=== PATIENT | female | born 1950 | race Caucasian/White ===

== ENCOUNTER 2019-04-24 07:54 | Outpatient (CLI) | payer MEDICARE, SELFPAY | END 2019-04-24 07:55 | disposition home or self-care (01) | PROVIDERS: PCP Internal Medicine; Visit Provider Nurse Practitioner | DX: E03.9 Hypothyroidism, unspecified (principal) | CPT/HCPCS: 36415; 84443 ==

== ENCOUNTER 2019-07-21 07:15 | Outpatient (CLI) | payer MEDICARE, SELFPAY ==
[2019-07-21 07:57] LABS: Alanine Aminotransferase 23 U/L (4-35); Albumin Level 4.5 g/dL (3.5-5.1); Alkaline Phosphatase 87 U/L (38-126); Aspartate Amino Transferase 29 U/L (14-36); Bilirubin,Total 0.6 mg/dL (0.2-1.3); Blood Urea Nitrogen 8 mg/dL (7-17); Calcium 10.4 mg/dL (8.4-10.2); Carbon Dioxide 29 mmol/L (22-30); Chloride 101 mmol/L (98-107); Estimated Glomerular Filt Rate > 60; Glucose 92 mg/dL (65-105); Potassium 3.7 mmol/L (3.4-5.0); Sodium 135 mmol/L (137-145)
[2019-07-21 08:08] LABS: Parathyroid Intact 95.9 pg/mL (7.5-53.5)
[2019-07-21 09:07] LABS: Free T4 Free Thyroxine 1.23 ng/mL (0.78-2.19)
[2019-07-23 22:34] LABS: Albumin 4.2 g/dL (3.8-4.8); Alpha 1 Globulin 0.3 g/dL (0.2-0.3); Alpha 2 Globulin 0.6 g/dL (0.5-0.9); Beta 1 Globulin 0.4 g/dL (0.4-0.6); Gamma Globulin 0.7 g/dL (0.8-1.7); Protein, Total 6.4 g/dL (6.1-8.1)
[2019-07-24 03:03] LABS: Triiodothyronine T3 Free 2.7 pg/mL (2.3-4.2)
[2019-07-25 16:13] LABS: PRA 1.64 ng/mL/h (0.25-5.82)
== END 2019-07-21 07:16 | disposition home or self-care (01) ==
PROVIDERS: PCP Internal Medicine; Referring Provider Internal Medicine Cardiovascular Disease; Visit Provider Internal Medicine Endocrinology, Diabetes & Metabolism
DX: E89.0 Postprocedural hypothyroidism (principal); I10 Essential (primary) hypertension; E83.52 Hypercalcemia
CPT/HCPCS: 36415; 80053; 82088; 83970; 84100; 84155; 84165; 84244; 84439; 84443; 84481

== ENCOUNTER 2019-07-28 12:43 | Outpatient (CLI) | payer MEDICARE, SELFPAY ==
--- NOTE | ~2019-07-28 | US_ITS ---
EXAMINATION: US thyroid DATE: 07/28/2019 13:14 INDICATION: Goiter. Radioactive iodine thyroid ablation 30 years ago. TECHNIQUE: Multiple ultrasound images of the thyroid were obtained. COMPARISON: Ultrasound 04/16/2018, chest CT 07/27/17 FINDINGS: The right thyroid lobe measures 0.7 cm. The left thyroid lobe measures 0.6 cm. No nodule. IMPRESSION: 1. Small thyroid. Reviewed, dictated and finalized at location A. IMPRESSION: 1. Small thyroid.
== END 2019-07-28 12:44 | disposition home or self-care (01) ==
PROVIDERS: PCP Internal Medicine; Visit Provider Internal Medicine Endocrinology, Diabetes & Metabolism
DX: E04.9 Nontoxic goiter, unspecified (principal)
CPT/HCPCS: 76536

== ENCOUNTER 2019-08-11 07:19 | Outpatient (CLI) | payer MEDICARE, SELFPAY ==
[2019-08-11 07:46] LABS: Blood Urea Nitrogen 17 mg/dL (7-17); Calcium 10.4 mg/dL (8.4-10.2); Carbon Dioxide 27 mmol/L (22-30); Chloride 100 mmol/L (98-107); Estimated Glomerular Filt Rate > 60; Glucose 91 mg/dL (65-105); Potassium 4.5 mmol/L (3.4-5.0); Sodium 133 mmol/L (137-145)
== END 2019-08-11 07:20 | disposition home or self-care (01) ==
PROVIDERS: PCP Internal Medicine; Visit Provider Internal Medicine Cardiovascular Disease
DX: I10 Essential (primary) hypertension (principal); Z79.899 Other long term (current) drug therapy; I71.2 Thoracic aortic aneurysm, without rupture
CPT/HCPCS: 36415; 80048

== ENCOUNTER → 2019-10-08 12:45 | Outpatient (CLI) | payer MEDICARE, SELFPAY ==
--- NOTE | ~2019-10-08 | MM_ITS ---
EXAMINATION: MM screening [facility]ie BI w yudith HISTORY: Screening TECHNIQUE: Craniocaudal and mediolateral oblique 3-D tomosynthesis images were obtained and synthetic 2-D images were generated. CAD analysis was submitted and interpreted. COMPARISON: Comparison to multiple prior studies sequentially, with oldest reviewed study dated 05/04. BREAST PARENCHYMAL COMPOSITION: There are scattered areas of fibroglandular density. FINDINGS: There is no evidence of suspicious mass, calcification, or architectural distortion to sugg est malignancy in either breast. There has been no suspicious interval change. IMPRESSION: 1. No mammographic evidence of malignancy. 2. Recommend routine screening mammography in one year. BI-RADS Category 1: Negative Reviewed, dictated and finalized at location A.
== END ==
PROVIDERS: Visit Provider Internal Medicine
DX: Z12.31 Encounter for screening mammogram for malignant neoplasm of breast (principal)
CPT/HCPCS: 77063; 77067

== ENCOUNTER → 2019-11-03 11:24 | Outpatient (CLI) | payer MEDICARE, SELFPAY ==
--- NOTE | ~2019-11-03 | DEXA_ITS ---
Bone Density Report Name: Freida Montana Age: 69 Sex: Female Ethnicity: White Date of : 1950 Indication: postmenopausal; screening for osteoporosis; height loss; Referring Provider: Mikie, Christen Portillo Study: Bone densitometry was performed. Exam Date: November 03, 2019 Accession number: [id number] Bone Density: Region BMD T-score Z-score Classification AP Spine (L1-L4) 0.890 -1.4 0.7 Osteopenia Femoral Neck (Left) 0.601 -2.2 -0.5 Osteopenia Total Hip (Left) 0.840 -0.8 0.6 Normal Femoral Neck (Right) 0.578 -2.4 -0.7 Osteopenia Total Hip (Right) 0.869 -0.6 0.9 Normal Total Hip Mean 0.855 -0.7 0.8 Normal World Health Organization criteria for BMD impression classify patients as: Normal (T-score at or above -1.0), Osteopenia (T-score between -1.0 and -2.5), or Osteoporosis (T-score at or below -2.5). 10-year Fracture Risk(1): Major Osteoporotic Fracture 13% Hip Fracture 3.0% Reported Risk Factors: [place] (), Neck BMD=0.578, BMI=23.1 (1) FRAX(R) Version 3.08. Fracture probability calculated for an untreated patient. Fracture probability may be lower if the patient has received treatment. Previous Exams: Region Exam Age BMD T-score BMD Change BMD Change Date g/cm2 vs Baseline vs Previous AP Spine(L1-L4) 11/03/2019 69 0.890 -1.4 -0.138* -0.079* 06/07/2012 62 0.970 -0.7 -0.059* -0.065* 01/03/2010 59 1.035 -0.1 0.007 0.007 03/04/2007 56 1.028 -0.2 Total Hip(Left) 11/03/2019 69 0.840 -0.8 -0.075* -0.053* 06/07/2012 62 0.894 -0.4 -0.022 0.004 01/03/2010 59 0.890 -0.4 -0.026 -0.026 03/04/2007 56 0.915 -0.2 Total Hip(Right) 11/03/2019 69 0.869 -0.6 -0.101* -0.009 06/07/2012 62 0.878 -0.5 -0.092* -0.035* 01/03/2010 59 0.913 -0.2 -0.057* -0.057* 03/04/2007 56 0.970 0.2 *Denotes significance at 95% confidence level, LSC for AP Spine = 0.022 g/cm2, LSC for Total Hip = 0.027 g/cm2 Clinical Information Provided by Patient: Has used the following medications: Vitamin D, Calcium Patient maximum height was 66.5 Menopause Age: 50 Does not regularly consume dairy products Drinks caffeinated beverages Onset of menses at age 16 Number of children 1 Impression: The patient has low bone mass, based on the Right Femoral Neck T
== END ==
PROVIDERS: PCP Internal Medicine; Visit Provider Internal Medicine Endocrinology, Diabetes & Metabolism
DX: N95.9 Unspecified menopausal and perimenopausal disorder (principal); M85.88 Other specified disorders of bone density and structure, other site; M85.852 Other specified disorders of bone density and structure, left thigh; M85.851 Other specified disorders of bone density and structure, right thigh
CPT/HCPCS: 77080

== ENCOUNTER 2019-11-12 08:23 | Outpatient (CLI) | payer MEDICARE, SELFPAY ==
[2019-11-12 09:09] LABS: Alanine Aminotransferase 17 U/L (4-35); Albumin Level 4.7 g/dL (3.5-5.1); Alkaline Phosphatase 81 U/L (38-126); Anion Gap 8 mmol/L (8-16); Aspartate Amino Transferase 25 U/L (14-36); Bilirubin,Total 0.7 mg/dL (0.2-1.3); Blood Urea Nitrogen 17 mg/dL (7-17); Calcium 10.9 mg/dL (8.4-10.2); Carbon Dioxide 28 mmol/L (22-30); Chloride 100 mmol/L (98-107); Estimated Glomerular Filt Rate > 60; Glucose 92 mg/dL (65-105); Phosphorus 3.2 mg/dL (2.5-4.5); Potassium 4.6 mmol/L (3.4-5.0); Sodium 136 mmol/L (137-145)
[2019-11-12 09:20] LABS: Parathyroid Intact 93.6 pg/mL (7.5-53.5)
[2019-11-12 09:41] LABS: Free T4 Free Thyroxine 1.37 ng/mL (0.78-2.19); Vitamin D 25 Hydroxy 73.2 ng/mL
== END 2019-11-12 08:24 | disposition home or self-care (01) ==
PROVIDERS: PCP Internal Medicine; Visit Provider Internal Medicine Endocrinology, Diabetes & Metabolism
DX: E03.9 Hypothyroidism, unspecified (principal); E21.0 Primary hyperparathyroidism
CPT/HCPCS: 36415; 80053; 82306; 83970; 84100; 84439; 84443; 84481

== ENCOUNTER 2019-11-14 08:05 | Outpatient (CLI) | payer MEDICARE, SELFPAY ==
[2019-11-14 08:50] LABS: Creatinine Urine 45.9 mg/dL
[2019-11-14 09:25] LABS: Creatinine 24 Hour Urine 0.5 gm/24 (0.8-1.8); Total Volume 24 Hour Urine 1200 ml
[2019-11-18 19:29] LABS: Total Volume 1200 mL; Urine Calcium 12.7 mg/dL
== END 2019-11-14 08:06 | disposition home or self-care (01) ==
PROVIDERS: PCP Internal Medicine; Visit Provider Internal Medicine Endocrinology, Diabetes & Metabolism
DX: E03.9 Hypothyroidism, unspecified (principal); E21.0 Primary hyperparathyroidism
CPT/HCPCS: 81050; 82340; 82570

== ENCOUNTER 2019-11-18 16:21 | Outpatient (CLI) | payer MEDICARE, SELFPAY ==
--- NOTE | ~2019-11-18 | CT_ITS ---
EXAMINATION: CT chest wo con EXAM DATE: 11/18/2019 16:36 INDICATION: Aortic valve insufficiency, ascending aortic aneurysm. TECHNIQUE: Spiral CT of the chest without contrast. Axial, coronal and sagittal images were reviewe d. Coronal maximum intensity pixel images of chest reviewed. The dose-length product (DLP) for this examination was 168.16 mGy-cm. The exposure was tailored according to patient size (auto mA exposur e control), and iterative reconstruction (ASIR) was used as additional dose reduction technique. Comp arison is made to prior examination from 06/07/2016. FINDINGS: At the level of pulmonary outflow tract the ascending aorta measures 4.8 cm, size unchange d going back to 2017. Mild emphysema and hyperinflation. No focal airspace disease. There are no pleu ral or pericardial effusions. Tracheobronchial tree is patent. There is no mediastinal, hilar or axillary lymphadenopathy. There is no pneumothorax. Mild cardiomegaly. No evidence of coronary a rterial calcification. Upper abdomen is unremarkable. There is mild to moderate thoracic spondylos is without osteoblastic or osteolytic lesions identified. IMPRESSION: Stable ascending aortic 4.8 cm aneurysm. Reviewed, dictated and finalized at location B.
== END 2019-11-18 16:22 | disposition home or self-care (01) ==
PROVIDERS: PCP Internal Medicine; Visit Provider Internal Medicine Cardiovascular Disease
DX: I35.1 Nonrheumatic aortic (valve) insufficiency (principal); I71.2 Thoracic aortic aneurysm, without rupture
CPT/HCPCS: 71250

== ENCOUNTER 2020-02-23 08:11 | Outpatient (CLI) | payer MEDICARE, SELFPAY ==
[2020-02-23 09:12] LABS: Alanine Aminotransferase 27 U/L (4-35); Albumin Level 4.5 g/dL (3.5-5.1); Alkaline Phosphatase 90 U/L (38-126); Anion Gap 8 mmol/L (8-16); Aspartate Amino Transferase 30 U/L (14-36); Bilirubin,Total 0.7 mg/dL (0.2-1.3); Blood Urea Nitrogen 16 mg/dL (7-17); Calcium 10.8 mg/dL (8.4-10.2); Carbon Dioxide 27 mmol/L (22-30); Chloride 98 mmol/L (98-107); Cholesterol 179 mg/dL (0-200); Estimated Glomerular Filt Rate > 60; Glucose 96 mg/dL (65-105); HDL Direct 62 mg/dL; Potassium 4.4 mmol/L (3.4-5.0); Sodium 133 mmol/L (137-145); Triglycerides 80 mg/dL (<150)
[2020-02-23 09:23] LABS: LDL Cholesterol Direct 90 mg/dL; Parathyroid Intact 112.3 pg/mL (7.5-53.5)
[2020-02-23 09:42] LABS: Thyroid Stimulating Hormone 0.925 uIU/mL (0.465-4.680)
== END 2020-02-23 08:12 | disposition home or self-care (01) ==
LOC: ANHLAB 08:25
PROVIDERS: PCP Internal Medicine; Visit Provider Internal Medicine
DX: E03.9 Hypothyroidism, unspecified (principal); I10 Essential (primary) hypertension; Z79.899 Other long term (current) drug therapy; E78.2 Mixed hyperlipidemia; E21.3 Hyperparathyroidism, unspecified
CPT/HCPCS: 36415; 80053; 80061; 83970; 84443

== ENCOUNTER 2020-05-17 08:19 | Outpatient (CLI) | payer MEDICARE, SELFPAY ==
[2020-05-17 09:08] LABS: Alanine Aminotransferase 23 U/L (4-35); Albumin Level 4.6 g/dL (3.5-5.1); Alkaline Phosphatase 80 U/L (38-126); Anion Gap 6 mmol/L (8-16); Aspartate Amino Transferase 30 U/L (14-36); Bilirubin,Total 0.6 mg/dL (0.2-1.3); Blood Urea Nitrogen 14 mg/dL (7-17); Calcium 10.7 mg/dL (8.4-10.2); Carbon Dioxide 28 mmol/L (22-30); Chloride 100 mmol/L (98-107); Estimated Glomerular Filt Rate 55; Glucose 92 mg/dL (65-105); Phosphorus 2.7 mg/dL (2.5-4.5); Potassium 4.6 mmol/L (3.4-5.0); Sodium 134 mmol/L (137-145)
[2020-05-17 09:17] LABS: Parathyroid Intact 101.2 pg/mL (7.5-53.5)
[2020-05-17 09:36] LABS: Thyroid Stimulating Hormone 0.837 uIU/mL (0.465-4.680)
[2020-05-17 09:53] LABS: Free T4 Free Thyroxine 1.26 ng/mL (0.78-2.19); Vitamin D 25 Hydroxy 81.9 ng/mL
[2020-05-21 06:34] LABS: Triiodothyronine T3 Free 2.8 pg/mL (2.3-4.2)
== END 2020-05-17 08:20 | disposition home or self-care (01) ==
PROVIDERS: PCP Internal Medicine; Visit Provider Internal Medicine Endocrinology, Diabetes & Metabolism
DX: E21.0 Primary hyperparathyroidism (principal); E03.9 Hypothyroidism, unspecified
CPT/HCPCS: 36415; 80053; 82306; 83970; 84100; 84439; 84443; 84481

== ENCOUNTER 2020-05-24 14:31 | Outpatient (CLI) | payer MEDICARE, SELFPAY | END 2020-05-24 14:32 | disposition home or self-care (01) | LOC: ANHCOVIDVC 14:31 | PROVIDERS: PCP Internal Medicine | DX: Z23 Encounter for immunization (principal) | CPT/HCPCS: 0001A; 91300 ==

== ENCOUNTER 2020-06-14 14:29 | Outpatient (CLI) | payer MEDICARE, SELFPAY | END 2020-06-14 14:30 | disposition home or self-care (01) | LOC: ANHCOVIDVC 14:29 | PROVIDERS: PCP Internal Medicine | DX: Z23 Encounter for immunization (principal) | CPT/HCPCS: 0002A; 91300 ==

== ENCOUNTER 2020-09-08 07:58 | Outpatient (CLI) | payer MEDICARE, SELFPAY ==
[2020-09-08 08:44] LABS: Sodium 132 mmol/L (137-145)
[2020-09-08 08:55] LABS: LDL Cholesterol Direct 73 mg/dL
[2020-09-08 09:11] LABS: Alanine Aminotransferase 20 U/L (4-35); Albumin Level 4.7 g/dL (3.5-5.1); Alkaline Phosphatase 73 U/L (38-126); Anion Gap 10 mmol/L (8-16); Aspartate Amino Transferase 25 U/L (14-36); Bilirubin,Total 0.8 mg/dL (0.2-1.3); Blood Urea Nitrogen 17 mg/dL (7-17); Calcium 11.1 mg/dL (8.4-10.2); Carbon Dioxide 26 mmol/L (22-30); Chloride 96 mmol/L (98-107); Cholesterol 174 mg/dL (0-200); Estimated Glomerular Filt Rate 49; Glucose 91 mg/dL (65-110); HDL Direct 64 mg/dL; Potassium 4.2 mmol/L (3.4-5.0); Triglycerides 61 mg/dL (<150)
== END 2020-09-08 07:59 | disposition home or self-care (01) ==
LOC: ANHLAB 08:04
PROVIDERS: PCP Internal Medicine; Visit Provider Nurse Practitioner
DX: E78.5 Hyperlipidemia, unspecified (principal)
CPT/HCPCS: 36415; 80053; 80061

== ENCOUNTER → 2020-10-22 12:05 | Outpatient (CLI) | payer MEDICARE, SELFPAY ==
--- NOTE | ~2020-10-22 | MM_ITS ---
EXAMINATION: MM screening cathie BI w yudith HISTORY: Screening mammogram TECHNIQUE: Craniocaudal and mediolateral oblique 3-D tomosynthesis images were obtained and synthetic 2-D images were generated. CAD analysis was submitted and interpreted. COMPARISON: 10/08/2019, 07/11/2018, 06/18/2017 bilateral digital screening mammogram examinations BREAST PARENCHYMAL COMPOSITION: There are scattered areas of fibroglandular density. FINDINGS: There is no evidence of suspicious mass, calcification, or architectural distortion to sugg est malignancy in either breast. There has been no suspicious interval change. IMPRESSION: 1. No mammographic evidence of malignancy. 2. Recommend routine screening mammography in one year. BI-RADS Category 1: Negative Reviewed, dictated and finalized at location A.
== END ==
PROVIDERS: PCP Internal Medicine; Visit Provider Internal Medicine
DX: Z12.31 Encounter for screening mammogram for malignant neoplasm of breast (principal)
CPT/HCPCS: 77063; 77067

== ENCOUNTER 2020-11-12 10:30 | Outpatient (CLI) | payer MEDICARE, SELFPAY ==
--- NOTE | ~2020-11-12 | CT_ITS ---
EXAMINATION: CT diagnostic chest wo con DATE: 11/12/2020 11:01 INDICATION: Thoracic aortic aneurysm TECHNIQUE: Computed tomography (CT) of the chest was performed without intravenous contrast. The dose -length product (DLP) was 136.28 mGy-cm. Automated exposure control and iterative reconstruction tech [employer] were employed. COMPARISON: 11/18/2019 FINDINGS: There is a stable 4.8 cm fusiform aneurysm of the ascending aorta measured at the level of the main pulmonary artery. No dissection is identified although sensitivity is limited by the absence of intravenous contrast. Cardiomegaly is noted. There is mild dependent atelectasis. No pathological ly enlarged thoracic lymph nodes are identified. There is no pleural effusion or pneumothorax. There is moderate thoracic spondylosis. IMPRESSION: 1. Stable fusiform aneurysm of the ascending aorta. Reviewed, dictated and finalized at location A.
== END 2020-11-12 10:31 | disposition home or self-care (01) ==
PROVIDERS: PCP Internal Medicine; Visit Provider Internal Medicine Cardiovascular Disease
DX: I71.2 Thoracic aortic aneurysm, without rupture (principal)
CPT/HCPCS: 71250

== ENCOUNTER 2020-11-15 09:00 | Outpatient (CLI) | payer MEDICARE, SELFPAY ==
[2020-11-15 09:33] LABS: Alanine Aminotransferase 22 U/L (4-35); Alkaline Phosphatase 79 U/L (38-126); Anion Gap 11 mmol/L (8-16); Aspartate Amino Transferase 31 U/L (14-36); Bilirubin,Total 0.7 mg/dL (0.2-1.3); Blood Urea Nitrogen 12 mg/dL (7-17); Calcium 11.1 mg/dL (8.4-10.2); Carbon Dioxide 23 mmol/L (22-30); Chloride 98 mmol/L (98-107); Estimated Glomerular Filt Rate 49; Glucose 103 mg/dL (65-110); Phosphorus 2.8 mg/dL (2.5-4.5); Potassium 4.3 mmol/L (3.4-5.0); Sodium 132 mmol/L (137-145)
[2020-11-15 09:46] LABS: Parathyroid Intact 119.4 pg/mL (7.5-53.5)
[2020-11-15 10:04] LABS: Thyroid Stimulating Hormone 0.908 uIU/mL (0.465-4.680)
[2020-11-15 10:17] LABS: Free T4 Free Thyroxine 1.63 ng/mL (0.78-2.19); Vitamin D 25 Hydroxy 66.8 ng/mL
[2020-11-18 06:51] LABS: Triiodothyronine T3 Free 2.6 pg/mL (2.3-4.2)
== END 2020-11-15 09:01 | disposition home or self-care (01) ==
LOC: ANHLAB 09:04
PROVIDERS: PCP Internal Medicine; Visit Provider Internal Medicine Endocrinology, Diabetes & Metabolism
DX: E21.0 Primary hyperparathyroidism (principal); E03.9 Hypothyroidism, unspecified
CPT/HCPCS: 36415; 80053; 82306; 83970; 84100; 84439; 84443; 84481

== ENCOUNTER 2021-03-14 07:58 | Outpatient (CLI) | payer MEDICARE, SELFPAY ==
[2021-03-14 08:41] LABS: Alanine Aminotransferase 19 U/L (4-35); Albumin Level 4.6 g/dL (3.5-5.1); Alkaline Phosphatase 85 U/L (38-126); Anion Gap 7 mmol/L (8-16); Aspartate Amino Transferase 26 U/L (14-36); Bilirubin,Total 0.7 mg/dL (0.2-1.3); Blood Urea Nitrogen 18 mg/dL (7-17); Calcium 10.9 mg/dL (8.4-10.2); Carbon Dioxide 25 mmol/L (22-30); Chloride 100 mmol/L (98-107); Cholesterol 166 mg/dL (0-200); Estimated Glomerular Filt Rate 44; Glucose 98 mg/dL (65-110); HDL Direct 54 mg/dL; Potassium 4.4 mmol/L (3.4-5.0); Sodium 132 mmol/L (137-145); Triglycerides 79 mg/dL (<150)
[2021-03-14 08:52] LABS: LDL Cholesterol Direct 72 mg/dL
== END 2021-03-14 07:59 | disposition home or self-care (01) ==
PROVIDERS: PCP Internal Medicine; Visit Provider Internal Medicine
DX: E78.2 Mixed hyperlipidemia (principal); I10 Essential (primary) hypertension
CPT/HCPCS: 36415; 80053; 80061

== ENCOUNTER 2021-05-19 12:39 | Outpatient (CLI) | payer MEDICARE, SELFPAY ==
[2021-05-19 13:41] LABS: Alanine Aminotransferase 20 U/L (4-35); Albumin Level 4.8 g/dL (3.5-5.1); Alkaline Phosphatase 105 U/L (38-126); Anion Gap 9 mmol/L (8-16); Aspartate Amino Transferase 30 U/L (14-36); Bilirubin,Total 0.6 mg/dL (0.2-1.3); Blood Urea Nitrogen 16 mg/dL (7-17); Calcium 10.7 mg/dL (8.4-10.2); Carbon Dioxide 26 mmol/L (22-30); Chloride 91 mmol/L (98-107); Estimated Glomerular Filt Rate 55; Glucose 109 mg/dL (65-110); Phosphorus 2.8 mg/dL (2.5-4.5); Sodium 126 mmol/L (137-145)
[2021-05-19 13:57] LABS: Free T4 Free Thyroxine 1.77 ng/mL (0.78-2.19); Vitamin D 25 Hydroxy 71.6 ng/mL
[2021-05-22 12:12] LABS: Triiodothyronine T3 Free 2.4 pg/mL (2.3-4.2)
== END 2021-05-19 12:40 | disposition home or self-care (01) ==
PROVIDERS: PCP Internal Medicine; Visit Provider Internal Medicine Endocrinology, Diabetes & Metabolism
DX: E03.9 Hypothyroidism, unspecified (principal); E21.0 Primary hyperparathyroidism
CPT/HCPCS: 36415; 80053; 82306; 83970; 84100; 84439; 84443; 84481

== ENCOUNTER 2021-09-21 08:29 | Outpatient (CLI) | payer MEDICARE, SELFPAY ==
[2021-09-21 10:05] LABS: Alanine Aminotransferase 23 U/L (6-35); Alkaline Phosphatase 77 U/L (38-126); Anion Gap 11 mmol/L (8-16); Aspartate Amino Transferase 30 U/L (14-36); Bilirubin,Total 0.6 mg/dL (0.2-1.3); Blood Urea Nitrogen 12 mg/dL (7-17); Calcium 11.3 mg/dL (8.4-10.2); Carbon Dioxide 25 mmol/L (22-30); Chloride 90 mmol/L (98-107); Cholesterol 156 mg/dL (0-200); Estimated Glomerular Filt Rate 49; Glucose 100 mg/dL (65-110); HDL Direct 65 mg/dL; Potassium 4.4 mmol/L (3.4-5.0); Sodium 126 mmol/L (137-145); Triglycerides 67 mg/dL (<150)
[2021-09-21 10:16] LABS: LDL Cholesterol Direct 63 mg/dL
== END 2021-09-21 08:30 | disposition home or self-care (01) ==
LOC: ANHLAB 08:32
PROVIDERS: PCP Internal Medicine; Visit Provider Nurse Practitioner
DX: E78.5 Hyperlipidemia, unspecified (principal)
CPT/HCPCS: 36415; 80053; 80061

== ENCOUNTER 2021-12-22 13:37 | Outpatient (CLI) | payer MEDICARE, SELFPAY ==
--- NOTE | ~2021-12-22 | CT_ITS ---
EXAMINATION:CT diagnostic chest wo con DATE: 12/22/2021 13:58 INDICATION: Ascending aortic aneurysm without rupture. TECHNIQUE: Computed tomography (CT) of the chest was performed without intravenous contrast. Automate d exposure control and iterative reconstruction technique were employed. The dose-length product (DLP ) was 135.41 mGy-cm. COMPARISON: Chest CT 11/12/2020 FINDINGS: There is mild scarring at the lung apices. There is mild atelectasis bilaterally. No pleura l effusion. Cardiomegaly is noted. No pericardial effusion. The aorta measures 4.6 cm at the sinuses of Valsalva, 4.2 cm at the sinotubular junction, 4.9 cm in the mid ascending aorta, 2.9 cm at the aor tic isthmus, and 2.5 cm in the mid descending aorta. There is moderate thoracic spondylosis and sever e cervical spondylosis. IMPRESSION: 1. Ectasia of ascending aorta measuring up to 4.9 cm, stable from 11/12/2020. Reviewed, dictated and finalized at location A. 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
== END 2021-12-22 13:38 | disposition home or self-care (01) ==
PROVIDERS: PCP Internal Medicine; Visit Provider Internal Medicine Cardiovascular Disease
DX: I71.40 Abdominal aortic aneurysm, without rupture, unspecified (principal)
CPT/HCPCS: 71250

== ENCOUNTER → 2022-01-06 10:35 | Outpatient (CLI) | payer MEDICARE, SELFPAY ==
--- NOTE | ~2022-01-06 | MM_ITS ---
EXAMINATION: MM screening [facility] BI w yudith HISTORY: Screening mammogram TECHNIQUE: Craniocaudal and mediolateral oblique 3-D tomosynthesis images were obtained and synthetic 2-D images were generated. CAD analysis was submitted and interpreted. COMPARISON: 10/22/2020, 10/08/2019, 07/11/2018 BREAST PARENCHYMAL COMPOSITION: There are scattered areas of fibroglandular density. FINDINGS: No suspicious mass, calcification, or architectural distortion are identified in either aries ast to suggest malignancy. There has been no suspicious interval change. IMPRESSION: 1. No mammographic evidence of malignancy. 2. Recommend routine screening mammography in one year. BI-RADS Category 1: Negative Reviewed, dictated and finalized at location A. 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
== END ==
PROVIDERS: PCP Internal Medicine; Visit Provider Internal Medicine
DX: Z12.31 Encounter for screening mammogram for malignant neoplasm of breast (principal)
CPT/HCPCS: 77063; 77067

== ENCOUNTER 2022-02-17 08:22 | Outpatient (CLI) | payer MEDICARE, SELFPAY ==
[2022-02-17 08:53] LABS: Alanine Aminotransferase 47 U/L (6-35); Albumin Level 4.7 g/dL (3.5-5.1); Alkaline Phosphatase 95 U/L (38-126); Anion Gap 9 mmol/L (8-16); Aspartate Amino Transferase 33 U/L (14-36); Bilirubin,Total 0.6 mg/dL (0.2-1.3); Blood Urea Nitrogen 17 mg/dL (7-17); Calcium 9.4 mg/dL (8.4-10.2); Carbon Dioxide 28 mmol/L (22-30); Chloride 98 mmol/L (98-107); Estimated Glomerular Filt Rate 55; Glucose 90 mg/dL (65-110); Phosphorus 3.1 mg/dL (2.5-4.5); Potassium 4.4 mmol/L (3.4-5.0); Sodium 135 mmol/L (137-145)
[2022-02-17 09:23] LABS: Thyroid Stimulating Hormone 0.967 uIU/mL (0.465-4.680)
[2022-02-17 10:35] LABS: Parathyroid Intact 117.7 pg/mL (7.5-53.5)
[2022-02-17 10:47] LABS: Free T4 Free Thyroxine 1.39 ng/mL (0.78-2.19); Vitamin D 25 Hydroxy 64.7 ng/mL
[2022-02-22 20:27] LABS: Triiodothyronine T3 Free 2.8 pg/mL (2.3-4.2)
== END 2022-02-17 08:23 | disposition home or self-care (01) ==
PROVIDERS: PCP Internal Medicine; Visit Provider Nurse Practitioner
DX: E03.9 Hypothyroidism, unspecified (principal); E21.0 Primary hyperparathyroidism
CPT/HCPCS: 36415; 80053; 82306; 83970; 84100; 84439; 84443; 84481

== ENCOUNTER → 2022-02-28 13:01 | Outpatient (CLI) | payer MEDICARE, SELFPAY ==
--- NOTE | ~2022-02-28 | DEXA_ITS ---
Bone Density Report Name: SEAN PORTILLO Age: 71 Sex: Female Ethnicity: White Date of : 1950 Indication: osteopenia; height loss; postmenopausal Referring Provider: Mikie, Christen Portillo Study: Bone densitometry was performed. Exam Date: February 28, 2022 Accession number: [id number] Bone Density: Region BMD T-score Z-score Classification AP Spine (L1-L4) 0.885 -1.5 0.7 Osteopenia Femoral Neck (Left) 0.553 -2.7 -0.8 Osteoporosis Total Hip (Left) 0.772 -1.4 0.2 Osteopenia Femoral Neck (Right) 0.530 -2.9 -1.0 Osteoporosis Total Hip (Right) 0.849 -0.8 0.8 Normal Total Hip Mean 0.811 -1.1 0.5 Osteopenia World Health Organization criteria for BMD impression classify patients as: Normal (T-score at or above -1.0), Osteopenia (T-score between -1.0 and -2.5), or Osteoporosis (T-score at or below -2.5). 10-year Fracture Risk: FRAX not reported because: Some T-score for Spine Total or Hip Total or Femoral Neck at or below -2.5 Previous Exams: Region Exam Age BMD T-score BMD Change BMD Change Date g/cm2 vs Baseline vs Previous AP Spine(L1-L4) 02/28/2022 71 0.885 -1.5 -0.143* -0.005 11/03/2019 69 0.890 -1.4 -0.138* -0.079* 06/07/2012 62 0.970 -0.7 -0.059* -0.065* 01/03/2010 59 1.035 -0.1 0.007 0.007 03/04/2007 56 1.028 -0.2 Total Hip(Left) 02/28/2022 71 0.772 -1.4 -0.144* -0.068* 11/03/2019 69 0.840 -0.8 -0.075* -0.053* 06/07/2012 62 0.894 -0.4 -0.022 0.004 01/03/2010 59 0.890 -0.4 -0.026 -0.026 03/04/2007 56 0.915 -0.2 Total Hip(Right) 02/28/2022 71 0.849 -0.8 -0.121* -0.020 11/03/2019 69 0.869 -0.6 -0.101* -0.009 06/07/2012 62 0.878 -0.5 -0.092* -0.035* 01/03/2010 59 0.913 -0.2 -0.057* -0.057* 03/04/2007 56 0.970 0.2 *Denotes significance at 95% confidence level, LSC for AP Spine = 0.022 g/cm2, LSC for Total Hip = 0.027 g/cm2 Clinical Information Provided by Patient: Has used the following medications: Vitamin D Patient maximum height was 66.5 Menopause Age: 50 No regular weight bearing exercise Does not regularly consume dairy products Drinks caffeinated beverages Onset of menses at age 16 Number of children 1 Impression: The patient has osteoporosis, based on the Right Femora
== END ==
PROVIDERS: PCP Internal Medicine; Visit Provider Internal Medicine Endocrinology, Diabetes & Metabolism
DX: M81.0 Age-related osteoporosis without current pathological fracture (principal); M85.88 Other specified disorders of bone density and structure, other site; M85.852 Other specified disorders of bone density and structure, left thigh
CPT/HCPCS: 77080

== ENCOUNTER 2022-03-31 08:42 | Outpatient (CLI) | payer MEDICARE, SELFPAY ==
[2022-03-31 10:23] LABS: Alanine Aminotransferase 44 U/L (6-35); Albumin Level 4.8 g/dL (3.5-5.1); Alkaline Phosphatase 95 U/L (38-126); Anion Gap 7 mmol/L (8-16); Aspartate Amino Transferase 38 U/L (14-36); Bilirubin,Total 0.7 mg/dL (0.2-1.3); Blood Urea Nitrogen 14 mg/dL (7-17); Calcium 9.6 mg/dL (8.4-10.2); Carbon Dioxide 28 mmol/L (22-30); Chloride 99 mmol/L (98-107); Cholesterol 177 mg/dL (0-200); Estimated Glomerular Filt Rate > 60; Glucose 91 mg/dL (65-110); HDL Direct 61 mg/dL; Potassium 4.5 mmol/L (3.4-5.0); Sodium 134 mmol/L (137-145); Triglycerides 77 mg/dL (<150)
[2022-03-31 10:34] LABS: LDL Cholesterol Direct 78 mg/dL
== END 2022-03-31 08:43 | disposition home or self-care (01) ==
PROVIDERS: PCP Nurse Practitioner; Visit Provider Internal Medicine
DX: E78.5 Hyperlipidemia, unspecified (principal); I10 Essential (primary) hypertension; Z79.899 Other long term (current) drug therapy
CPT/HCPCS: 36415; 80053; 80061

== ENCOUNTER 2022-07-20 07:00 | Outpatient (NON) | payer MEDICARE, SELFPAY | END 2022-07-20 07:01 | disposition home or self-care (01) | LOC: ANHLAB 07-21 10:02 | PROVIDERS: PCP Family Medicine; Visit Provider Internal Medicine Gastroenterology | DX: R19.5 Other fecal abnormalities (principal) | CPT/HCPCS: 88305 ==

== ENCOUNTER 2022-07-20 08:00 | Day surgery (SDC) | payer MEDICARE, SELFPAY ==
[2022-07-05 09:41] VITALS: BMI 20.9
--- NOTE | 2022-07-19 11:53 | WPDANESEPPF ---
Anes - Initial Pre Proc Eval Procedure: Operation Date: 07/20/22 09:30 Proposed Procedures p Diagnostic Colonoscopy - Ethan Balbuena MD <Jesu Hernandez MD - Last Filed: 07/19/22 11:55> Date/Time: 07/19/22 11:53 <Jesu Hernandez MD - Last Filed: 07/19/22 11:55> Surgeon: Ethan Balbuena MD <Jesu Hernandez MD - Last Filed: 07/19/22 11:55> Pre Op Diagnosis: Other Fecal Abnormalities <Jesu Hernandez MD - Last Filed: 07/19/22 11:55> Patient Data Age: 72 Gender: F Height: 1.68 m Weight: 59 kg <Jesu Hernandez MD - Last Filed: 07/19/22 11:55> Allergies Allergy/AdvReac Type Severity Reaction Status Date / Time No Known Allergies Allergy Unknown Verified 07/20/22 08:23 <Jesu Hernandez MD - Last Filed: 07/19/22 11:55> Home Medications Medication Instructions Recorded Confirmed Type spironolactone 25 1 tablet PO DAILY 09/11/19 07/20/22 History mg-hydrochlorothiazide 25 mg tablet levothyroxine 100 mcg tablet 100 mcg PO DAILY #90 tabs 10/07/19 07/20/22 Rx cholecalciferol (vitamin D3) 125 125 mcg PO DAILY 03/12/20 07/20/22 History mcg (5,000 unit) capsule multivitamin (Multiple Vitamins 1 tablet PO DAILY 03/12/20 07/20/22 History tablet) omega-3 fatty acids 1,000 mg 1,000 mg PO DAILY 03/12/20 07/20/22 History capsule (Fish Oil Concentrate) riboflavin (vitamin B2) 400 mg 400 mg PO DAILY 03/12/20 07/20/22 History tablet amlodipine 10 mg tablet 10 mg PO DAILY #90 tabs 12/14/21 07/20/22 Rx pravastatin 40 mg tablet See Rx Instructions .Route 02/15/22 07/20/22 Rx .COMPLEX #90 tabs cinacalcet 30 mg tablet 30 mg PO DAILY 04/06/22 07/20/22 History latanoprost 0.005 % eye drops 1 drp EACH EYE QPM 04/06/22 07/20/22 History lisinopril 40 mg tablet See Rx Instructions .Route 04/19/22 07/20/22 Rx .COMPLEX #180 tabs metoprolol succinate 50 mg See Rx Instructions .Route 06/27/22 07/20/22 Rx tablet,extended release 24 hr .COMPLEX #90 tabs sodium,potassium,mag sulfates 17.5 See Rx Instructions PO .COMPLEX 07/04/22 Rx gram-3.13 gram-1.6 gram oral soln #354 mL (Suprep Bowel Prep Kit) <Jesu Hernandez MD - Last Filed: 07/19/22 11:55> Patient hx anesthesia problems: none <Justin Harrell MD - Last Filed: 07/20/22 08:40> Family hx anesthesia problems: none <Justin Harrell MD - Last Filed: 07/20/22 08:40> Results Review: All pre-operative results and documents have been reviewed as part of the pre-operative evaluation. <Jesu Hernandez MD - Last Filed: 07/19/22 11:55> [facility] Past Medical History Medical History: Medical History Essential (primary) hypertension Glaucoma Hypercalcemia Hypothyroidism (acquired) Mild aortic stenosis 1.84 cm2 Mixed hyperlipidemia <Jesu Hernandez MD - Last Filed: 07/19/22 11:55> Family History Family History: Family History Father Family history of glaucoma, Onset Age: 90 Hypertension Family history of elevated blood lipids Family history of cardiovascular disease, Onset Age: 90 Mother Hypertension Family history of rheumatoid arthritis, Onset Age: 78 Sibling Family history of rheumatoid arthritis <Jesu Hernandez MD - Last Filed: 07/19/22 11:55> Social History Social History: Social History Smoking status: Never smoker Second hand tobacco smoke exposure: Yes Alcohol intake: former Alcohol use details: occasional Substance use: never Substance use type: does not use Lack of Transportation: No Lack of Food: Never True Current Housing: I Have Housing Concerned About Future Housing: No Difficulty Paying Gas/Electric Bills: No Difficulty Paying for Meds: No Currently Unemployed: No Education: High School Diploma/GED Difficulty w/ Childcare o
[2022-07-20 08:31] VITALS: BP 121/62; PULSE 64; RESP 16; TEMP 36.9; O2SAT 100
[2022-07-20] MEDS: LACTATED RINGERS 1,000 ML 150 ML IV CONT (08:36)
--- NOTE | 2022-07-20 09:15 | PM.HPGS ---
History of Present Illness History of Present Illness Consent: Risks, benefits, and alternatives have been discussed and questions answered. Patient agrees to proceed with procedure. Chief complaint: Other Fecal Abnormalities Narrative: Freida Loaiza is a 72 year old female Presents for screening colonoscopy. Patient recently found to have a positive Cologuard test. Patient states that her weight appetite bowel movements are normal. She denies abdominal pain. She has had no bleeding. Patient presents today for screening colonoscopy. Review of Systems Review of Systems: Review of systems noncontributory. [facility] Past Medical History Medical History Essential (primary) hypertension Glaucoma Hypercalcemia Hypothyroidism (acquired) Mild aortic stenosis 1.84 cm2 Mixed hyperlipidemia Family History Family History Father Family history of glaucoma, Onset Age: 90 Hypertension Family history of elevated blood lipids Family history of cardiovascular disease, Onset Age: 90 Mother Hypertension Family history of rheumatoid arthritis, Onset Age: 78 Sibling Family history of rheumatoid arthritis Social History Social History Smoking status: Never smoker Second hand tobacco smoke exposure: Yes Alcohol intake: former Alcohol use details: occasional Substance use: never Substance use type: does not use Lack of Transportation: No Lack of Food: Never True Current Housing: I Have Housing Concerned About Future Housing: No Difficulty Paying Gas/Electric Bills: No Difficulty Paying for Meds: No Currently Unemployed: No Education: High School Diploma/GED Difficulty w/ Childcare or Family Care: No Living arrangements: alone Spiritual care concerns: No Meds Home Medications and Allergies Home Medications Medication Instructions Recorded Confirmed Type spironolactone 25 1 tablet PO DAILY 09/11/19 07/20/22 History mg-hydrochlorothiazide 25 mg tablet levothyroxine 100 mcg tablet 100 mcg PO DAILY #90 tabs 10/07/19 07/20/22 Rx cholecalciferol (vitamin D3) 125 125 mcg PO DAILY 03/12/20 07/20/22 History mcg (5,000 unit) capsule multivitamin (Multiple Vitamins 1 tablet PO DAILY 03/12/20 07/20/22 History tablet) omega-3 fatty acids 1,000 mg 1,000 mg PO DAILY 03/12/20 07/20/22 History capsule (Fish Oil Concentrate) riboflavin (vitamin B2) 400 mg 400 mg PO DAILY 03/12/20 07/20/22 History tablet amlodipine 10 mg tablet 10 mg PO DAILY #90 tabs 12/14/21 07/20/22 Rx pravastatin 40 mg tablet See Rx Instructions .Route 02/15/22 07/20/22 Rx .COMPLEX #90 tabs cinacalcet 30 mg tablet 30 mg PO DAILY 04/06/22 07/20/22 History latanoprost 0.005 % eye drops 1 drp EACH EYE QPM 04/06/22 07/20/22 History lisinopril 40 mg tablet See Rx Instructions .Route 04/19/22 07/20/22 Rx .COMPLEX #180 tabs metoprolol succinate 50 mg See Rx Instructions .Route 06/27/22 07/20/22 Rx tablet,extended release 24 hr .COMPLEX #90 tabs sodium,potassium,mag sulfates 17.5 See Rx Instructions PO .COMPLEX 07/04/22 Rx gram-3.13 gram-1.6 gram oral soln #354 mL (Suprep Bowel Prep Kit) Allergies Allergy/AdvReac Type Severity Reaction Status Date / Time No Known Allergies Allergy Unknown Verified 07/20/22 08:23 Vital Signs Vital Signs - 24 hr 07/20/22 08:31 Temperature 98.5 F Pulse Rate 64 Respiratory Rate 16 Blood Pressure 121/62 Pulse Oximetry 100 Oxygen Delivery Room Air Exam Narrative: Physical exam reveals patient to be alert. Vital signs stable. HEENT exam is unremarkable. Patient is anicteric. Lungs are clear to auscultation and percussion. Heart is without murmur or extra sounds. Abdomen bowel sounds are present soft nontender with no organomegaly. Digital external recta
[2022-07-20 09:52] VITALS: BP 89/57; PULSE 62; RESP 16; O2SAT 100
[2022-07-20 10:02] VITALS: BP 113/86; PULSE 97; RESP 20; O2SAT 100
--- NOTE | 2022-07-20 10:05 | WPDANESPN ---
Anes - Prog Note Post-Op Date/Time: 07/20/22 10:05 Cardiovascular status: normal Respiratory status: normal Airway patency: baseline Mental status: baseline Post-Op hydration status: normal Vital Signs: Last Vital Signs Temp 36.9 C 07/20/22 08:31 Pulse 62 07/20/22 09:52 Resp 16 07/20/22 09:52 BP 89/57 L 07/20/22 09:52 Pulse Ox 100 07/20/22 09:52 O2 Del Method Room Air 07/20/22 09:52 Pain Score (VAS): 0/10 I/O: Intake & Output 07/19/22 07/20/22 07/20/22 23:59 07:59 15:59 Intake Total 600 Balance 600 Patient Feedback: Patient satisfied with anesthetic care.
[2022-07-20 10:12] VITALS: BP 110/78; PULSE 88; RESP 20; O2SAT 100
== END 2022-07-20 10:25 | disposition home or self-care (01) ==
PROVIDERS: PCP Family Medicine; Visit Provider Internal Medicine Gastroenterology
PROC: 0DJD8ZZ Inspection of Lower Intestinal Tract, Via Natural or Artificial Opening Endoscopic (ICD-10-PCS; CPT 45378; principal; 2022-07-20 09:30)
DX: R19.5 Other fecal abnormalities (principal)
CPT/HCPCS: 45385

== ENCOUNTER 2022-10-04 08:48 | Outpatient (CLI) | payer MEDICARE, SELFPAY ==
[2022-10-04 09:16] LABS: Alanine Aminotransferase 31 U/L (6-35); Albumin Level 4.9 g/dL (3.5-5.1); Alkaline Phosphatase 76 U/L (38-126); Anion Gap 9 mmol/L (8-16); Aspartate Amino Transferase 31 U/L (14-36); Bilirubin,Total 0.6 mg/dL (0.2-1.3); Blood Urea Nitrogen 18 mg/dL (7-17); Calcium 10.1 mg/dL (8.4-10.2); Carbon Dioxide 26 mmol/L (22-30); Chloride 99 mmol/L (98-107); Cholesterol 191 mg/dL (0-200); Estimated Glomerular Filt Rate 55; Glucose 95 mg/dL (65-110); HDL Direct 57 mg/dL; Potassium 5.1 mmol/L (3.4-5.0); Sodium 134 mmol/L (137-145); Triglycerides 126 mg/dL (<150)
[2022-10-04 09:30] LABS: LDL Cholesterol Direct 92 mg/dL
== END 2022-10-04 08:49 | disposition home or self-care (01) ==
LOC: ANHLAB 08:49
PROVIDERS: PCP Family Medicine; Visit Provider Nurse Practitioner
DX: E78.5 Hyperlipidemia, unspecified (principal)
CPT/HCPCS: 36415; 80053; 80061

== ENCOUNTER 2022-10-14 09:15 | Outpatient (CLI) | payer MEDICARE, SELFPAY ==
[2022-10-14 10:14] LABS: Alanine Aminotransferase 35 U/L (6-35); Albumin Level 4.9 g/dL (3.5-5.1); Alkaline Phosphatase 72 U/L (38-126); Anion Gap 7 mmol/L (8-16); Aspartate Amino Transferase 33 U/L (14-36); Bilirubin,Total 0.7 mg/dL (0.2-1.3); Blood Urea Nitrogen 19 mg/dL (7-17); Calcium 10.1 mg/dL (8.4-10.2); Carbon Dioxide 27 mmol/L (22-30); Chloride 98 mmol/L (98-107); Estimated Glomerular Filt Rate 49; Glucose 94 mg/dL (65-110); Phosphorus 2.8 mg/dL (2.5-4.5); Potassium 4.4 mmol/L (3.4-5.0); Sodium 132 mmol/L (137-145)
[2022-10-14 10:20] LABS: Basophils Percent Auto 0.7 % (0.2-1.2); Eosinophils Absolute Auto 0.4 K/mm3 (0-0.3); Eosinophils Percent Auto 6.5 % (0-4.4); Hematocrit 35.3 % (37.0-47.0); Hemoglobin 11.9 g/dL (12.0-15.0); Immature Granulocyte Absolute 0.01 K/mm3 (0.00-0.031); Immature Granulocyte Percent A 0.2 % (0-0.5); Lymphocytes Absolute Auto 1.05 K/mm3 (0.9-3.2); Lymphocytes Percent Auto 19.6 % (18.3-44.2); Mean Corpuscular HGB Conc 33.7 g/dl (32-36); Mean Corpuscular Hemoglobin 30.8 pg (26-34); Mean Corpuscular Volume 91.5 fl (80-100); Mean Platelet Volume 8.9 fl (7.4-10.4); Monocytes Absolute Auto 0.6 K/mm3 (0.1-0.6); Monocytes Percent Auto 11.7 % (2.6-8.5); Neutrophils Absolute Auto 3.3 K/mm3 (1.3-6.7); Neutrophils Percent Auto 61.3 % (45.5-73.1); Platelet Count Result 316 k/mm3 (150-375); Red Blood Count 3.86 M/mm3 (4.2-5.4); Red Cell Distribution Width 12.7 % (11.5-14.5); White Blood Count 5.4 K/mm3 (4.5-10.0)
[2022-10-14 10:24] LABS: Parathyroid Intact 114.9 pg/mL (7.5-53.5)
[2022-10-14 10:30] LABS: Free T4 Free Thyroxine 2.01 ng/mL (0.78-2.19); Vitamin D 25 Hydroxy 63.2 ng/mL
[2022-10-14 10:43] LABS: Thyroid Stimulating Hormone 0.277 uIU/mL (0.465-4.680)
[2022-10-18 13:19] LABS: Ionized Calcium 5.3 mg/dL (4.7-5.5)
== END 2022-10-14 09:16 | disposition home or self-care (01) ==
LOC: ANHLAB 09:19
PROVIDERS: PCP Family Medicine; Visit Provider Family Medicine
DX: E83.52 Hypercalcemia (principal); I35.0 Nonrheumatic aortic (valve) stenosis; I10 Essential (primary) hypertension; E78.2 Mixed hyperlipidemia; E21.3 Hyperparathyroidism, unspecified; E03.9 Hypothyroidism, unspecified
CPT/HCPCS: 36415; 80053; 82306; 82330; 83970; 84100; 84439; 84443; 85025

== ENCOUNTER 2022-12-11 09:38 | Outpatient (CLI) | payer MEDICARE, SELFPAY ==
--- NOTE | ~2022-12-11 | CT_ITS ---
EXAMINATION:CT diagnostic chest wo con DATE: 12/11/2022 09:59 INDICATION: Ascending aortic aneurysm. TECHNIQUE: Computed tomography (CT) of the chest was performed without intravenous contrast. Automate d exposure control and iterative reconstruction technique were employed. The dose-length product (DLP ) was 157.90 mGy-cm. COMPARISON: Chest CT 12/22/2021 FINDINGS: There is mild scarring at the lung apices. There is mild atelectasis bilaterally. There are a few pulmonary nodules measuring up to 3 mm, likely benign. No pleural effusion. The heart size is normal. There are coronary artery calcifications. No pericardial effusion. The aorta measures 4.6 cm at the sinuses of Valsalva, 4.3 cm at the sinotubular junction, 4.8 cm in the mid ascending aorta, 2. 6 cm at the aortic isthmus, and 2.7 cm in the mid descending aorta. There is severe cervical and thor acic spondylosis. IMPRESSION: 1. Stable ectasia of ascending aorta measuring up to 4.8 cm. Reviewed, dictated and finalized at location E.
== END 2022-12-11 09:39 | disposition home or self-care (01) ==
PROVIDERS: PCP Family Medicine; Visit Provider Internal Medicine Cardiovascular Disease
DX: I71.21 Aneurysm of the ascending aorta, without rupture (principal)
CPT/HCPCS: 71250

== ENCOUNTER 2023-01-15 09:36 | Outpatient (CLI) | payer MEDICARE, SELFPAY ==
[2023-01-15 10:28] LABS: Alanine Aminotransferase 40 U/L (6-35); Albumin Level 4.9 g/dL (3.5-5.1); Alkaline Phosphatase 71 U/L (38-126); Anion Gap 8 mmol/L (8-16); Aspartate Amino Transferase 38 U/L (14-36); Bilirubin,Total 0.7 mg/dL (0.2-1.3); Blood Urea Nitrogen 24 mg/dL (7-17); Calcium 10.2 mg/dL (8.4-10.2); Carbon Dioxide 26 mmol/L (22-30); Chloride 101 mmol/L (98-107); Estimated Glomerular Filt Rate 55; Glucose 95 mg/dL (65-110); Magnesium 1.3 mg/dL (1.6-2.3); Phosphorus 2.7 mg/dL (2.5-4.5); Potassium 4.6 mmol/L (3.4-5.0); Sodium 135 mmol/L (137-145)
[2023-01-15 10:37] LABS: Parathyroid Intact 125.5 pg/mL (7.5-53.5)
[2023-01-15 11:11] LABS: Vitamin D 25 Hydroxy 63.3 ng/mL
[2023-01-17 15:22] LABS: Albumin 4.2 g/dL (3.8-4.8); Alpha 1 Globulin 0.3 g/dL (0.2-0.3); Alpha 2 Globulin 0.7 g/dL (0.5-0.9); Beta 1 Globulin 0.5 g/dL (0.4-0.6); Gamma Globulin 0.7 g/dL (0.8-1.7); Protein, Total 6.7 g/dL (6.1-8.1)
[2023-01-18 21:58] LABS: Ionized Calcium 5.2 mg/dL (4.7-5.5)
[2023-01-19 10:44] LABS: Immunoglobulin A 96 mg/dL (70-320); TTG IGA AB <1.0 U/mL (<15.0)
== END 2023-01-15 09:37 | disposition home or self-care (01) ==
LOC: ANHLAB 09:38
PROVIDERS: PCP Family Medicine; Visit Provider Internal Medicine
DX: E03.9 Hypothyroidism, unspecified (principal); M81.0 Age-related osteoporosis without current pathological fracture; E21.3 Hyperparathyroidism, unspecified
CPT/HCPCS: 36415; 80053; 82306; 82330; 82570; 82784; 83735; 83970; 84100; 84155; 84156; 84165; 84166; 86364

== ENCOUNTER 2023-01-17 10:16 | Outpatient (CLI) | payer MEDICARE, SELFPAY ==
[2023-01-17 10:56] LABS: Creatinine Urine 50.2 mg/dL
[2023-01-17 10:58] LABS: Creatinine 24 Hour Urine 0.3 gm/24 (0.8-1.8); Total Volume 24 Hour Urine 700 ml
[2023-01-21 18:39] LABS: Total Volume 600 mL; Urine Calcium 7.2 mg/dL
== END 2023-01-17 10:17 | disposition home or self-care (01) ==
LOC: ANHLAB 10:19
PROVIDERS: PCP Family Medicine; Visit Provider Internal Medicine
DX: M81.0 Age-related osteoporosis without current pathological fracture (principal); E21.3 Hyperparathyroidism, unspecified
CPT/HCPCS: 81050; 82340; 82570

== ENCOUNTER 2023-01-26 10:26 | Outpatient (CLI) | payer MEDICARE, SELFPAY ==
[2023-01-30 21:10] LABS: Creatinine, Random Urine 114 mg/dL (20-275); Total Protein/Creatinine Ratio 88 mg/g creat (24-184)
== END 2023-01-26 10:27 | disposition home or self-care (01) ==
PROVIDERS: PCP Family Medicine; Visit Provider Internal Medicine
DX: E21.3 Hyperparathyroidism, unspecified (principal); M81.0 Age-related osteoporosis without current pathological fracture
CPT/HCPCS: 82570; 84156; 84166

== ENCOUNTER 2023-01-27 12:52 | Emergency (ER) | payer MEDICARE, SELFPAY ==
[2023-01-27 13:08] VITALS: BP 113/59; PULSE 66; RESP 16; TEMP 37.8; O2SAT 97
--- NOTE | 2023-01-27 13:20 | ED.URI ---
HPI - URI/Sore Throat General Chief Complaint: Upper Respiratory Infection Stated Complaint: diarrhea,cough Time Seen by Provider: 01/27/23 14:01 Source: patient and RN notes reviewed Mode of arrival: ambulatory Limitations: no limitations History of Present Illness HPI Narrative: 72-year-old female presents with concern for nausea and diarrhea. Reports symptoms started in the middle of the night, she had an episode of diarrhea and she took Imodium and has not had diarrhea since then. She reports her stomach feels queasy. She denies fever, body aches, chills, sweats, nasal congestion, rhinorrhea, cough, sore throat Related Data Home Medications Medication Instructions Recorded Confirmed spironolactone 25 1 tablet PO DAILY 09/11/19 01/27/23 mg-hydrochlorothiazide 25 mg tablet cholecalciferol (vitamin D3) 125 125 mcg PO DAILY 03/12/20 01/27/23 mcg (5,000 unit) capsule multivitamin (Multiple Vitamins 1 tablet PO DAILY 03/12/20 01/27/23 tablet) omega-3 fatty acids 1,000 mg 1,000 mg PO DAILY 03/12/20 01/27/23 capsule (Fish Oil Concentrate) riboflavin (vitamin B2) 400 mg 400 mg PO DAILY 03/12/20 01/27/23 tablet cinacalcet 30 mg tablet 30 mg PO DAILY 04/06/22 01/27/23 latanoprost 0.005 % eye drops 1 drp EACH EYE QPM 04/06/22 01/27/23 aspirin 81 mg tablet,delayed 81 mg PO DAILY 01/11/23 01/27/23 release atorvastatin 40 mg tablet 40 mg PO DAILY 01/11/23 01/27/23 Allergies Allergy/AdvReac Type Severity Reaction Status Date / Time No Known Allergies Allergy Unknown Verified 01/27/23 13:02 Review of Systems Review of Systems: CONSTITUTIONAL: Denies malaise, chills, sweats, or fever. EYES: Denies visual changes, redness, or discharge. ENT: Reports rhinorrhea, congestion, sinus pain, otalgia and sore throat. CARDIOVASCULAR: Denies chest pain, palpitations, or edema. RESPIRATORY: Reports cough. Denies dyspnea. GASTROINTESTINAL: Denies abdominal pain, vomiting. Reports nausea and 1 episode of diarrhea SKIN: Denies rash or itching. MUSCULOSKELETAL: Denies myalgia. NEUROLOGIC: Denies headache. All systems reviewed & are unremarkable except as noted in HPI and below PMFSH Past Medical History Medical History Essential (primary) hypertension Glaucoma Hypercalcemia Hypothyroidism (acquired) Mild aortic stenosis 1.84 cm2 Mixed hyperlipidemia Family History Family History Father Family history of glaucoma, Onset Age: 90 Hypertension Family history of elevated blood lipids Family history of cardiovascular disease, Onset Age: 90 Mother Hypertension Family history of rheumatoid arthritis, Onset Age: 78 Sibling Family history of rheumatoid arthritis Social History Social History Smoking status: Never smoker Second hand tobacco smoke exposure: Yes Alcohol intake: former Alcohol use details: occasional Substance use: never Substance use type: does not use Lack of Transportation: No Lack of Food: Never True Current Housing: I Have Housing Concerned About Future Housing: No Difficulty Paying Gas/Electric Bills: No Difficulty Paying for Meds: No Currently Unemployed: No Education: High School Diploma/GED Difficulty w/ Childcare or Family Care: No Living arrangements: alone Spiritual care concerns: No Comments At time of signature, agree with nursing past medical, surgical, social and family history. There is no relevant family history pertinent to the presenting complaint Exam Narrative: GENERAL: Well-appearing, well-nourished, and in no acute distress. HEAD: Normocephalic EYES: PERRLA, conjunctivae clear ENT: Nares clear. Mucous membranes moist. TM pearly clarke with sharp light reflex bilaterally; no tragal tenderness. Oropharynx not erythematous without lesions. Tonsils not
== END 2023-01-27 14:08 | disposition home or self-care (01) ==
PROVIDERS: Emergency Provider Nurse Practitioner; PCP Family Medicine
DX: R19.7 Diarrhea, unspecified (principal); Z20.822 Contact with and (suspected) exposure to COVID-19; I10 Essential (primary) hypertension; H40.9 Unspecified glaucoma; E03.9 Hypothyroidism, unspecified; I35.0 Nonrheumatic aortic (valve) stenosis; E78.2 Mixed hyperlipidemia; Z79.82 Long term (current) use of aspirin
CPT/HCPCS: 87426; 87804; 99213; C9803; G0463

== ENCOUNTER 2023-02-21 12:20 | Outpatient (CLI) | payer MEDICARE, SELFPAY ==
--- NOTE | ~2023-02-21 | US_ITS ---
EXAMINATION: US thyroid DATE: 02/21/2023 13:19 INDICATION: Hypothyroidism. TECHNIQUE: Multiple ultrasound images of the thyroid were obtained. COMPARISON: Ultrasound 07/28/2019 FINDINGS: The right thyroid lobe measures 2.7 x 0.8 x 0.7 cm. The left thyroid lobe measures 2.5 x 0.9 x 0.8 c m. There is heterogeneous echogenicity in the thyroid. Vascularity is normal. In the left thyroid lo be, there is a 10 mm solid, hypoechoic, wider than tall nodule with smooth margin without echogenic f oci (TI-RADS TR4). IMPRESSION: 1. Small thyroid nodule. Thyroid ultrasound is recommended in one year. Reviewed, dictated and finalized at location A. [facility] [employer]
--- NOTE | ~2023-02-21 | NM_ITS ---
EXAMINATION: NM parathyroid imaging w spect DATE: 02/21/2023 16:04 INDICATION: Hyperparathyroidism. Age-related osteoporosis with recurrent pathological fracture. TECHNIQUE: 21 2 mCi Tc99m sestamibi was administered intravenously. Anterior images of the neck were obtained immediately and at 2 hours. SPECT images of the neck were obtained. COMPARISON: Thyroid ultrasound 02/21/2023, parathyroid scintigraphy 04/15/2018 FINDINGS: There are 2 foci of persistent activity in the area of the left thyroid lobe. IMPRESSION: 1. 2 foci of persistent activity in the area of left thyroid lobe, which may be parathyroid hyperplas ia or adenomas. Reviewed, dictated and finalized at location A. VERY OPERATOR IMPRESSION: 1. 2 foci of persistent activity in the area of left thyroid lobe, which may be parathyroid hyperplasia or adenomas.
== END 2023-02-21 12:21 | disposition home or self-care (01) ==
LOC: ANHIMG 12:25
PROVIDERS: PCP Family Medicine; Visit Provider Internal Medicine
DX: M81.0 Age-related osteoporosis without current pathological fracture (principal); E03.9 Hypothyroidism, unspecified; E21.3 Hyperparathyroidism, unspecified; E04.1 Nontoxic single thyroid nodule
CPT/HCPCS: 76536; 78071; A9500

== ENCOUNTER 2023-03-14 14:00 | Outpatient (CLI) | payer MEDICARE, SELFPAY ==
[2023-03-14 15:18] LABS: Total Volume 24 Hour Urine 2550 ml
[2023-03-14 15:39] LABS: Free T4 Free Thyroxine 1.68 ng/mL (0.78-2.19)
[2023-03-14 15:41] LABS: Creatinine 24 Hour Urine 0.8 gm/24 (0.8-1.8); Creatinine Urine 33.5 mg/dL
[2023-03-20 04:58] LABS: Total Volume 2550 mL; Urine Calcium 7.4 mg/dL
== END 2023-03-14 14:01 | disposition home or self-care (01) ==
LOC: ANHLAB 14:07
PROVIDERS: PCP Internal Medicine; Visit Provider Family Medicine
DX: E03.9 Hypothyroidism, unspecified (principal); E21.3 Hyperparathyroidism, unspecified
CPT/HCPCS: 36415; 81050; 82340; 82570; 84439; 84443

== ENCOUNTER 2023-05-15 09:22 | Outpatient (CLI) | payer MEDICARE, SELFPAY ==
[2023-05-15 10:31] LABS: Alanine Aminotransferase 33 U/L (6-35); Albumin Level 4.7 g/dL (3.5-5.1); Alkaline Phosphatase 75 U/L (38-126); Anion Gap 7 mmol/L (4-12); Aspartate Amino Transferase 38 U/L (14-36); Bilirubin,Total 0.6 mg/dL (0.2-1.3); Blood Urea Nitrogen 39 mg/dL (7-17); Calcium 10.8 mg/dL (8.4-10.2); Carbon Dioxide 26 mmol/L (22-30); Chloride 100 mmol/L (98-107); Estimated Glomerular Filt Rate 28; Glucose 97 mg/dL (65-110); Potassium 4.1 mmol/L (3.4-5.0); Sodium 133 mmol/L (137-145)
[2023-05-15 10:35] LABS: Parathyroid Intact 123.8 pg/mL (7.5-53.5)
[2023-05-15 11:44] LABS: Free T4 Free Thyroxine 1.52 ng/mL (0.78-2.19); Vitamin D 25 Hydroxy 68.6 ng/mL
[2023-05-17 15:35] LABS: Ionized Calcium 5.6 mg/dL (4.7-5.5)
== END 2023-05-15 09:23 | disposition home or self-care (01) ==
PROVIDERS: PCP Family Medicine; Visit Provider Internal Medicine
DX: E21.3 Hyperparathyroidism, unspecified (principal); E03.9 Hypothyroidism, unspecified; M81.0 Age-related osteoporosis without current pathological fracture; E78.2 Mixed hyperlipidemia
CPT/HCPCS: 36415; 80053; 82306; 82330; 83970; 84439; 84443

== ENCOUNTER 2023-07-11 13:39 | Outpatient (CLI) | payer MEDICARE, SELFPAY ==
--- NOTE | ~2023-07-11 | US_ITS ---
Renal-Bladder ultrasound Clinical History: Chronic kidney disease Technique: Real-time sonographic imaging of the kidneys and urinary bladder was performed. Findings: The right kidney measures 10.3 cm in length and the left kidney measures 10.4 cm. There is no hydronephrosis or renal calculus identified. Renal cortical echogenicity is within normal limits. Right renal cyst present. The urinary bladder is well distended at the time of this exam. No intraluminal echoes are identified . No abnormal wall thickening is seen. Impression: No significant abnormality seen. Reviewed, dictated and finalized at location . Impression: No significant abnormality seen.
== END 2023-07-11 13:40 | disposition home or self-care (01) ==
PROVIDERS: PCP Family Medicine; Visit Provider Internal Medicine Nephrology
DX: N17.9 Acute kidney failure, unspecified (principal); N18.30 Chronic kidney disease, stage 3 unspecified
CPT/HCPCS: 76775

== ENCOUNTER 2023-07-18 11:16 | Outpatient (CLI) | payer MEDICARE, SELFPAY ==
[2023-07-18 12:27] LABS: Albumin Level 5.2 g/dL (3.5-5.1); Anion Gap 11 mmol/L (4-12); Blood Urea Nitrogen 32 mg/dL (7-17); Calcium 11.2 mg/dL (8.4-10.2); Carbon Dioxide 23 mmol/L (22-30); Chloride 97 mmol/L (98-107); Estimated Glomerular Filt Rate 37; Glucose 91 mg/dL (65-110); Phosphorus 2.6 mg/dL (2.5-4.5); Potassium 4.1 mmol/L (3.4-5.0); Sodium 131 mmol/L (137-145)
[2023-07-18 12:35] LABS: Complement C3 95 mg/dL (88-165)
[2023-07-18 13:29] LABS: Total Protein Urine Random 9 mg/dL
[2023-07-18 14:03] LABS: Creatinine Urine 43.6 mg/dL; Ur Ttl Prot Creatinine Ratio 0.21 mg/mg (0-0.20)
[2023-07-19 13:12] LABS: Protein, Total 6.9 g/dL (6.1-8.1)
[2023-07-19 14:12] LABS: Creatinine, Random Urine 42 mg/dL (20-275); Total Protein/Creatinine Ratio 95 mg/g creat (24-184)
[2023-07-19 17:13] LABS: Albumin 4.6 g/dL (3.8-4.8); Alpha 1 Globulin 0.3 g/dL (0.2-0.3); Alpha 2 Globulin 0.7 g/dL (0.5-0.9); Beta 1 Globulin 0.5 g/dL (0.4-0.6); Gamma Globulin 0.7 g/dL (0.8-1.7)
[2023-07-20 14:28] LABS: Anti Glomerular Basement Memb <1.0 AI
[2023-07-21 12:20] LABS: ANCA Screen NEGATIVE (NEGATIVE)
[2023-07-24 12:32] LABS: Anti Nuclear Antibody Pattern Nuclear, Homogeneous; Anti Nuclear Antibody Titer 1:40 titer
== END 2023-07-18 11:17 | disposition home or self-care (01) ==
LOC: ANHLAB 11:23
PROVIDERS: PCP Family Medicine; Visit Provider Internal Medicine Nephrology
DX: N17.9 Acute kidney failure, unspecified (principal); N18.30 Chronic kidney disease, stage 3 unspecified
CPT/HCPCS: 36415; 80069; 82570; 83520; 84155; 84156; 84165; 84166; 86036; 86038; 86039; 86160; 86225

== ENCOUNTER 2023-08-17 12:57 | Outpatient (CLI) | payer MEDICARE, SELFPAY ==
--- NOTE | ~2023-08-17 | CT_ITS ---
EXAMINATION:CT diagnostic chest wo con DATE: 08/17/2023 13:42 INDICATION: Aneurysm of ascending aorta without rupture. TECHNIQUE: Computed tomography (CT) of the chest was performed without intravenous contrast. Automate d exposure control and iterative reconstruction technique were employed. The dose-length product (DLP ) was 155.05 mGy-cm. COMPARISON: Chest CT 12/11/2022 FINDINGS: There is mild scarring at the lung apices. There is mild atelectasis in inferior left lung. No pleural effusion. The heart size is normal. No pericardial effusion. There are coronary artery ca lcifications. The aorta measures 4.9 cm at the sinuses of Valsalva, 4.3 cm at the sinotubular junctio n, 4.9 cm in the mid ascending aorta, 2.7 cm in the aortic isthmus, and 2.6 cm in the mid descending aorta. There is moderate thoracic spondylosis. IMPRESSION: 1. Stable ectasia of ascending aorta measuring 4.9 cm. Reviewed, dictated and finalized at location A.
== END 2023-08-17 12:58 | disposition home or self-care (01) ==
PROVIDERS: PCP Family Medicine; Visit Provider Nurse Practitioner
DX: I71.21 Aneurysm of the ascending aorta, without rupture (principal)
CPT/HCPCS: 71250

== ENCOUNTER 2023-10-12 08:25 | Outpatient (CLI) | payer MEDICARE, SELFPAY ==
[2023-10-12 08:55] LABS: Hemoglobin 11.7 g/dL (12.0-15.0); Mean Corpuscular HGB Conc 33.4 g/dl (32-36); Mean Corpuscular Volume 92.8 fl (80-100); Mean Platelet Volume 8.8 fl (7.4-10.4); Platelet Count Result 347 k/mm3 (150-375); Red Blood Count 3.77 M/mm3 (4.2-5.4); Red Cell Distribution Width 12.3 % (11.5-14.5); White Blood Count 5.5 K/mm3 (4.5-10.0)
[2023-10-12 09:17] LABS: Alanine Aminotransferase 34 U/L (6-35); Albumin Level 4.9 g/dL (3.5-5.1); Alkaline Phosphatase 94 U/L (38-126); Anion Gap 13 mmol/L (4-12); Aspartate Amino Transferase 37 U/L (14-36); Bilirubin,Total 0.6 mg/dL (0.2-1.3); Blood Urea Nitrogen 40 mg/dL (7-17); Calcium 10.5 mg/dL (8.4-10.2); Carbon Dioxide 24 mmol/L (22-30); Chloride 94 mmol/L (98-107); Estimated Glomerular Filt Rate 32; Glucose 100 mg/dL (65-110); Potassium 4.5 mmol/L (3.4-5.0); Sodium 131 mmol/L (137-145)
== END 2023-10-12 08:26 | disposition home or self-care (01) ==
LOC: ANHLAB 08:28
PROVIDERS: PCP Family Medicine; Visit Provider Family Medicine
DX: E78.2 Mixed hyperlipidemia (principal); E03.9 Hypothyroidism, unspecified; I35.0 Nonrheumatic aortic (valve) stenosis; I10 Essential (primary) hypertension; E21.3 Hyperparathyroidism, unspecified; M81.0 Age-related osteoporosis without current pathological fracture
CPT/HCPCS: 36415; 80053; 84443; 85027

== ENCOUNTER 2023-11-06 14:23 | Outpatient (CLI) | payer MEDICARE, SELFPAY ==
[2023-11-06 15:14] LABS: Parathyroid Intact 138.9 pg/mL (14.5-75.2)
[2023-11-06 15:22] LABS: Anion Gap 15 mmol/L (4-12); Blood Urea Nitrogen 39 mg/dL (7-17); Calcium 10.1 mg/dL (8.4-10.2); Carbon Dioxide 23 mmol/L (22-30); Chloride 94 mmol/L (98-107); Estimated Glomerular Filt Rate 34; Glucose 102 mg/dL (65-110); Sodium 132 mmol/L (137-145)
[2023-11-06 15:37] LABS: Free T4 Free Thyroxine 1.38 ng/mL (0.78-2.19)
[2023-11-06 16:49] LABS: Potassium 4.4 mmol/L (3.4-5.0)
[2023-11-08 15:48] LABS: Ionized Calcium 5.3 mg/dL (4.7-5.5)
== END 2023-11-06 14:24 | disposition home or self-care (01) ==
LOC: ANHLAB 14:28
PROVIDERS: PCP Family Medicine; Visit Provider Internal Medicine
DX: M81.0 Age-related osteoporosis without current pathological fracture (principal); E03.9 Hypothyroidism, unspecified; E78.2 Mixed hyperlipidemia; E83.52 Hypercalcemia
CPT/HCPCS: 36415; 80048; 82330; 83970; 84439; 84443

== ENCOUNTER 2023-11-12 12:33 | Outpatient (CLI) | payer MEDICARE, SELFPAY ==
--- NOTE | ~2023-11-12 | US_ITS ---
EXAMINATION: US FNA w image guidance DATE: 11/12/2023 13:46 INDICATION: Left thyroid nodule. TECHNIQUE: The procedure and its benefits and risks were discussed with the patient. Risks specifically discusse d included bleeding. The patient verbalized understanding of the risks and agreed to proceed. The nec k was prepped and draped in the usual sterile manner. 1% lidocaine was used for local anesthesia. 4 passes were made with a 25G needle into the lesion under ultrasound guidance. There were no immedia te complications. FINDINGS: Grayscale ultrasound images demonstrate needles advanced into a 1.3 x 0.5 x 0.4 cm mixed cystic and s olid nodule in left thyroid lobe for biopsy. IMPRESSION: 1. Ultrasound-guided fine needle aspiration of a left thyroid nodule. Preliminary findings demonstra leonidas nondiagnostic samples. The biopsy was stopped at this point due to the small dimension of the nod ule along the trajectory of the needle and the proximity to the trachea. Reviewed, dictated and finalized at location A. IMPRESSION: 1. Ultrasound-guided fine needle aspiration of a left thyroid nodule. Prelimin harrison findings demonstrated nondiagnostic samples. The biopsy was stopped at this point due to the small dimension of the nodule along the trajectory of the nee dle and the proximity to the trachea.
== END 2023-11-12 12:34 | disposition home or self-care (01) ==
PROVIDERS: PCP Family Medicine; Visit Provider Internal Medicine
DX: E04.1 Nontoxic single thyroid nodule (principal)
CPT/HCPCS: 10005; 88172; 88173; 88177; 88305

== ENCOUNTER 2023-11-15 14:48 | Outpatient (CLI) | payer MEDICARE, SELFPAY ==
--- NOTE | ~2023-11-15 | MM_ITS ---
EXAMINATION: MM screening cathie BI w yudith HISTORY: Screening TECHNIQUE: Craniocaudal and mediolateral oblique 3-D tomosynthesis images were obtained and synthetic 2-D images were generated. CAD analysis was submitted and interpreted. COMPARISON: Comparison to multiple prior studies sequentially, with oldest reviewed study dated 06/06. BREAST PARENCHYMAL COMPOSITION: Not dense: There are scattered areas of fibroglandular density. FINDINGS: There is no evidence of suspicious mass, calcification, or architectural distortion to sugg est malignancy in either breast. There has been no suspicious interval change. IMPRESSION: 1. No mammographic evidence of malignancy. 2. Recommend routine screening mammography in one year. BI-RADS Category 1: Negative Reviewed, dictated and finalized at location B.
== END 2023-11-15 14:49 | disposition home or self-care (01) ==
LOC: MICIMG 14:49
PROVIDERS: PCP Family Medicine; Visit Provider Family Medicine
DX: Z12.31 Encounter for screening mammogram for malignant neoplasm of breast (principal)
CPT/HCPCS: 77063; 77067

== ENCOUNTER 2023-11-22 12:38 | Outpatient (CLI) | payer MEDICARE, SELFPAY ==
[2023-11-22 13:26] LABS: Albumin Level 5.1 g/dL (3.5-5.1); Anion Gap 14 mmol/L (4-12); Blood Urea Nitrogen 24 mg/dL (7-17); Calcium 10.5 mg/dL (8.4-10.2); Carbon Dioxide 25 mmol/L (22-30); Chloride 94 mmol/L (98-107); Estimated Glomerular Filt Rate 40; Glucose 101 mg/dL (65-110); Phosphorus 3.4 mg/dL (2.5-4.5); Potassium 4.1 mmol/L (3.4-5.0); Sodium 133 mmol/L (137-145)
[2023-11-22 13:30] LABS: Creatinine Urine 120.6 mg/dL; Total Protein Urine Random 6 mg/dL; Ur Ttl Prot Creatinine Ratio 0.05 mg/mg (0-0.20)
== END 2023-11-22 12:39 | disposition home or self-care (01) ==
PROVIDERS: PCP Family Medicine; Visit Provider Internal Medicine Nephrology
DX: I12.9 Hypertensive chronic kidney disease with stage 1 through stage 4 chronic kidney disease, or unspecified chronic kidney disease (principal); N18.32 Chronic kidney disease, stage 3b
CPT/HCPCS: 36415; 80069; 82570; 84156

== ENCOUNTER 2024-03-18 09:48 | Outpatient (CLI) | payer MEDICARE, SELFPAY ==
--- OUTSIDE RECORDS SUMMARY | 2024-03-18 10:24 | XMS_ITS | Patient Health Summary ---
Author Organization [facility] [employer] Address [address] [place] [address] Care Team Providers Care Immigration Associate Name Role Phone Vladimir Apple MD Primary Care Provider [phone] Note from [facility] [place][note 2],non-owned Affiliates and Associated Physician Practices is amultiple site organization consisting of ambulatory clinics and hospital sitesin [place], [place], [place] and [place]. This disclosure is being madepursuant to the Care Everywhere program and may not contain all information available regarding this patient. Last updated 17.[facility] [employer] Allergies No known active allergies Medications * Be aware that medications may not be up to date on this document. Alwaysverify current medications with the patient. * lisinopril (Prinivil; Zestril) 40 MG tablet Take 1 (one) tablet by mouth 2 times daily * amLODIPine (Norvasc) 10 MG tablet Take 1 (one) tablet by mouth once daily * levothyroxine (Synthroid) 100 MCG tablet(Started 11/21/2022) Take 1 (one) tablet by mouth every morning * metoprolol succinate XL 24hr (Toprol XL) 50 MG tablet Take 1 (one) tablet by mouth once daily * spironolactone-hydroCHLOROthiazide (Aldactazide 25) 25-25 MG tablet(Started 09/07/2022) Take 1 (one) tablet by mouth once daily * atorvastatin (Lipitor) 40 MG tablet Take 1 (one) tablet by mouth once daily * latanoprost (Xalatan) 0.005 % ophthalmic solution(Started 06/13/2023) Instill 1 (one) drop into both eyes at bedtime * Riboflavin 400 MG Take 1 tablet by mouth once daily * multivitamin daily tablet Take 1 (one) tablet by mouth once daily * [place]-3 Fatty Acids (fish oil) 500 MG capsule Take 1,200 (one thousand two hundred) mg by mouth once daily * vitamin D3 (Cholecalciferol) 25 MCG (1000 UNITS) tablet Take 2 (two) tablets by mouth once daily * acetaminophen (Tylenol) 500 MG tablet Take 1 (one) tablet by mouth every 4 hours as needed for Fever or Pain Maximum allowable Acetaminophen amount = 4 Grams (4000 mg) / 24 hours. * aspirin EC (Ecotrin) 81 MG tablet Take 1 (one) tablet by mouth once daily * cinacalcet (Sensipar) 30 MG tablet Take 0.5 (one-half) tablet by mouth once daily Active Problems Problem Noted Date Diagnosed Date Primary hyperparathyroidism 07/26/2023 Immunizations * FLU VACCINE TRI IIV3 SPLIT IM (FLUVIRIN)(Given 12/07/2013) * INFLUENZA VACCINE(Given 12/15/2013, 11/18/2012, 11/10/2011) * INFLUENZA VACCINE, ADJUVANTED, QUADR. (FLUAD QUADRIVALENT; 65Y+) (AIIV4)(Given 10/18/2019) * INFLUENZA VACCINE, HIGH-DOSE, QUADR. (FLUZONE HIGH-DOSE QUADRIVALENT; 65Y+), 0.7 ML (HD-IIV4)(Given 10/10/2022, 10/05/2021, 10/22/2020) * INFLUENZA VACCINE, HIGH-DOSE, TRIV. (FLUZONE HIGH-DOSE TRIVALENT; 65Y+) (HD-IIV3)(Given 11/11/2018, 11/25/2017, 11/07/2016, 12/23/2015) * INFLUENZA VACCINE, TRIV. (FLUZONE; FLULAVAL; FLUARIX; AFLURIA TRIVALENT; 6MO+), 0.5 ML (IIV3)(Given 10/31/2014) * PNEUMOCOCCAL PCV20 CONJ VAC IM(Given 10/05/2021) * PNEUMOCOCCAL PPV VACCINE(Given 10/18/2019) * Pneumococcal Pcv13 Conj(Given 12/23/2015) * TDAP, HISTORIC VACCINE(Given 10/11/2022) * ZOSTER VACCINE, LIVE(Given 12/07/2013) * Zoster Hzv Vacc Recombinant Inj Im(Given 02/14/2020) Social History Tobacco Use Types Packs/Day Years Used Date Smoking Tobacco: Never Smokeless Tobacco: Never Tobacco Cessation:Counseling Given: Not Answered Alcohol Use Standard Drinks/Week Comments Yes 0 (1 standard drink = 0.6 oz pur e alcohol) 2 a month Sex and Gender Information Value Date Recorded Sex Assigned at Not on file Gender Identity Not on file Sexual Orientation Not on file Last Filed Vital Signs Vital Sign Reading Time Taken Comments Blood Pressure 105/67 07/25/2023 2:39 PM CDT Pulse 62 07/25/2023 2:39 PM CDT Temperature - - Respiratory Rate - - Oxygen Saturation - - Inhaled Oxygen Concentration - - Weight 63.9 kg (140 lb 12.8 oz) 07/25/2023 2:39 PM CDT Height 167.6 cm (5' 6 ) 07/25/2023 2:39 PM CDT Body Mass Index 22.73 07/25/2023 2:39 PM CDT Care Teams Immigration Associate Relationship Specialty Start Date End Date Vladimir Apple MD [address] [place] [address] PCP - General Family Medicine 07/25/23
--- OUTSIDE RECORDS SUMMARY | 2024-03-18 10:24 | XMS_ITS | Clinical Summary ---
Author Organization [facility] [employer] Address [address] [place] [address] Care Team Providers Care Peoplesoft Hr Developer Name Role Phone Vladimir Apple MD Primary Care Provider [phone] Source Comments [facility] [employer],non-owned Affiliates and Associated Physician Practices is amultiple site organization consisting of ambulatory clinics and hospital sitesin [place], [place], [place] and [place]. This disclosure is being madepursuant to the Care Everywhere program and may not contain all information available regarding this patient. Last updated 17.[facility] [employer] Allergies No known active allergies Medications * Be aware that medications may not be up to date on this document. Alwaysverify current medications with the patient. Medication Sig Dispensed Refills Start Date End Date Status lisinopril (Prinivil; Zestril) 40 MG tablet Take 1 (one) tablet by mouth 2 times daily Active amLODIPine (Norvasc) 10 MG tablet Take 1 (one) tablet by mouth once daily Active levothyroxine (Synthroid) 100 MCG tablet Take 1 (one) tablet by mouth every morning 11/21/2022 Active metoprolol succinate XL 24hr (Toprol XL) 50 MG tablet Take 1 (one) tablet by mouth once daily Active spironolactone-hydr oCHLOROthiazide (Aldactazide 25) 25-25 MG tablet Take 1 (one) tablet by mouth once daily 09/07/2022 Active atorvastatin (Lipitor) 40 MG tablet Take 1 (one) tablet by mouth once daily Active latanoprost (Xalatan) 0.005 % ophthalmic solution Instill 1 (one) drop into both eyes at bedtime 06/13/2023 Active Riboflavin 400 MG Take 1 tablet by mouth once daily Active multivitamin daily tablet Take 1 (one) tablet by mouth once daily Active [place]-3 Fatty Acids (fish oil) 500 MG capsule Take 1,200 (one thousand two hundred) mg by mouth once daily Active vitamin D3 (Cholecalciferol) 25 MCG (1000 UNITS) tablet Take 2 (two) tablets by mouth once daily Active acetaminophen (Tylenol) 500 MG tablet Take 1 (one) tablet by mouth every 4 hours as needed for Fever or Pain Maximum allowable Acetaminophen amount = 4 Grams (4000 mg) / 24 hours. Active aspirin EC (Ecotrin) 81 MG tablet Take 1 (one) tablet by mouth once daily Active cinacalcet (Sensipar) 30 MG tablet Take 0.5 (one-half) tablet by mouth once daily Active Active Problems Problem Noted Date Diagnosed Date Primary hyperparathyroidism 07/26/2023 Immunizations Name Administration Dates Next Due FLU VACCINE TRI IIV3 SPLIT I M (FLUVIRIN) 12/07/2013 INFLUENZA VACCINE 12/15/2013,11/18/2012,11/10/19 12 INFLUENZA VACCINE, ADJUVANTE D, QUADR. (FLUAD QUADRIVALENT; 65Y+) (AIIV4) 10/18/2019 INFLUENZA VACCINE, HIGH-DOSE , QUADR. (FLUZONE HIGH-DOSE QUADRIVALENT; 65Y+), 0.7 ML (HD-IIV4) 10/10/2022,10/05/2021,10/22/2020 INFLUENZA VACCINE, HIGH-DOSE , TRIV. (FLUZONE HIGH-DOSE TRIVALENT; 65Y+) (HD-IIV3) 11/11/2018,11/25/2017,11/07/2016,2015 INFLUENZA VACCINE, TRIV. (FL UZONE; FLULAVAL; FLUARIX; AFLURIA TRIVALENT; 6MO+), 0.5 ML (IIV3) 10/31/2014 PNEUMOCOCCAL PCV20 CONJ VAC IM 10/05/2021 PNEUMOCOCCAL PPV VACCINE 10/18/2019 Pneumococcal Pcv13 Conj 12/23/2015 TDAP, HISTORIC VACCINE 10/11/2022 ZOSTER VACCINE, LIVE 12/07/2013 Zoster Hzv Vacc Recombinant Inj Im 02/14/2020 Family History Medical History Relation Name Comments Hypertension Father Arthritis - Rheumatoid Mother Arthritis - Rheumatoid Sister Relation Name Status Comments Father Mother Sister Social History Tobacco Use Types Packs/Day Years [...] Mass Index 22.73 07/25/2023 2:39 PM CDT Plan of Treatment Health Maintenance Due Date Last Done Comments BONE DENSITY TESTING 1950 COLOGUARD (AGES 45-75) - COLON CA SCREENING 1950 COLON MONITORING 1950 COLONOSCOPY - COLON CA SCREENING 1950 CT COLONOGRAPHY - COLON CA SCREENING 1950 Colorectal Cancer Screening 1950 FIT - COLON CA SCREENING 1950 FLEX SIG - COLON CA SCREENING 1950 MAMMOGRAM 1950 HEPATITIS C SCREENING 03/25/1968 ZOSTER VACCINE (3 of 3) 04/10/2020 02/14/2020, 12/07 COVID-19 VACCINE ( season) 2023 11/28/2022, 05/23/2022, 12/15/2020, Additional history exists INFLUENZA VACCINE (#1) 2023 , 10/05/2021, 10/22/2020, Additional history exists DEPRESSION SCREENING 02/13/2024 MEDICARE AWV ? CALENDAR YEAR 2024 Respiratory Syncytial Virus (RSV) Vaccine Pt: or over 60 yrs (1 - 1-dose 75+ series) 2025 DTAP/TDAP/TD VACCINES (2 - Td or Tdap) 10/11/2032 10/11/2022 PNEUMOCOCCAL VACCINE 50+ Completed 10/05/ 022, 10/18/2019, 12/23/2015 HEPATITIS B VACCINE Aged Out No longe r eligible based on patient's age to complete this topic HIB VACCINE Aged Out No longer eligi ble based on patient's age to complete this topic HPV VACCINE Aged Out No longer eligi ble based on patient's age to complete this topic MENINGOCOCCAL (Group B) VACCINE Aged Out No longer eligible based on patient's age to complete this topic MENINGOCOCCAL VACCINE Aged Out No raiza albert eligible based on patient's age to complete this topic Care Teams Peoplesoft Hr Developer Relationship Specialty Start Date End Date Vladimir Apple MD [address] [place] [id number] PCP - General Family Medicine 07/25/23
--- OUTSIDE RECORDS SUMMARY | 2024-03-18 10:24 | XMS_ITS | Referral Summary ---
Author Organization [facility] [employer] Address [address] [place] [address] Care Team Providers Care Nurses Supervisor Name Role Phone Vladimir Apple MD Primary Care Provider [phone] Source Comments [facility] [employer],non-owned Affiliates and Associated Physician Practices is amultiple site organization consisting of ambulatory clinics and hospital sitesin [place], [place], [place] and [place]. This disclosure is being madepursuant to the Care Everywhere program and may not contain all information available regarding this patient. Last updated 17.[facility] [employer] Allergies No known active allergies Medications * [...] (one) tablet by mouth once daily Active [place]-3 Fatty Acids (fish oil) 500 MG capsule [...] Zoster Hzv Vacc Recombinant Inj Im 02/14/2020 Social History Tobacco Use Types Packs/Day Years [...] 07/25/2023 2:39 PM CDT Plan of Treatment Not on file Care Teams Nurses Supervisor Relationship Specialty Start Date End Date Vladimir Apple MD [address] [place] [id number] PCP - General Family Medicine 07/25/23
--- OUTSIDE RECORDS SUMMARY | 2024-03-18 10:24 | XMS_ITS | Encounter Summary ---
Author Organization [facility] [employer] Address [address] [place] [address] Care Team Providers Care Art Librarian Name Role Phone Javed Chaudhary MD Primary Care Provider [phone] Lion Crane DO Primary Care Provider [phone] Vladimir Apple MD Primary Care Provider [phone] Eric Mills MD Unavailable [phone] Encounter Details Date Type Department Care Team (Late st Contact Info) Description 05/23/2016 Orders Only [facility] ProviderCristopher MD [address] [place] [id number] Social History Tobacco Use Types Packs/Day Years Used Date Smoking Tobacco: Never Alcohol Use Standard Drinks/Week Comments Yes 0 (1 standard drink = 0.6 oz pur e alcohol) Comments Unknown Sex and Gender Information Value Date Recorded Sex Assigned at Not on file 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 Historical Provider [facility] Final Result documented in this encounter Visit Diagnoses Not on filedocumented in this encounter Care Teams Art Librarian Relationship Specialty Start Date End Date Javed Chaudhary MD [address] [place] [address] PCP - General 05/12/16 07/16/18 Lion Crane DO [address] [place] [address] PCP - General Internal Medicine 07/17/18 11/26/22 Vladimir Apple MD [address] [place] [address] PCP - General Family Practice 11/27/22 Eric Mills MD [address] [facility] [address] [place] [address] Referring Physician Internal Medicine 03/17/24 documented as of this encounter
--- OUTSIDE RECORDS SUMMARY | 2024-03-18 10:24 | XMS_ITS | Clinical Summary ---
Author Organization [facility] Address [address] [place] [address] Care Team Providers Care Ball Warper Tender Name Role Phone Vladimir Apple MD Primary Care Provider [phone] Eric Mills MD Unavailable [phone] Allergies No known active allergies Medications cholecalciferol (VITAMIN D3) 2,000 unit tablet take 1 tablet by Oral route every day 0 0 4 Active omega-3 fatty acids-vitamin E (FISH OIL) 1,000 mg capsule take 1 by Oral route every day 0 0 4 Active latanoprost (XALATAN) 0.005 % ophthalmic solution instill 1 drop by ophthalmic route every day into affected eye(s) in the evening 0 0 7 Active metoprolol XL (TOPROL-XL) 50 mg 24 hr tablet take 1 tablet by oral route every day 90 3 4 Active coenzyme Q10 100 mg capsule Take 1 capsule (100 mg total) by mouth daily Active riboflavin, vitamin B2, 400 mg tablet Take by mouth Active amLODIPine (NORVASC) 10 mg tabletIndications :Benign essential HTN TAKE 1 TABLET BY MOUTH EVERY DAY 90 tablet 1 2 Active levothyroxine (SYNTHROID) 100 mcg tablet Take 1 tablet (100 mcg total) by mouth every morning 3 Active cinacalcet (SENSIPAR) 30 mg tablet Take 1 tablet (30 mg total) by mouth daily 3 Active atorvastatin (LIPITOR) 40 mg tablet Take 1 tablet (40 mg total) by mouth daily 30 tablet 11 3 Active aspirin 81 mg enteric coated tablet Take 1 tablet (81 mg total) by mouth daily 30 tablet 11 3 Active lisinopriL (PRINIVIL,ZESTRIL ) 40 mg tabletIndications :Essential hypertension Take 1 tablet (40 mg total) by mouth daily 30 tablet 11 4 Active spironolactone-hy droCHLOROthiazide (ALDACTAZIDE) 25-25 mg per tabletIndications :Primary hypertension TAKE 1 TABLET BY MOUTH EVERY DAY 90 tablet 3 4 Active Active Problems Problem Noted Date Diagnosed Date Nonrheumatic aortic (valve) insufficiency 2017 Aneurysm, ascending aorta 07/23/2017 Essential hypertension 07/23/2017 Hypercholesteremia 07/23/2017 Myalgia 07/23/2017 Surgical History Surgery Date Site/Laterality Comments CATARACT EXTRACTION Medical History Medical History Date Comments Hx Other Medical htn, glaucoma, hypothyroid, cataracts, hld, AI, ro; Comments: [facility] 09/30/2013 - Osteoporosis 2023 Glaucoma Hypertension Family History Medical History Relation Name Comments Heart disease Father Carlos Pfeiffer took some type of heart med Hypertension Father Carlos Pfeiffer Rheum arthritis Mother Heart disease Sister Meagan briggs Relation Name Status Comments Father Carlos Pfeiffer Exp age 90 intr acranial bleed.after a fall Mother Rheumatoid arth ritis affected internal organs. 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 Gender Identity Not on file Sexual Orientation Not on file Obstetrics History Last Filed Vital Signs Vital Sign Reading Time Taken Comments Blood Pressure 90/56 08/01/2023 1:50 PM CDT Pulse 63 08/01/2023 1:50 PM CDT Temperature 36.3 ??C (97.3 ??F) 07/16/2019 11:12 AM C DT Respiratory Rate 12 07/23/2017 3:31 PM CDT Oxygen Saturation 96% 08/01/2023 1:50 PM CDT Inhaled Oxygen Concentration - - Weight 63 kg (139 lb) 08/01/2023 1:50 PM CDT Height 170.2 cm (5' 7 ) 08/01/2023 1:50 PM CDT Body Mass Index 21.77 08/01/2023 1:50 PM CDT Plan of Treatment Health Maintenance Due Date Last Done Comments Breast Cancer Screening-Mammogram 1950 Colon Cancer Screening-Colonoscopy 1950 Depression Screening 1950 Fall Risk Assessment 1950 Hepatitis C Screening 1950 Osteoporosis Screening-Bone Density Scan 1950 Hepatitis B Screening 1968 Well Visit 65+ 2015 Zoster Vaccine (3 of 3) 04/10/2020 02/14/2020, 12/07 Influenza Vaccine (#1) 2023 , 11/11/2018, 11/25/2017, Additional history exists DTaP/Tdap/Td Vaccine (2 - Td or Tdap) 10/11/2032 10/11/2022 Pneumococcal vaccine 65+ Completed 10/18/2019, 12/13 Insurance MEDICARE SOLUTIONS [employer] MEDICARE PPO Care Teams Ball Warper Tender Relationship Specialty Start Date End Date Vladimir Apple MD PCP - General Family Practice 11/27/22 Eric Mills MD [address] [place] [address] Referring Physician Internal Medicine 03/17/24
--- OUTSIDE RECORDS SUMMARY | 2024-03-18 10:24 | XMS_ITS | Referral Summary ---
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
[2024-03-18 10:58] LABS: Alanine Aminotransferase 44 U/L (6-35); Albumin Level 4.9 g/dL (3.5-5.1); Alkaline Phosphatase 76 U/L (38-126); Anion Gap 12 mmol/L (4-12); Aspartate Amino Transferase 31 U/L (14-36); Bilirubin,Total 0.8 mg/dL (0.2-1.3); Blood Urea Nitrogen 33 mg/dL (7-17); Calcium 11.5 mg/dL (8.4-10.2); Carbon Dioxide 24 mmol/L (22-30); Chloride 98 mmol/L (98-107); Estimated Glomerular Filt Rate 40; Glucose 93 mg/dL (65-110); Phosphorus 2.8 mg/dL (2.5-4.5); Potassium 4.4 mmol/L (3.4-5.0); Sodium 134 mmol/L (137-145)
[2024-03-18 11:10] LABS: Parathyroid Intact 103.4 pg/mL (14.5-75.2)
[2024-03-18 11:25] LABS: Creatinine Urine 105.8 mg/dL; Total Protein Urine Random 8 mg/dL; Ur Ttl Prot Creatinine Ratio 0.08 mg/mg (0-0.20)
[2024-03-18 11:32] LABS: Thyroid Stimulating Hormone 0.772 uIU/mL (0.465-4.680)
[2024-03-18 11:40] LABS: Free T4 Free Thyroxine 1.58 ng/dL (0.78-2.19); Vitamin D 25 Hydroxy 79.3 ng/mL
[2024-03-20 12:42] LABS: Ionized Calcium 5.7 mg/dL (4.7-5.5)
== END 2024-03-18 09:49 | disposition home or self-care (01) ==
PROVIDERS: PCP Family Medicine; Referring Provider Internal Medicine Nephrology; Visit Provider Internal Medicine
DX: I12.9 Hypertensive chronic kidney disease with stage 1 through stage 4 chronic kidney disease, or unspecified chronic kidney disease (principal); N18.32 Chronic kidney disease, stage 3b; E78.2 Mixed hyperlipidemia; E03.9 Hypothyroidism, unspecified; E21.3 Hyperparathyroidism, unspecified; M81.0 Age-related osteoporosis without current pathological fracture; N25.81 Secondary hyperparathyroidism of renal origin; E55.9 Vitamin D deficiency, unspecified
CPT/HCPCS: 36415; 80053; 82306; 82330; 82570; 83970; 84100; 84156; 84439; 84443

== ENCOUNTER 2024-04-22 10:48 | Outpatient (CLI) | payer MEDICARE, SELFPAY ==
--- NOTE | ~2024-04-22 | DEXA_ITS ---
Bone Density Report Name: SEAN DOVE Age: 74 Sex: Female Ethnicity: White Date of : 1950 Indication: hyperparathyroidism; height loss; secondary osteoporosis; Referring Provider: ANNE RUSHING Study: Bone densitometry was performed. Exam Date: April 22, 2024 Accession number: [id number] Bone Density: Region BMD T-score Z-score Classification AP Spine(L1-L4) 0.874 -1.6 0.8 Osteopenia Femoral Neck (Left) 0.599 -2.3 -0.2 Osteopenia Total Hip (Left) 0.802 -1.1 0.6 Osteopenia Femoral Neck (Right) 0.614 -2.1 -0.1 Osteopenia Total Hip (Right) 0.814 -1.0 0.7 Normal Total Hip Mean 0.808 -1.1 0.7 Osteopenia World Health Organization criteria for BMD impression classify patients as: Normal (T-score at or above -1.0), Osteopenia (T-score between -1.0 and -2.5), or Osteoporosis (T-score at or below -2.5). 10-year Fracture Risk(1): Major Osteoporotic Fracture 15% Hip Fracture 3.9% Reported Risk Factors: [place] (), Neck BMD=0.599, BMI=25.0, secondary osteoporosis (1) FRAX(R) Version 3.08. Fracture probability calculated for an untreated patient. Fracture probability may be lower if the patient has received treatment. Clinical Information Provided by Patient: Has secondary osteoporosis Has used the following medications: Vitamin D Has the following medical conditions: Hyperparathyroidism Patient maximum height was 67 Menopause Age: 40 No regular weight bearing exercise Drinks caffeinated beverages Onset of menses at age 15 Number of children 1 Impression: The patient has low bone mass, based on the Left Femoral Neck T-score. The patient has an estimated ten-year risk of hip fracture of 3.9% and an estimated ten-year risk of major fracture of 15%, based on the WHO FRAX algorithm. Discussion: BONE DENSITY IS LOW AT ONE OR MORE SKELETAL SITES. THE PATIENT'S BMD AND CLINICAL RISK FACTORS CONTRIBUTE TO THIS PATIENT'S INCREASED RISK OF FRACTURE. This patient's lowest T-score is low at one or more skeletal sites. It meets the World Health Organization's (WHO) criteria for ?low bone mass? (T-score between -1.0 and -2.5). The patient's 10-year risk of hip fracture as calculated by FRAX exceeds the threshold where pharmacological therapy is recommended by the National Osteoporosis Foundation (NOF). However, all treatment decisions require clinical judgment and consideration of individual patient factors, including patient preferences, comorbidities, previous drug use, risk factors not captured in the FRAX model (e.g., frailty, falls, vitamin D deficiency, increased bone turnover, interval significant decline in bone density) and possible under or overestimation of fracture risk by FRAX. The patient should follow a healthful lifestyle (good nutrition with adequate calcium and vitamin D, and appropriate weight-bearing exercise). Follow-Up: Consider a repeat BMD and Vertebral Fracture Assessment (VFA) exam in 2 years or sooner if medically necessary, to reassess this patient's status. Reported by: GATO on 04/22/2024 11:26:00 AM. Reviewed, dictated and finalized at location Martha ALCANTAR
--- OUTSIDE RECORDS SUMMARY | 2024-04-22 12:21 | XMS_ITS | Referral Summary ---
Author Organization [facility] Address [address] [address] Care Team Providers Care Undercover Cop Name Role Phone Vladimir Apple MD Primary Care Provider [phone] Source Comments [facility],non-owned Affiliates and Associated Physician Practices is amultiple site organization consisting of ambulatory clinics and hospital sitesin [place], [place], [place] and [place]. This disclosure is being madepursuant to the Care Everywhere program and may not contain all information available regarding this patient. Last updated 17.[facility] Allergies No known active allergies Medications * [...] (one) tablet by mouth once daily Active [facility]-3 Fatty Acids (fish oil) 500 MG capsule [...] of Treatment Not on file Care Teams Undercover Cop Relationship Specialty Start Date End Date Vladimir Apple MD [address] [place] [id number] PCP - General Family Medicine 07/25/23
--- OUTSIDE RECORDS SUMMARY | 2024-04-22 12:21 | XMS_ITS | Data Portability ---
Author Organization [facility] [employer], Main Office Address [address] [place] [address] Care Team Providers Care Wool Brusher Name Role Phone RUFINOREJI Primary Care Provider Assessment No assessment recorded. Plan of Treatment Reminders Order Date Submit Date Provider Last Modified By Organization Details Last Modified Time Details Appointments None recorded. Lab vitamin D, 25-hydroxy , total, serum [address] (Lab), [address] [place] [address], [id number], 3 14:31:31 CMP, serum or plasma [address] (Lab), [address] [place] [address], [id number], 3 14:31:32 phosphorus , serum or plasma [address] (Lab), [address] [place] [address], [address], 3 14:31:32 PTH (parathyro id hormone), intact + calcium, serum or plasma [address] (Lab), [address] [place] [address], [address], 3 14:31:32 TSH + free T4, serum [address] (Lab), [address] [place] [address], [address], 3 14:31:31 T3, free, serum or plasma [address] (Lab), [address], [place], [address], 3 14:31:32 Referral ENT surgery referral - Needs parathyroi d surgeon; has osteoporos is of hips bilaterall y; calcium under 11 mg/dL only because we have her on cinacalcet 2022 023 [facility], [address], [address], [place], [address], 3 14:40:32 Procedures None recorded. Surgeries None recorded. Imaging SPECT-CT, parathyroi d 2022 023 [id number] [facility] Radiology Special Procedures Only, [address] , [place], [address], 3 14:34:24 Medication Orders None recorded. Patient TargetsNo targets recorded. Patient InstructionsNo instructions recorded. Reason for Referral ENT Surgery Referral for Hyp erparathyroidism Needs parathyroid surgeon; has osteoporosis of hips bilaterally; calcium under 11 mg/dL only because we have her on cinacalcet Referring Physician: Christen Deluna, Endocrinology, Encounter Date: 04/26/2022 Results Created Date Observation Date Name Description Value Unit Range Abnormal Flag Note LastModifiedBy Organization Detail LastModifiedTime 02/28/19 23 02/28/2022 DEXA No observ ation record ed. [id number] [facility] [address], [place], [address], 04/12/2022 04:52:32 Result Notes None recorded. Problems Name Problem SNOMED Code Status Onset Date Resolution Date Notes Provider Name and Address Organization Details Recorded Time Hyperparathyr oidism 39273201 Active 2022 Christen Deluna MD [address], [facility] [address], [place], [address] , [facility] [employer] [facility] 3 14:20:41 Postmenopausa l osteoporosis 251255731 Active 2022 Christen Deluna MD [address], [place], [address] , [place] [employer] [facility] 3 14:26:33 Primary hyperparathyr oidism 71094298 Active 2021 Not Available [facility] 3 04:46:11 Impaired fasting glycemia 972111163 Active 2021 Not Available [facility] 3 04:46:11 Hypothyroidis m 92861605 Active 2021 Not Available [facility] 3 04:46:11 Problem Notes None recorded. Procedures Surgical History None recorded. Imaging Results Imaging Date Name Status LastModified by Organiz ation Details LastModified Time 02/28/2022 [id number] [facility] [address], [place], [address], 04/12/2022 04:52:32 Procedure Notes None recorded. Medical Equipment None Reported. Allergies No known drug allergies Medications Name Sig Start Date Stop Date Status Note LastModified by Organization Details LastModified Time latanoprost 0.005 % eye drops INSTILL 1 DROP INTO BOTH EYES AT BEDTIME active Not Available Not Available No t Available pravastatin 40 mg tablet TAKE 1 TABLET BY MOUTH EVERY DAY active Not Available Not Available No t Available metoprolol succinate ER 50 mg tablet,exte nded release 24 hr TAKE 1 TABLET BY MOUTH EVERY DAY active Not Available Not Available No t Available spironolact one 25 mg-hydrochl orothiazide 25 mg tablet TAKE 1 TABLET BY MOUTH EVERY DAY active Not Available Not Available No t Available amlodipine 5 mg tablet TAKE 1 TABLET BY MOUTH EVERY DAY 07/10 completed Not Available Not Available Not Available levothyroxi ne 100 mcg tablet TAKE 1 TABLET BY MOUTH EVERY DAY IN THE MORNING active Not Available Not Available No t Available levothyroxi ne 88 mcg tablet TAKE 1 TABLET BY MOUTH EVERY DAY 07/10 completed Not Available Not Available Not Available amlodipine 10 mg tablet TAKE 1 TABLET BY MOUTH EVERY DAY active Not Available Not Available No t Available hydrochloro thiazide 25 mg tablet TAKE 1 TABLET BY MOUTH EVERY DAY 08/04 completed Not Available Not Available Not Available mupirocin 2 % topical ointment APPLY TO AFFECTED AREA TWICE A DAY active Not Available Not Available No t Available lisinopril 40 mg tablet TAKE 1 TABLET BY MOUTH TWICE A DAY active Not Available Not Available No t Available Pneumovax-2 3 25 mcg/0.5 mL injection syringe PHARMACY ADMINISTE RED active Not Available Not Available No t Available cinacalcet 30 mg tablet TAKE 1 TABLET BY MOUTH EVERY DAY active Not Available Not Available No t Available Shingrix (PF) 50 mcg/0.5 mL intramuscul ar suspension, kit active Not Available Not Available Not Available Fluzone High-Dose 2019-20 (PF) 180 mcg/0.5 mL intramuscul ar syringe TO BE ADMINISTE RED BY PHARMACIS T FOR IMMUNIZAT ION 04/26 completed Not Available Not Available Not Available Fluad Quad 7827-9723(6 5yr up)(PF) 60 mcg (15 mcg x 4)/0.5mL IM syringe PHARMACY ADMINISTE RED 04/26 completed Not Available Not Available Not Available Vitals Date Recorded Body mass index (BMI) Body height Oxygen saturation Oxygen saturation in Arterial blood by Pulse oximetry Heart rate Body temperature Body weight Systolic blood pressure Diastolic blood pressure Provider Name and Address Organization Details Last Updated DateTime 1 21.3 kg/m2 168.91 cm 98 % 98 % 58 /min 98.4 [degF] 91812.3 8 g 100 mm[Hg] 62 mm[Hg] Not Available [facility] 3 04:44:54 Date Recorded Body mass index (BMI) Body height Oxygen saturation Oxygen saturation in Arterial blood by Pulse oximetry Heart rate Body temperature Body weight Systolic blood pressure Diastolic blood pressure Provider Name and Address Organization Details Last Updated DateTime 1 21.6 kg/m2 168.91 cm 98 % 98 % 53 /min 98.3 [degF] 79545.5 6 g 128 mm[Hg] 70 mm[Hg] Not Available [facility] 3 04:44:54 Date Recorded Body mass index (BMI) Body height Oxygen saturation Oxygen saturation in Arterial blood by Pulse oximetry Heart rate Body temperature Body weight Systolic blood pressure Diastolic blood pressure Provider Name and Address Organization Details Last Updated DateTime 2 20.3 kg/m2 168.91 cm 98 % 98 % 60 /min 97.6 [degF] 98676.1 g 118 mm[Hg] 80 mm[Hg] Not Available [facility] 3 04:44:54 Date Recorded Body height Body mass index (BMI) Body weight Body temperature Heart rate Systolic blood pressure Diastolic blood pressure Provider Name and Address Organization Details Last Updated DateTime 3 168.91 cm 21.6 kg/m2 77391.5 6 g 97.6 [degF] 63 /min 130 mm[Hg] 84 mm[Hg] Fatoumata Cortez CMA [place] [facility] [place] [employer] 3 14:05:27 Social History Question Answer Notes LastModified by Organizat ion Details LastModified Time Tobacco Smoking Status Never Smoker Not Available [facility] 04/12/2022 04:30:16 What Is Your Level Of Alcohol Consumption? None [id number] Information not available 04/12/2022 What Is Your Level Of Caffeine Consumption? Moderate [id number] Information not available 04/12/2022 How Much Tobacco Do You Chew? None [id number] Information not available 04/12/2022 In The 14 Days Before Symptom Onset, Have You Had Close Contact With A Laboratory-confir med COVID-19 While That Case Was Ill? No [id number] Information not available 04/12/2022 In The 14 Days Before Symptom Onset, Have You Had Close Contact With A Person Who Is Under Investigation For COVID-19 While That Person Was Ill? No [id number] Information not available 04/12/2022 Which Illicit Or Recreational Drugs Have You Used? None [id number] Information not available 04/12/2022 Do You Or Have You Ever Used E-cigarettes Or Vape? Never Used Electronic Cigarettes [id number] Information not available 04/12/2022 What Is Your Relationship Status? [id number] Information not available 04/12/2022 Sex: Unknown Functional Status None recorded. Mental Status None recorded. Family History Nothing Reported. Medical History Condition Response HYPERTHYROIDISM Y HYPERTENSION Y Gynecological HistoryNo gynecological history recorded. Obstetrics History GPAL:G 0 P 0 0 0 0 Past Encounters Encounter ID Performer Location Encounter Start Date Encounter Closed Date Diagnosis/Indication Diagnosis SNOMED-CT Code Diagnosis ICD10 Code Diagnosis Note [id number] [facility] [address] [place], [place] [address] 05/25/2020 00:00:00 05/25/2020 15:40:32 [id number] [facility] [address] [place], [place] [address] 11/23/2020 00:00:00 11/23/2020 16:42:54 [id number] [facility] [address] [place], [place] [address] 11/25/2021 00:00:00 11/25/2021 17:16:15 [id number] Christen Deluna MD [facility] [address] [place], [place] [address] 04/26/2022 13:57:01 04/26/2022 14:34:24 Hyperparathyroidism 51201400 E21.3 Last serum calcium of 11.3 mg/dL- started cinacalcet since new year and most recent calcium of 9.4 mg/dL- however patient had finding of bilateral osteoporos is and due to this finding patient would be an ideal candidate for parathyroi dectomy. Patient is not wishing to undergo aggressive measures for management of parathyroi d disease however discussed with patient if her serum calcium is increasing to above 11 to 11.5 mg/dL or higher(i is does if not taking cinacalcet ) and she has evidence of severe bone loss especially at cortical bone site (T score of -2.5 or worse) these are indicators she is a surgical candidate and guidelines do recommend parathyroi dectomy in these cases. In her case she has T score of -2.9 of right hip and T score of -2.7 of left hip. Send for CT-parathy roid scan for localizati on. Postmenopa usal osteoporosis 980935485 M81.0 She has finding of aggressive hyperparat hyroidism- due to this finding she should consider undergoing parathyroi dectomy-re ferral to ENT made and will discuss prolia injections following parathyroi dectomy- will need to d/c cinacalcet due to risk for hypocalcem ia in combinatio n with prolia injections . Hypothyroidism 78223018 E03.9 TSH and FT4 in ideal range- continue on LT4 100 mcg daily. She was reminded to take her levothyrox ine on empty stomach with glass of water and wait one hour to eat or have her coffee in morning and up to 4 hours if ever taking any heartburn or reflux medication s to help optimize absorption . Discussed paleo like diet with restrictio n of GMOs to help with energy and to optimize absorption of vitamins and minerals and reduce inflammati on. Spent up to 26 minutes preparing to see the patient (eg, review of tests), obtaining and/or reviewing separately obtained history, performing a medically appropriat e examinatio n and evaluation , counseling and educating the patient, ordering medication s, tests, along with documentin g clinical informatio n in the electronic health record, independen tly interpreti ng results and communicat ing results to the patient. RTC in 3-4 months. Patient was provided a handwritte n lab order which contains our fax number. If she chooses to go outside of the [facility] system to obtain labwork she was advised to provide our fax number and my informatio n to the lab she will be obtaining labwork from in order to have her labs properly forwarded over for me to review so there is no loss of follow up due to use of outside network. She was also advised to contact our clinic informing us that she has completed her labwork so we are aware we will need to reach out to the appropriat e laboratory to request her results be forwarded to us so I might have the ability to review and make further medical decision making in her case. She voiced understand ing. Health Concerns Section Related Observation LastModified by Organization Detai ls LastModified Time None Recorded Concern Status LastModified by Organization Details LastModified Time None Recorded Advance Directives Directive None Recorded Payers Encounter Date Sequence Insurance Name Policy Number Policy Young Covered Member ID Young Member ID Guarantor Name 04/26/2022 1 [facility] (MEDICARE REPLACEMENT/A DVANTAGE - HMO) [id number] Freida [place] [id number] Freida [place] Notes Date Note Type Note Provider Name and Address Organization Details Recorded Time 3 text/html 72 yo female comes in for follow up in management of hypothyroidism, primary hyperparathyroidism (calcium controlled on cinacalcet) and new finding of osteoporosis. last seen in November at that time we continued LT4 100 mcg daily bone density from 02/28/22:T score of -2.7 of left femoral neckT score of -2.9 of right femoral neckT score of -1.5 of LS She did see Dr. Pride over [address] Siddiqi last year- surgery was not really deemed necessary. She has been on the cinacalcet 30 mg daily for hypercalcemia. She just started the cinacalcet close to 2.5 month ago and calcium dropped from 11.3 mg/dl down to 9.4 mg/dL. She is tolerating the cincalcet well. labs from 02/17/22:FT3 of 2.8 pg/MLPTH 117.7 pg/mLCr normalglucose 90 mg/dLcalcium 9.4 mg/dLTSH of 0.967 uIU/lFT4 of 1.39 ng/mLvit D of 64.7 ng/mLALT 47 U/L Christen Deluna MD [address] [facility], [facility] [address], [place], [address], [place] [facility] [place] [employer] 04/26/2022 14:37:42 OBGyn Episode No OBEpisode recorded.
--- OUTSIDE RECORDS SUMMARY | 2024-04-22 12:21 | XMS_ITS | Encounter Summary ---
Author Organization [facility] Address [address] [place] [address] Care Team Providers Care Au Pair Name Role Phone Javed Chaudhary MD Primary Care Provider [phone] Lion Crane DO Primary Care Provider [phone] Vladimir Apple MD Primary Care Provider [phone] Eric Mills MD Unavailable [phone] Encounter Details Date Type Department Care Team (Late st Contact Info) Description 05/23/2016 Orders Only [facility] Provider, MD Cristopher [address] [place] [address] Social History Tobacco Use Types Packs/Day Years Used Date Smoking Tobacco: Never Alcohol Use Standard Drinks/Week Comments Yes 0 (1 standard drink = 0.6 oz pur e alcohol) Comments Unknown Sex and Gender Information Value Date Recorded Sex Assigned at Not on file 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[employer] Gender Identity Not on file Sexual Orientation Not on file documented as of this encounter Plan of Treatment Upcoming Encounters Date Type Department Care Team (Late st Contact Info) Description 05/16/2024 10:50 AM CDT Hospital Encounter [facility] Operating [facility] [address] [place] [address] Johann Becker MD [address] [place] [address] 05/16/2024 10:50 AM CDT - 05/16/2024 1:05 PM CDT Surgery [facility] Operating [facility] [address] [place] [address] Johann Becker MD [address] [place] [address] PARATHYROIDECTOMY Scheduled Procedures Name Priority Associated Diagnoses Date/Ti me PARATHYROIDECTOMY Hyperparathyroidism 05/16/2024 10:50 AM CDT EXPLORATION PARATHYROID Hyperparathyroidism 05/16/2024 10:50 AM CDT documented as of this encounter Procedures Procedure Name Priority Date/Time Associated Diagnosis Comments CARDIOLOGY REPORT 05/23/2016 documented in this encounter Results * CARDIOLOGY REPORT (05/23/2016) Anatomical Region Laterality Modality Other Narrative 05/23/2016 Ordered by an unspecified provider. us Historical Provider [facility] Final Result documented in this encounter Visit Diagnoses Not on filedocumented in this encounter Care Teams Au Pair Relationship Specialty Start Date End Date Javed Chaudhary MD [address] [place] [address] PCP - General 05/12/16 07/16/18 Lion Crane DO [address] [place] [address] PCP - General Internal Medicine 07/17/18 11/26/22 Vladimir Apple MD [address] [place] [address] PCP - General Family Practice 11/27/22 Eric Mills MD [address] [facility] [address] [place] [address] Referring Physician Internal Medicine 03/17/24 documented as of this encounter
--- OUTSIDE RECORDS SUMMARY | 2024-04-22 12:21 | XMS_ITS | Clinical Summary ---
Author Organization [facility] Address [address] [place] [address] Care Team Providers Care Hair Spinner Name Role Phone Vladimir Apple MD Primary Care Provider [phone] Erci Mills MD Unavailable [phone] Allergies No known active allergies Medications cholecalciferol (VITAMIN D3) 2,000 unit tablet take 1 tablet by Oral route every day 0 0 10/01/19 14 Active Additional Information Patient taking differently: 2,500 Units Daily, Reported on 04/17/2024 latanoprost (XALATAN) 0.005 % ophthalmic solution instill 1 drop by ophthalmic route every day into affected eye(s) in the evening 0 0 06/01/19 17 Active metoprolol XL (TOPROL-XL) 50 mg 24 hr tablet take 1 tablet by oral route every day 90 3 10/01/19 14 Active coenzyme Q10 100 mg capsule Take 1 capsule (100 mg total) by mouth daily Active amLODIPine (NORVASC) 10 mg tabletIndication s:Benign essential HTN TAKE 1 TABLET BY MOUTH EVERY DAY 90 tablet 1 03/24/19 22 Active levothyroxine (SYNTHROID) 100 mcg tablet Take 1 tablet (100 mcg total) by mouth every morning 11/22/19 23 Active cinacalcet (SENSIPAR) 30 mg tablet Take 1 tablet (30 mg total) by mouth daily 1/2 tab daily 10/24/19 23 Active atorvastatin (LIPITOR) 40 mg tablet Take 1 tablet (40 mg total) by mouth daily 30 tablet 11 12/15/19 23 Active aspirin 81 mg enteric coated tablet Take 1 tablet (81 mg total) by mouth daily 30 tablet 11 12/15/19 23 Active lisinopriL (PRINIVIL,ZESTRI L) 40 mg tabletIndication s:Essential hypertension Take 1 tablet (40 mg total) by mouth daily 30 tablet 11 08/01/19 24 Active spironolactone-h ydroCHLOROthiazi de (ALDACTAZIDE) 25-25 mg per tabletIndication s:Primary hypertension TAKE 1 TABLET BY MOUTH EVERY DAY 90 tablet 3 08/20/19 24 Active multivitamin tablet Take 1 tablet by mouth daily Active acetaminophen (TYLENOL) 500 mg tablet Take 1 tablet (500 mg total) by mouth every 4 (four) hours as needed Active omega-3 fatty acids-vitamin E (FISH OIL) 1,000 mg capsule take 1 by Oral route every day 0 0 10/01/19 14 025 Discontin ued(Dupli shabnam order) riboflavin, vitamin B2, 400 mg tablet Take by mouth 025 Discontin ued(Thera py completed ) Active Problems Problem Noted Date Diagnosed Date Hyperparathyroidism 04/17/2024 Nonrheumatic aortic (valve) insufficiency 2017 Aneurysm, ascending aorta 07/23/2017 Essential hypertension 07/23/2017 Hypercholesteremia 07/23/2017 Myalgia 07/23/2017 Encounters Date Type Department Care Team Description 04/17/2024 1:00 PM MANAGER IMAGE Office Visit [facility] Surgery [address] [place] [address] [address] [place] [phone] Johann Becker MD Hyperparathyroidism 04/17/2024 10:08 AM MANAGER IMAGE - 04/17/2024 11:59 PM MANAGER IMAGE Hospital Encounter [facility] [address] [place] [address] Hyperparathyroidism Discharge Disposition: Discharge to home or self care 03/25/2024 Orders Only [facility] Surgery [address] [place] [phone] Johann Becker MD Hyperparathyroidism (Primary Dx) from Last 3 Months Surgical History Surgery Date Site/Laterality Comments CATARACT EXTRACTION BIOPSY parathyroid gland Medical History Medical History Date Comments Hx Other Medical htn, glaucoma, hypothyroid, cataracts, hld, AI, ro; Comments: [facility] 09/30/2013 - Osteoporosis 2023 Glaucoma Hypertension Leaky heart valve Thyroid nodule Hyperparathyroidism Family History Medical History Relation Name Comments [...] on file Legal Sex Female 6:52 PM MANAGER IMAGE Gender Identity Not on file Sexual Orientation Not on file Obstetrics History Last Filed Vital Signs Vital Sign Reading Time Taken Comments Blood Pressure 113/72 04/17/2024 12:43 PM MANAGER IMAGE Pulse 56 04/17/2024 12:43 PM MANAGER IMAGE Temperature 36.3 C (97.3 F) 04/17/2024 12:43 PM MANAGER IMAGE Respiratory Rate 16 04/17/2024 12:43 PM MANAGER IMAGE Oxygen Saturation 89% 04/17/2024 12:43 PM MANAGER IMAGE Inhaled Oxygen Concentration - - Weight 63.5 kg (140 lb) 04/17/2024 12:43 PM MANAGER IMAGE Height 160 cm (5' 3 ) 04/17/2024 12:43 PM MANAGER IMAGE Body Mass Index 24.8 04/17/2024 12:43 PM MANAGER IMAGE Plan of Treatment Upcoming Encounters Date Type Department Care Team (Late st Contact Info) Description 05/16/2024 10:50 AM CDT Hospital Encounter [facility] [address] [place] [address] [place] [address] [place] [address] 05/16/2024 10:50 AM CDT - 05/16/2024 1:05 PM CDT Surgery [facility] [address] [place] [address] Johann Becker MD [address] [place] [address] [phone] (Work) PARATHYROIDECTOMY Scheduled Procedures Name Priority Associated Diagnoses Date/Ti me PARATHYROIDECTOMY Hyperparathyroidism 05/16/2024 10:50 AM CDT EXPLORATION PARATHYROID Hyperparathyroidism 05/16/2024 10:50 AM CDT Health Maintenance Due Date Last Done Comments [...] 10/11/2022 Pneumococcal vaccine 65+ Completed 10/18/2019, 12/13 Procedures Procedure Name Priority Date/Time Associated Diagnosis Comments US SOFT TISSUE NECK Schedule Routine, Read Routine (OP Routine) 04/17/2024 10:39 AM MANAGER IMAGE Hyperparathyroidis m from Last 3 Months Results * US Soft Tissue Neck (04/17/2024 10:39 AM MANAGER IMAGE) Anatomical Region Laterality Modality Head and Neck N/A Ultrasound 04/17/2024 10:5 2 AM MANAGER IMAGE Impressions 04/17/2024 11:09 AM MANAGER IMAGE 1. Hypoechoic nodule deep to the superior aspect of the left remnant thyroid, consistent with parathyroid adenoma. 2. Atrophic thyroid gland, in keeping with history of previous GRUBER therapy. Dictated by: Kurtis Engel M.D. The radiology attending physician has personally reviewed this study, and had reviewed and/or edited this written report and agrees with it. Electronically signed by: Joann Villanueva M.D. Narrative 04/17/2024 11:09 AM MANAGER IMAGE EXAMINATION: US SOFT TISSUE NECK HISTORY: 74-year-old with history of hyperthyroidism status post remote GRUBER therapy () now on synthroid. Elevated PTH and calcium. COMPARISON: None. FINDINGS: Atrophic thyroid gland measuring 2.2 x 0.5 x 0.4 cm on the right and 2.0 x 0.6 x 0.5 cm. Isthmus measures 1 mm. Hypoechoic nodule deep to the superior aspect of the left remnant thyroid measuring 1.2 x 1.0 x 0.4 cm; there is suggestion of a polar vessel. Procedure Note Joann Villanueva MD - 04/17/2024 EXAMINATION: US SOFT TISSUE NECK HISTORY: 74-year-old with history of hyperthyroidism status post remote GRUBER therapy () now on synthroid. Elevated PTH and calcium. COMPARISON: None. FINDINGS: Atrophic thyroid gland measuring 2.2 x 0.5 x 0.4 cm on the right and 2.0 x 0.6 x 0.5 cm. Isthmus measures 1 mm. Hypoechoic nodule deep to the superior aspect of the left remnant thyroid measuring 1.2 x 1.0 x 0.4 cm; there is suggestion of a polar vessel. IMPRESSION: 1. Hypoechoic nodule deep to the superior aspect of the left remnant thyroid, consistent with parathyroid adenoma. 2. Atrophic thyroid gland, in keeping with history of previous GRUBER therapy. Dictated by: Kurtis Engel M.D. The radiology attending physician has personally reviewed this study, and had reviewed and/or edited this written report and agrees with it. Electronically signed by: Joann Villanueva M.D. Johann Becker MD [facility] Final Result from Last 3 Months Insurance [employer] CHOICE MEDICARE PPO HU[employer] MEDICARE HMO Care Teams Hair Spinner Relationship Specialty Start Date End Date Vladimir Apple MD PCP - General Family Practice 11/27/22 Eric Mills MD [address] [place] [address] Referring Physician Internal Medicine 03/17/24
--- OUTSIDE RECORDS SUMMARY | 2024-04-22 12:21 | XMS_ITS | Clinical Summary ---
Author Organization [facility] [employer] Address [address] [facility] [place] [address] Care Team Providers Care Unhairing Inspector Name Role Phone Vladimir Apple MD Primary Care Provider [phone] Source Comments [facility] [employer],non-owned Affiliates and Associated Physician Practices is amultiple site organization consisting of ambulatory clinics and hospital sitesin [place], [place], [place] and [place]. This disclosure is being madepursuant to the Care Everywhere program and may not contain all information available regarding this patient. Last updated 17.[facility] [employer] Allergies No known active allergies Medications * [...] (one) tablet by mouth once daily Active [place]-3 Fatty Acids (fish oil) 500 MG capsule [...] Last Done Comments BONE DENSITY TESTING 1950 COLON MONITORING 1950 COLONOSCOPY - COLON CA SCREENING 1950 CT COLONOGRAPHY - COLON CA SCREENING 1950 FIT - COLON CA SCREENING 1950 FLEX SIG - COLON CA SCREENING 1950 MAMMOGRAM 1950 HEPATITIS C SCREENING 03/25/1968 ZOSTER VACCINE (3 of 3) 04/10/2020 02/14/2020, 12/07 COVID-19 VACCINE ( season) 2023 11/28/2022, 05/23/2022, 12/15/2020, Additional history exists INFLUENZA VACCINE (#1) 2023 , 10/05/2021, 10/22/2020, Additional history exists DEPRESSION SCREENING 02/13/2024 MEDICARE AWV CALENDAR YEAR 2024 COLOGUARD (AGES 45-75) - COLON CA SCREENING 12/22/2024 12/22/2021 Colorectal Cancer Screening 12/22/2024 Respiratory Syncytial Virus (RSV) Vaccine Pt: or [...] age to complete this topic Care Teams Unhairing Inspector Relationship Specialty Start Date End Date Vladimir Apple MD [address] [place] [phone] PCP - General Family Medicine 07/25/23
--- OUTSIDE RECORDS SUMMARY | 2024-04-22 12:21 | XMS_ITS | Referral Summary ---
Author Organization [facility] Address [address] [place] [address] Care Team Providers Care Log Truck Driver Name Role Phone Vladimir Apple MD Primary Care Provider [phone] Eric Mills MD Unavailable Encounters Date Type Department Care Team Description 04/17/2024 1:00 PM GREEN BUILDING ENERGY ENGINEER Office Visit [facility] Surgery [facility] [place] [address] [place] [address] Johann Becker MD Hyperparathyroidism 04/17/2024 10:08 AM GREEN BUILDING ENERGY ENGINEER - 04/17/2024 11:59 PM GREEN BUILDING ENERGY ENGINEER Hospital Encounter [facility] [address] [place] [address] Hyperparathyroidism Discharge Disposition: Discharge to home or self care 03/25/2024 Orders Only [facility] Surgery [address] [place] [phone] Johann Becker MD Hyperparathyroidism (Primary Dx) from Last 3 Months Allergies No known active allergies Medications cholecalciferol [...] on file Legal Sex Female 6:52 PM GREEN BUILDING ENERGY ENGINEER Gender Identity Not on file Sexual Orientation Not on file Last Filed Vital Signs Vital Sign Reading Time Taken Comments Blood Pressure 113/72 04/17/2024 12:43 PM GREEN BUILDING ENERGY ENGINEER Pulse 56 04/17/2024 12:43 PM GREEN BUILDING ENERGY ENGINEER Temperature 36.3 C (97.3 F) 04/17/2024 12:43 PM GREEN BUILDING ENERGY ENGINEER Respiratory Rate 16 04/17/2024 12:43 PM GREEN BUILDING ENERGY ENGINEER Oxygen Saturation 89% 04/17/2024 12:43 PM GREEN BUILDING ENERGY ENGINEER Inhaled Oxygen Concentration - - Weight 63.5 kg (140 lb) 04/17/2024 12:43 PM GREEN BUILDING ENERGY ENGINEER Height 160 cm (5' 3 ) 04/17/2024 12:43 PM GREEN BUILDING ENERGY ENGINEER Body Mass Index 24.8 04/17/2024 12:43 PM GREEN BUILDING ENERGY ENGINEER Plan of Treatment Upcoming Encounters Date Type Department Care Team (Late st Contact Info) Description 05/16/2024 10:50 AM CDT Hospital Encounter [facility] [address] [place] [address] Johann Becker MD [address] [place] [address] 05/16/2024 10:50 AM CDT - 05/16/2024 1:05 PM CDT Surgery [facility] ([facility]) [address] [place] [address] Johann Becker MD [address] [place] [address] PARATHYROIDECTOMY Scheduled Procedures Name Priority Associated Diagnoses Date/Ti me PARATHYROIDECTOMY Hyperparathyroidism 05/16/2024 10:50 AM CDT EXPLORATION PARATHYROID Hyperparathyroidism 05/16/2024 10:50 AM CDT Procedures Procedure Name Priority Date/Time Associated Diagnosis Comments US SOFT TISSUE NECK Schedule Routine, Read Routine (OP Routine) 04/17/2024 10:39 AM GREEN BUILDING ENERGY ENGINEER Hyperparathyroidis m from Last 3 Months Results * US Soft Tissue Neck (04/17/2024 10:39 AM GREEN BUILDING ENERGY ENGINEER) Anatomical Region Laterality Modality Head and Neck N/A Ultrasound 04/17/2024 10:5 2 AM GREEN BUILDING ENERGY ENGINEER Impressions 04/17/2024 11:09 AM GREEN BUILDING ENERGY ENGINEER 1. Hypoechoic nodule deep to the superior [...] Joann Villanueva M.D. Narrative 04/17/2024 11:09 AM GREEN BUILDING ENERGY ENGINEER EXAMINATION: US SOFT TISSUE NECK HISTORY: 74-year-old [...] by: Joann Villanueva M.D. Johann Becker MD IMG US PROCEDURES Final Result from Last 3 Months Insurance [employer] MEDICARE HMO Care Teams Log Truck Driver Relationship Specialty Start Date End Date Vladimir Apple MD PCP - General Family Practice 11/27/22 Eric Mills MD [address] [place] [address] Referring Physician Internal Medicine 03/17/24
--- OUTSIDE RECORDS SUMMARY | 2024-04-22 12:21 | XMS_ITS | Patient Health Summary ---
Author Organization [facility] Address [address] [facility] [place] [address] Care Team Providers Care Duct Installer Name Role Phone Vladimir Apple MD Primary Care Provider [phone] Note from [facility],non-owned Affiliates and Associated Physician Practices is amultiple site organization consisting of ambulatory clinics and hospital sitesin [place], [place], [place] and [place]. This disclosure is being madepursuant to the Care Everywhere program and may not contain all information available regarding this patient. Last updated 17.[facility] Allergies No known active allergies Medications * [...] (one) tablet by mouth once daily * [place]-3 Fatty Acids (fish oil) 500 MG capsule [...] 22.73 07/25/2023 2:39 PM CDT Care Teams Duct Installer Relationship Specialty Start Date End Date Vladimir Apple MD [address] [place] [address] PCP - General Family Medicine 07/25/23
== END 2024-04-22 10:49 | disposition home or self-care (01) ==
PROVIDERS: PCP Family Medicine; Visit Provider Internal Medicine
DX: M81.0 Age-related osteoporosis without current pathological fracture (principal); M85.88 Other specified disorders of bone density and structure, other site; M85.852 Other specified disorders of bone density and structure, left thigh; M85.851 Other specified disorders of bone density and structure, right thigh
CPT/HCPCS: 77080

== ENCOUNTER 2024-06-14 09:45 | Outpatient (CLI) | payer MEDICARE, SELFPAY ==
[2024-06-14 11:04] LABS: Parathyroid Intact 29.6 pg/mL (14.5-75.2)
[2024-06-14 11:05] LABS: Alanine Aminotransferase 32 U/L (6-35); Alkaline Phosphatase 73 U/L (38-126); Anion Gap 12 mmol/L (4-12); Aspartate Amino Transferase 29 U/L (14-36); Bilirubin,Total 0.6 mg/dL (0.2-1.3); Blood Urea Nitrogen 24 mg/dL (7-17); Calcium 10.3 mg/dL (8.4-10.2); Carbon Dioxide 24 mmol/L (22-30); Chloride 100 mmol/L (98-107); Estimated Glomerular Filt Rate 47; Glucose 88 mg/dL (65-110); Magnesium 1.6 mg/dL (1.6-2.3); Phosphorus 3.7 mg/dL (2.5-4.5); Sodium 136 mmol/L (137-145)
[2024-06-14 11:23] LABS: Free T4 Free Thyroxine 2.01 ng/dL (0.78-2.19); Vitamin D 25 Hydroxy 64.7 ng/mL
[2024-06-14 11:36] LABS: Thyroid Stimulating Hormone 0.186 uIU/mL (0.465-4.680)
--- OUTSIDE RECORDS SUMMARY | 2024-06-14 16:11 | XMS_ITS | Encounter Summary ---
Author Organization [facility] Address [address] [place] [address] Phone Care Team Providers Care Business Librarian Name Role Phone Vladimir Apple MD Primary Care Provider [phone] Eric Mills MD Unavailable [phone] Encounter Details Date Type Department Care Team (Late st Contact Info) Description 06/03/2024 Results Follow-Up [facility] Surgery [address] [facility] [address] [place] [address] Johann Becker MD [address] [place] [phone] Social History Tobacco Use Types Packs/Day Years Used Date Smoking Tobacco: Never Smokeless Tobacco: Never Alcohol Use Standard Drinks/Week Comments Yes 0 (1 standard drink = 0.6 oz pur e alcohol) AUDIT-C Answer Date Recorded Q1: How often do you have a drink containing alc ohol? Monthly or less 05/16/2024 Q2: How many drinks containi ng alcohol do you have on a typical day when you are drinking? 1 or 2 05/16/2024 Q3: How often do you have si x or more drinks on one occasion? Never 05/16/2024 Personal Safety Answer Date Recorded Have you ever been in or are you currently in a harmful physical or emotional relationship or is someone making you feel afraid or unsafe? Denies 05/16/2024 Comments Unknown Sex and Gender Information Value Date Recorded Sex Assigned at Not on file Legal Sex Female 6:52 PM COMPONENT ENGINEER Gender Identity Not on file Sexual Orientation Not on file documented as of this encounter Plan of Treatment Not on file documented as of this encounter Visit Diagnoses Not on filedocumented in this encounter Care Teams Business Librarian Relationship Specialty Start Date End Date Vladimir Apple MD PCP - General Family Practice 11/27/22 Eric Mills MD [address] [place] [address] Referring Physician Internal Medicine 03/17/24 documented as of this encounter
--- OUTSIDE RECORDS SUMMARY | 2024-06-14 16:11 | XMS_ITS | Clinical Summary ---
Author Organization [facility] Address [address] [place] [address] Care Team Providers Care Splunk Architect Name Role Phone Vladimir Apple MD Primary Care Provider [phone] Eric Mills MD Unavailable [phone] Allergies No known active allergies Medications cholecalciferol (VITAMIN D3) 2,000 unit tablet take 1 tablet by Oral route every day 0 0 10/01/19 14 Active latanoprost (XALATAN) 0.005 % ophthalmic solution instill 1 drop by ophthalmic route every day into affected eye(s) in the evening 0 0 06/01/19 17 Active metoprolol XL (TOPROL-XL) 50 mg 24 hr tablet take 1 tablet by oral route every day 90 3 10/01/19 14 Active levothyroxine (SYNTHROID) 100 mcg tablet Take 1 tablet (100 mcg total) by mouth every morning Except none on Sundays11/22/19 23 Active atorvastatin (LIPITOR) 40 mg tablet [...] multivitamin tablet Take 1 tablet by mouth every morning Active acetaminophen (TYLENOL) 500 mg tablet Take 1 tablet (500 mg total) by mouth every 4 (four) hours as needed for pain Active docosahexaenoic acid/epa (FISH OIL ORAL) Take by mouth every morning Active calcium carbonate (OS-LEN) 1,250 mg (500 mg elemental) tabletIndication s:hypocalcemia Take 1 tablet (1,250 mg total) by mouth every 8 (eight) hours 90 tablet 1 05/18/19 25 025 Active oxyCODONE (ROXICODONE) 5 mg immediate release tabletIndication s:Pain Take 1 tablet (5 mg total) by mouth every 4 (four) hours as needed for pain for up to 6 doses 6 tablet 05/18/19 25 Active amLODIPine (NORVASC) 10 mg tabletIndication s:Benign essential HTN TAKE 1 TABLET BY MOUTH EVERY DAY 90 tablet 1 03/24/19 22 025 Discontinu ed(Therapy completed) cinacalcet (SENSIPAR) 30 mg tablet Take 15 mg by mouth nightly /2 tab daily 10/24/19 23 025 Discontinu ed(No longer taking - Do not display on AVS) Active Problems Problem Noted Date Diagnosed Date HPTH (hyperparathyroidism) 05/16/2024 Hyperparathyroidism 04/17/2024 Nonrheumatic aortic (valve) insufficiency 2017 Aneurysm, ascending aorta 07/23/2017 Essential hypertension 07/23/2017 Hypercholesteremia 07/23/2017 Myalgia 07/23/2017 Encounters Date Type Department Care Team Description 06/11/2024 2:00 PM CDT Office Visit [facility] Cardiology [address] [facility] [address] [place] [address] Prosper Del Angel MD Aneurysm of ascending aorta without rupture (Primary Dx); Nonrheumatic aortic (valve) insufficiency; Essential hypertension; Hypercholesteremia 06/05/2024 Telephone [facility] Surgery [address] [place] [address] Floor 8 [place] [address] Johann Becker MD 06/04/2024 Telephone [facility] Surgery [address] [place] [address] 5 [place] [address] Mami Ngo RN 06/04/2024 Orders Only [facility] Surgery [address] [place] [phone] Mami Ngo RN Hyperparathyroidism (Primary Dx) 06/03/2024 Results Follow-Up [facility] Surgery [address] [place] [phone] Johann Becker MD 06/02/2024 4:15 PM CDT Lab [facility] - Lab Collection [address] [place] [id number] Hyperparathyroidism 06/02/2024 3:00 PM CDT Office Visit [facility] Surgery [address] [place] [phone] Johann Becker MD Hyperparathyroidism (Primary Dx) 05/22/2024 Results Follow-Up [facility] Oncology [address] [place] [phone] Johann Becker MD 05/16/2024 10:50 AM CDT - 05/16/2024 1:05 PM CDT Surgery [facility] [address] [place] [address] Johann Becker MD Neck exploration, 3.5 gland parathyroidectomy 05/16/2024 10:47 AM CDT Anesthesia Event [facility] ([facility]) [address] [place] [phone] Shaan Roper MD DDS Gardner, Kari Elizabeth, NP 05/16/2024 7:53 AM CDT - 05/17/2024 5:05 PM CDT Hospital Encounter [address] [phone] Johann Becker MD Hyperparathyroidism Discharge Disposition: Discharge to home or self care 05/15/2024 Telephone [facility] Surgery [address] [place] [phone] Mami Ngo RN 05/15/2024 Telephone [facility] Surgery [address] [facility] Floor 8 [place] [phone] Johann Becker MD Medical Question/Miscellaneous 04/24/2024 8:15 AM CDT Ancillary Procedure [facility] Cardiology [address] [place] [address] Nonrheumatic aortic (valve) insufficiency 04/17/2024 1:00 PM VALVE FITTER Office Visit [facility] Surgery [facility] Floor 5 [place] [address] Johann Becker MD Hyperparathyroidism 04/17/2024 10:08 AM VALVE FITTER - 04/17/2024 11:59 PM VALVE FITTER Hospital Encounter [facility] Radiology [facility]) [address] [place] [address] Hyperparathyroidism Discharge Disposition: Discharge to home or self care 03/25/2024 Orders Only [facility] Surgery [facility] Floor 5 [place] [address] Johann Becker MD Hyperparathyroidism (Primary Dx) from Last 3 Months Surgical History Surgery Date Site/Laterality Comments CATARACT EXTRACTION Bilateral unsure when BIOPSY 02/12/2023 - 02/12/2024 parathyroid gland TONSILLECTOMY 02/13/1956 - 02/11/1957 Medical History Medical History Date Comments Hx Other Medical htn, glaucoma, hypothyroid, cataracts, hld, AI, ro; Comments: [facility] 09/30/2013 - Osteoporosis 2023 Glaucoma Hypertension Leaky heart valve Thyroid nodule Hyperparathyroidism Family History Medical History Relation Name Comments Heart disease Father Carlos Pfeiffer took some type of heart med Hypertension Father Carlos Pfeiffer Arthritis Mother Becka Pfeiffer Rheum arthritis Mother Becka Pfeiffer Heart disease Sister Meagan briggs Anesthesia problems Neg Hx Relation Name Status Comments Father Carlos Pfeiffer Exp age 90 intr acranial bleed.after a fall Mother Becka Pfeiffer Rheumatoid arth ritis affected internal organs. age [...] on file Legal Sex Female 6:52 PM VALVE FITTER Gender Identity Not on file Sexual Orientation Not on file Obstetrics History Last Filed Vital Signs Vital Sign Reading Time Taken Comments Blood Pressure 94/60 06/11/2024 2:00 PM CDT Pulse 61 06/11/2024 2:00 PM CDT Temperature 36.3 C (97.3 F) 06/02/2024 3:32 PM CDT Respiratory Rate 18 06/02/2024 3:32 PM CDT Oxygen Saturation 95% 06/11/2024 2:00 PM CDT Inhaled Oxygen Concentration - - Weight 64 kg (141 lb) 06/11/2024 2:00 PM CDT Height 170.2 cm (5' 7 ) 06/11/2024 2:00 PM CDT Body Mass Index 22.08 06/11/2024 2:00 PM CDT Plan of Treatment Health Maintenance Due Date Last Done Comments Breast Cancer Screening-Mammogram 1950 Colon Cancer Screening-Colonoscopy 1950 Depression Screening 1950 Hepatitis C Screening 1950 Osteoporosis Screening-Bone Density Scan 1950 Hepatitis B Screening 1968 Well Visit 65+ 2015 Zoster Vaccine (3 of 3) 04/10/2020 02/14/2020, 12/07 Influenza Vaccine (Season Ended) 2024 10/18/2019, 11/11/2018, 11/25/2017, Additional history exists Fall Risk Assessment 05/17/2025 05/17/2024 DTaP/Tdap/Td Vaccine (2 - Td or Tdap) 10/11/2032 10/11/2022 Pneumococcal vaccine 65+ Completed 10/18/2019, 12/13 Medical Devices Explanted Type Area Supervisor Maintenance And Custodians Device Identifier Shelf Expiration Date Model / Serial / Lot Parathyroid Tissue - Rlp Explanted:Qty: 1 on 05/16/2024 by Johann Becker MD at [facility] Right: Neck Other 05/30/2024 N/A / / Parathyroid Tissue - Lup Explanted:Qty: 1 on 05/16/2024 by Johann Becker MD at [facility] Left: Neck Other 05/30/2024 N/A / / Procedures Procedure Name Priority Date/Time Associated Diagnosis Comments POCT LIPID PANEL Routine 06/11/2024 2:02 PM CDT Hypercholesteremia EGFR Routine 06/02/2024 4:12 PM CDT Hyperparathyroidis m PTH Routine 06/02/2024 4:12 PM CDT Hyperparathyroidis m BASIC METABOLIC PANEL Routine 06/02/2024 4:12 PM CDT Hyperparathyroidis m CALCIUM, IONIZED Routine 05/17/2024 3:57 AM CDT PTH Timed 05/17/2024 3:57 AM CDT CALCIUM LEVEL Routine 05/16/2024 7:21 PM CDT PTH Timed 05/16/2024 7:21 PM CDT CALCIUM, IONIZED Timed 05/16/2024 4:24 PM CDT PTH Timed 05/16/2024 4:24 PM CDT PTH Routine 05/16/2024 12:00 PM CDT PTH Routine 05/16/2024 11:54 AM CDT PTH Routine 05/16/2024 11:51 AM CDT SURGICAL PATHOLOGY Routine 05/16/2024 11:48 AM CDT Hyperparathyroidis m CT AN PROCEDURE PLACEHOLDER Routine 05/16/2024 11:[address] AN ELECTIVE ENDOTRACHEAL AIRWAY Routine 05/16/2024 11:46 AM CDT PARATHYROIDECTOMY 05/16/2024 10:50 AM CDT Hyperparathyroidis m Special Needs IntraOp PTH Monitoring and NIMS TRANSTHORACIC ECHO (TTE) COMPLETE W DOPPLER/CF WO CONTRAST Routine 04/24/2024 9:02 AM CDT Nonrheumatic aortic (valve) insufficiency US SOFT TISSUE NECK Schedule Routine, Read Routine (OP Routine) 04/17/2024 10:39 AM VALVE FITTER Hyperparathyroidis m from Last 3 Months Results * POCT lipid panel (06/11/2024 2:02 PM CDT) Pathologist [facility] Cholesterol, POC 115 <200 MG/DL HDL, POC 56 >=40 mg/dL Triglycerides, POC 99 <=149 mg/dL LDL Cholesterol POC 40 <=129 mg/dL Chol/HDL Ratio, POC 0.7 NONE Non-HDL Cholesterol, POC 59 NONE mg/dL Cholesterol Total, POC 115 30 - 199 mg/dL Capillary blood 06/11/2024 2 :02 PM CDT [facility] Rossana Del Angel MD POINT OF CARE TEST NATALI HOWARD Final Result * (ABNORMAL) eGFR (06/02/2024 4:12 PM CDT) Pathologist [facility] eGFR 39(L) >=60 mL/min/1. 73 m2 Comment: Interpretive Data Reference Interval Normal >/= 90 mL/min/1.73m2 Mildly decreased* 60 - 89 mL/min/1.73m2 Mildly to moderately decreased 45 - 59 mL/min/1.73m2 Moderately to severely decreased 30 - 44 mL/min/1.73m2 Severely decreased 15 - 29 mL/min/1.73m2 Kidney Failure < 15 mL/min/1.73m2 *Relative to young adult level Estimated glomerular filtration rate is determined by the 2020 CKD-EPI equation recommended by the National Kidney Foundation (A Unifying Approach to GFR Estimation: Recommendations of the NKF-ASK Task Force on Reassessing the Inclusion of Race in Diagnosing Kidney Disease, JASN 2020). The CKD-EPI equation should not be used for patients with unstable renal function and has not been validated in children and those over 70. Current interpretive data was last reviewed 2020. Blood 06/02/2024 4:12 PM CDT 06/02/2024 4:40 PM CDT Genoveva Reynaga MD LAB BLOOD ORDERABLES Final Result Performing Organization Address [facility] Co de Phone Number [facility] Department [place] [address] * PTH (06/02/2024 4:12 PM CDT) [facility] PTH 18 15 - 65 pg/mL Blood 06/02/2024 4:12 PM CDT 06/02/2024 6:11 PM CDT Genoveva Reynaga MD LAB BLOOD ORDERABLES Final Result Performing Organization Address [facility] [[email or web address]] de Phone Number [facility] Department [place] [address] * (ABNORMAL) Basic metabolic panel (06/02/2024 4:12 PM CDT) Pathologist [facility] Sodium 136 135 - 145 mmol/L Potassium, pl 4.6 3.3 - 4.9 mmol/L [facility] Chloride 95(L) 97 - 110 mmol/L [facility] CO2 28 22 - 32 mmol/L [facility] Anion gap 13 2 - 15 mmol/L [facility] BUN 27(H) 6 - 25 mg/dL [facility] Creatinine 1.42(H) 0.60 - 1.10 mg/dL [facility] Glucose 97 70 - 199 mg/dL [facility] Comment: Interpretive Data Fasting glucose >/= 126 mg/dl is diagnostic for diabetes. Fasting is defined as no caloric intake for at least 8 hours. Fasting glucose between 100 mg/dl to 125 mg/dl is diagnostic of prediabetes. In a patient with classic symptoms of hyperglycemia or hyperglycemic crisis, a random glucose >/= 200 mg/dl is diagnostic for diabetes. In the absence of unequivocal hyperglycemia, results should be confirmed by repeat testing. The classification and Diagnosis of Diabetes Diabetes Care 2021; 46: S19-S40. Current interpretive data was last revised 2022. Calcium 11.1(H) 8.5 - 10.3 mg/dL [facility] Blood 06/02/2024 4:12 PM CDT 06/02/2024 4:32 PM CDT us Genoveva Reynaga MD LAB BLOOD ORDERABLES Final Result [facility] [place] [address] * Calcium, ionized (05/17/2024 3:57 AM CDT) Calcium, Ionized 4.89 4.50 - 5.10 mg/dL Blood 05/17/2024 3:57 AM CDT 05/17/2024 4:17 AM CDT us Johann Becker MD LAB BLOOD ORDERABLES Fi nal Result [facility] [place] [address] * (ABNORMAL) PTH (05/17/2024 3:57 AM CDT) PTH 11(L) 15 - 65 pg/mL Blood 05/17/2024 3:57 AM CDT 05/17/2024 4:31 AM CDT Johann Becker MD LAB BLOOD ORDERABLES Fi nal Result Performing Organization Address [facility] [[email or web address]] de Phone Number [facility] [place] [address] * (ABNORMAL) PTH (05/16/2024 7:21 PM CDT) PTH 14(L) 15 - 65 pg/mL Blood 05/16/2024 7:21 PM CDT 05/16/2024 8:21 PM CDT Johann Becker MD LAB BLOOD ORDERABLES Fi nal Result Performing Organization Address [facility] de Phone Number [facility] [place] [address] * (ABNORMAL) Calcium level (05/16/2024 7:21 PM CDT) Calcium 10.9(H) 8.5 - 10.3 mg/dL Blood 05/16/2024 7:21 PM CDT 05/16/2024 8:21 PM CDT Johann Becker MD LAB BLOOD ORDERABLES Fi nal Result Performing Organization Address [facility] [[email or web address] [place] [address] * (ABNORMAL) Calcium, ionized (05/16/2024 4:24 PM CDT) Calcium, Ionized 5.54(H) 4.50 - 5.10 mg/dL Blood 05/16/2024 4:24 PM CDT 05/16/2024 4:40 PM CDT Johann Becker MD LAB BLOOD ORDERABLES Fi nal Result Performing Organization Address [facility] Co de Phone Number [facility] [place] [address] * PTH (05/16/2024 4:24 PM CDT) PTH 19 15 - 65 pg/mL Blood 05/16/2024 4:24 PM CDT 05/16/2024 4:44 PM CDT Johann Becker MD LAB BLOOD ORDERABLES Fi nal Result Performing Organization Address [facility] de Phone Number [facility] [place] [address] * (ABNORMAL) PTH (05/16/2024 12:00 PM CDT) PTH 208(H) 15 - 65 pg/mL Comment:Intra-operative spec imen. Telephone report made to Karen Del Angel RN on 05/16/2024 12:24:57 CDT by DLB. Blood 05/16/2024 12:0 0 PM CDT 05/16/2024 12:08 PM CDT Johann Becker MD LAB BLOOD ORDERABLES Fi nal Result Performing Organization Address [facility] [[email or web address]] de Phone Number [facility] [place] [address] * (ABNORMAL) PTH (05/16/2024 11:54 AM CDT) PTH 240(H) 15 - 65 pg/mL Comment:Intra-operative spec imen. Telephone report made to Karen Del Angel RN on 05/16/2024 12:19:18 CDT by DLB. Blood 05/16/2024 11:5 4 AM CDT 05/16/2024 12:04 PM CDT Johann Becker MD LAB BLOOD ORDERABLES Fi nal Result Performing Organization Address City/[facility] Co de Phone Number [facility] Department [place] [address] * (ABNORMAL) PTH (05/16/2024 11:51 AM CDT) PTH 329(H) 15 - 65 pg/mL Comment:Intra-operative spec imen. Telephone report made to Karen Del Angel RN on 05/16/2024 12:19:18 CDT by LORENE. Blood 05/16/2024 11:5 1 AM CDT 05/16/2024 12:04 PM CDT Johann Becker MD LAB BLOOD ORDERABLES Fi nal Result Performing Organization Address [facility] Co de Phone Number [facility] [place] [address] * Surgical pathology (05/16/2024 11:48 AM CDT) Tissue (Parathyroid Gland) 05/16/2024 11:48 AM CDT Tissue specimen (specimen) (Parathyroid Gland) 05/16/2024 12:09 PM CDT Tissue specimen (specimen) (Parathyroid Gland) 05/16/2024 12:23 PM CDT Tissue specimen (specimen) (Parathyroid Gland) 05/16/2024 12:[address] [facility] - 05/22/2024 4:34 PM CDT EPIC results best viewed via link to PDF [facility] [place] [address] Note to Patients: This report may contain a detailed description of human tissue sent by a health care provider to the laboratory for pathologic evaluation. The content of this report is essential for diagnosis and may provide important critical findings. This information may be unfamiliar to patients to review without a medical professional present. It is advised that the patient review this report in the presence of a health care provider who can answer questions and explain the details. SURGICAL PATHOLOGY REPORT FINAL Patient Name: FREIDA FERNANDO Gender: F : 1950 (Age: 74) Address: [address] [place] [phone] Hospital #: [id number] Taken:05/16/2024 Received:05/16/2024 Reported: 05/22/2024 Patient Type: [facility] OP In Bed Service: Surgery Location: [place] [address] Physician(s): Salina Mcpherson M.D. Diagnosis: A. Parathyroid, left lower, parathyroidectomy (AFR1): - Hypercellular parathyroid B. Parathyroid, left upper, parathyroidectomy (BFR1): - Hypercellular parathyroid C. Parathyroid, right upper, parathyroidectomy (CFR1): - Parathyroid tissue present D. Parathyroid, right lower, parathyroidectomy (DFR1): - Parathyroid tissue present xd/05/20/2024 18:27 By this signature, I attest that the above diagnosis is based upon my personal examination of the slides(and/or other material indicated in the diagnosis). Linda Garcia MD, PhD Report Electronically Reviewed and Signed Out By Linda Garcia MD, PhD 05/22/2024 16:34:24 Intraoperative Consultation: Frozen Section Diagnosis AFR1: Left lower parathyroid - Parathyroid tissue present By Salomon Small M.D., Matt Gonzalez M.D., Ph.D., Damion Diaz MS, PA ([facility]) BFR1: Left upper parathyroid - Parathyroid tissue present By Salomon Small M.D., Matt Gonzalez M.D., Ph.D., Damion Diaz MS, PA ([facility]) CFR1: Right upper parathyroid - Parathyroid tissue present By Salomon Small M.D., Matt Gonzalez M.D., Ph.D., Damion Diaz MS, PA ([facility])CM DFR1: Right lower parathyroid - Parathyroid tissue present By Salomon Small M.D., Matt Gonzalez M.D., Ph.D., Damion Diaz MS, PA ([facility]) Gross Consultation A: Left lower parathyroid Received fresh is a piece of ruiz-pink tissue measuring 1.0 x 0.5 x 0.5 and 0.21 g, submitted in toto and labeled AFR1. By Salomon Small M.D., Matt Gonzalez M.D., Ph.D., Damion Diaz MS, PA ([facility]) B: Left upper parathyroid Received fresh is a piece of ruiz-pink tissue measuring 0.9 x 0.8 x 0.3 and 0.18 g, submitted in toto and labeled BFR1. By Salomon Small M.D., Matt Gonzalez M.D., Ph.D., Damion Diaz MS, PA ([facility]) C: Right upper parathyroid Received fresh is a piece of ruiz-pink tissue measuring 0.2 x 0.2 x 0.1 and less than 0.1 g, submitted in toto and labeled CFR1. By Salomon Small M.D., Matt Gonzalez M.D., Ph.D., Damion Diaz MS, PA ([facility]) D: Right lower parathyroid Received fresh is a piece of ruiz-pink tissue measuring 0.3 x 0.2 x 0.1 and less than 0.1 g, submitted in toto and labeled DFR1. By Salomon Small M.D., Matt Gonzalez M.D., Ph.D., Damion Diaz MS, PA ([facility]) I personally examined the relevant preparation(s) or a microscopic image of the relevant preparation(s) for the specimen(s) while the surgical procedure was still underway and rendered or confirmed the diagnosis(es) Report Electronically reviewed and Signed out by Matt Gonzalez M.D., Ph.D. (A - B - C - D) Susan Evans M.D., PhD History: The patient is a 74-year-old woman presenting with hyperparathyroidism. Operative procedure: Parathyroidectomy, parathyroid exploration. Specimen(s) Received: A: Left lower parathyroid B: Left upper parathyroid C: Right upper parathyroid D: Right lower parathyroid Gross Description: Received in four formalin jars labeled with the patient's identifiers. A. Labeled left lower parathyroid is a cassette containing a frozen section remnant. Labeled AFR1. Jar 0. B. Labeled left upper parathyroid is a cassette containing a frozen section remnant. Labeled BFR1. Jar 0. C. Labeled right upper parathyroid is a cassette containing a frozen section remnant. Labeled CFR1. Jar 0. D. Labeled right lower parathyroid is a cassette containing a frozen section remnant. Labeled DFR1. Jar 0. 05/19/2024 11:24 PA(s): Mallorie Burns MS, PA ([facility])CM By this signature, I attest that the above diagnosis is based upon my personal examination of the slides(and/or other material). Addenda/Procedures The performance characteristics of some immunohistochemical stains, fluorescence in-situ hybridization tests and immunophenotyping by flow cytometry cited in this report (if any) were determined by the Surgical Pathology and Flow Cytometry Departments at [facility] as part of an ongoing coding quality coordinator program and in compliance with federally mandated regulations drawn from the Clinical Laboratory Improvement Act of 1988 (CLIA '88). Some of these tests rely on the use of analyte specific reagents and are subject to specific labeling requirements by the US Food and Drug Administration. Such diagnostic tests may only be performed in a facility that is certified by the Department of Health and Human Services as a high complexity laboratory under CLIA '88. The FDA has determined that such clearance or approval is not necessary. This test is used for clinical purposes. It should not be regarded as investigational or for research. Nevertheless, federal rules concerning the medical use of analyte specific reagents require that the following disclaimer be attached to the report: This test was developed and its performance characteristics determined by the Surgical Pathology and Flow Cytometry Departments of [facility]. It has not been cleared or approved by the U. S. Food and Drug Administration. IMAGES AND SCANNED DOCUMENTS, IF INCLUDED, ONLY VIEWABLE IN PDF VERSION OF REPORT us Johann Becker MD LAB PATHOLOGY ORDERABLE S Final Result PATHOLOGY [facility] 3rd Floor [place], [place] [phone] * CT AN ELECTIVE ENDOTRACHEAL AIRWAY, CT AN PROCEDURE PLACEHOLDER (05/16/2024 11:46 AM CDT) Narrative Shaan Roper MD DDS - 05/16/2024 11:46 AM CDT Shaan Roper MD DDS 05/16/2024 11:59 AM Airway Patient location: OR Urgency: elective Date/time: 05/16/2024 11:00 AM Indications for airway management: anesthesia Difficult airway: no Staff: Placed by: [employer] COUNSELOR: Michelle Fakl CRNA Emergent airway documentation: Risks and benefits discussed: yes Consent obtained: yes Consent given by: patient Airway prep: Preoxygenated: yes Patient position: sniffing Spontaneous ventilation during airway: absent Sedation level during airway: GA Final airway details: Final airway type: endotracheal airway Tube type: NIM tube ETT size: 7.0 mm Cuffed: yes Technique used for successful ETT placement: video laryngoscopy Devices/Methods used in placement: stylet Insertion site: oral Blade type: Jessica Video blade type: Meyer Blade size: 3 Cormack-Lehane (video): grade I - full view of glottis Cuff volume: 6 mL Cuff inflated with: air ETT to teeth: 21 cm Placement verified by: auscultation and CO2 detection Number of attempts: 1 Ventilation between attempts: none Planned trial extubation: yes Shaan Roper MD, DDS ANESTHESIA ORDERABLES Nloa l Result * TRANSTHORACIC ECHO (TTE) COMPLETE W DOPPLER/CF WO CONTRAST (04/24/2024 9:02 AM CDT) LV EF >70 % CONS SCIMAGE Anatomical Region Laterality Modality Ultrasound 04/24/2024 8:16 AM CDT Narrative 04/24/2024 12:34 PM CDT [facility] [address], [place] [address] [address], [place] [address] P:[phone] P:[phone] Echocardiographic Report Patient Name: FREIDA FERNANDO K : 1950 Study Date: 04/24/2024 8:16:15 AM Gender: F Tech: [facility] Location: [facility] Provider: GABY BEST Height(Cm): 163 BSA: 1.7 Weight(Kg): 63.5 Heart Rate: 53 BP: 113 / 72 Quality: Good Order Provider: GABY BEST PROCEDURES: Echocardiographic Report: Transthoracic echocardiogram with complete 2D, M-Mode, and color Doppler examination. With Strain Analysis. INDICATIONS: Aortic Insufficiency. MEASUREMENTS: 2D/MM Value Range Doppler Value Range EF Mod BP 79 % [ 54 - 74 ] ARMIN Vmax 2.05 cm2 [ 2.00 - 4.00 ] EF Teich MM 78 % [ 54 - 74 ] AV Mean PG 11 mmHg Estimated EF >70 % AV Peak Jefferson 2.33 m/s [ 1.00 - 1.70 ] LVIDd 2D 4.90 cm [ 3.80 - 5.20 ] AV Peak PG 22 mmHg LVIDd MM 4.67 cm [ 3.80 - 5.20 ] AV VTI 57.99 cm LVIDs 2D 2.59 cm [ 2.20 - 3.50 ] LVOT Diam 1.95 cm [ 1.70 - 2.10 ] LVIDs MM 2.51 cm [ 2.20 - 3.50 ] LVOT Peak Jefferson 1.60 m/s [ 0.70 - 1.10 ] LVPWd 2D 0.90 cm [ 0.60 - 0.90 ] LVOT VTI 38.17 cm LVPWd MM 0.98 cm [ 0.60 - 0.90 ] MV E Peak Jefferson 0.80 m/s [ 0.60 - 1.30 ] IVSd 2D 0.91 cm [ 0.60 - 0.90 ] MV A Peak Jefferson 0.59 m/s [ 1.00 - 1.20 ] IVSd MM 1.04 cm [ 0.60 - 0.90 ] MV Mean PG 1 mmHg [ 0 - 5 ] LA Dimension 2D 3.69 cm [ 2.70 - 3.80 ] MV PHT 77 msec [ 20 - 100 ] LA Dimension MM 3.66 cm [ 2.70 - 3.80 ] MVA PHT 2.86 cm2 [ 2.00 - 4.00 ] AoR Diam 2D 4.10 cm [ 2.70 - 3.70 ] MV Decel Time 287 msec [ 104 - 258 ] AoR Diam MM 3.37 cm [ 2.70 - 3.70 ] PV Peak Jefferson 0.93 m/s [ 0.40 - 0.80 ] LA Volume Index 47 cc/m2 [ 16 - 34 ] TR Peak Jefferson 2.35 m/s [ 1.00 - 2.80 ] TR Peak PG 22 mmHg RVSP 25.00 mmHg [ 10.00 - 36.00 ] Lateral E` 0.11 m/s [ 0.10 - 0.15 ] E` 0.05 m/s E/E` 7 2D/MM Value Range Doppler Value Range - FINDINGS: Interpretation Site: Exam was interpreted at [facility]. Left Ventricle: Normal left ventricular size. Mild concentric left ventricular hypertrophy. Normal global left ventricular systolic function. Impaired diastolic relaxation Grade I. Ejection fraction is measured at 79 %. Ejection Fraction is visually estimated to be >70 %. Global Longitudinal Strain is -24 %. Right Ventricle: Normal right ventricular size. Normal right ventricular systolic function. Left Atrium: There is moderate enlargement of left atrium. Right Atrium: There is mild enlargement of right atrium. Atrial Septum: Normal atrial septum. Mitral Valve: Mild mitral valve regurgitation. Aortic Valve: No evidence of hemodynamically significant aortic stenosis by Doppler. Trileaflet aortic valve. Mild aortic valve regurgitation. Tricuspid Valve: Estimated peak RVSP is 25 mmHg. Mild tricuspid regurgitation. Pulmonic Valve: Normal appearance of the pulmonic valve. Trivial regurgitation in the pulmonic valve. Pericardium: Normal pericardium with no significant pericardial effusion. Aorta: Sinus of Valsalva is mildly dilated. Sinus of Valsalva 4.1 cm. Ascending Aorta 4.6 cm. IVC: Normal size and normal respiratory collapse consistent with normal right atrial pressure (<5 mmHg). CONCLUSIONS: Normal left ventricular size. Mild concentric left ventricular hypertrophy. Normal global left ventricular systolic function. Impaired diastolic relaxation Grade I. Ejection fraction is measured at 79 %. Ejection Fraction is visually estimated to be >70 %. Global Longitudinal Strain is -24 %. Normal right ventricular size. Normal right ventricular systolic function. There is moderate enlargement of left atrium. There is mild enlargement of right atrium. Mild mitral valve regurgitation. No evidence of hemodynamically significant aortic stenosis by Doppler. Trileaflet aortic valve. Mild aortic valve regurgitation. Mild tricuspid regurgitation. Sinus of Valsalva is mildly dilated. Sinus of Valsalva 4.1 cm. Ascending Aorta 4.6 cm. Electronically Signed By: Prosper Del Angel MD 04/24/2024 12:33:00 PM CDT Procedure Note Prosper Del Angel MD - 04/24/2024 [facility] Cardiology [address] [facility] [address] [id number] [facility] [address], [place], [place] [address] P:[phone] P:[phone] Echocardiographic Report Patient Name: FREIDA FERNANDO K : 1950 Study Date: 04/24/2024 8:16:15 AM Gender: F Tech: [facility] Location: [facility] Provider: GABY BEST Height(Cm): 163 BSA: 1.7 Weight(Kg): 63.5 Heart Rate: 53 BP: 113 / 72 Quality: Good Order Provider: GABY BEST PROCEDURES: Echocardiographic Report: Transthoracic echocardiogram with complete 2D, M-Mode, and color Dopplerexamination. With Strain Analysis. INDICATIONS: Aortic Insufficiency. MEASUREMENTS: 2D/MM Value Range Doppler ValueRange EF Mod BP 79 % [ 54 - 74 ] ARMIN Vmax 2.05cm2 [ 2.00 - 4.00 ] EF Teich MM 78 % [ 54 - 74 ] AV Mean PG 11mmHg Estimated EF >70 % AV Peak Jefferson 2.33m/s [ 1.00 - 1.70 ] LVIDd 2D 4.90 cm [ 3.80 - 5.20 ] AV Peak PG 22mmHg LVIDd MM 4.67 cm [ 3.80 - 5.20 ] AV VTI 57.99cm LVIDs 2D 2.59 cm [ 2.20 - 3.50 ] LVOT Diam 1.95 cm[ 1.70 - 2.10 ] LVIDs MM 2.51 cm [ 2.20 - 3.50 ] LVOT Peak Jefferson 1.60m/s [ 0.70 - 1.10 ] LVPWd 2D 0.90 cm [ 0.60 - 0.90 ] LVOT VTI 38.17cm LVPWd MM 0.98 cm [ 0.60 - 0.90 ] MV E Peak Jefferson 0.80m/s [ 0.60 - 1.30 ] IVSd 2D 0.91 cm [ 0.60 - 0.90 ] MV A Peak Jefferson 0.59m/s [ 1.00 - 1.20 ] IVSd MM 1.04 cm [ 0.60 - 0.90 ] MV Mean PG 1 mmHg[ 0 - 5 ] LA Dimension 2D 3.69 cm [ 2.70 - 3.80 ] MV PHT 77 msec[ 20 - 100 ] LA Dimension MM 3.66 cm [ 2.70 - 3.80 ] MVA PHT 2.86cm2 [ 2.00 - 4.00 ] AoR Diam 2D 4.10 cm [ 2.70 - 3.70 ] MV Decel Time 287msec [ 104 - 258 ] AoR Diam MM 3.37 cm [ 2.70 - 3.70 ] PV Peak Jefferson 0.93m/s [ 0.40 - 0.80 ] LA Volume Index 47 cc/m2 [ 16 - 34 ] TR Peak Jefferson 2.35m/s [ 1.00 - 2.80 ] TR Peak PG 22 mmHg RVSP 25.00 mmHg [ 10.00 - 36.00 ] Lateral E` 0.11 m/s [ 0.10 - 0.15 ] E` 0.05 m/s E/E` 7 2D/MM Value Range Doppler ValueRange - FINDINGS: Interpretation Site: Exam was interpreted at [facility]. Left Ventricle: Normal left ventricular size. Mild concentric left ventricularhypertrophy. Normal global left ventricular systolic function. Impaired diastolic relaxation Grade I.Ejection fraction is measured at 79 %. Ejection Fraction is visually estimated luis antonio >70 %. Global Longitudinal Strain is -24 %. Right Ventricle: Normal right ventricular size. Normal right ventricular systolicfunction. Left Atrium: There is moderate enlargement of left atrium. Right Atrium: There is mild enlargement of right atrium. Atrial Septum: Normal atrial septum. Mitral Valve: Mild mitral valve regurgitation. Aortic Valve: No evidence of hemodynamically significant aortic stenosis by Doppler.Trileaflet aortic valve. Mild aortic valve regurgitation. Tricuspid Valve: Estimated peak RVSP is 25 mmHg. Mild tricuspid regurgitation. Pulmonic Valve: Normal appearance of the pulmonic valve. Trivial regurgitation in thepulmonic valve. Pericardium: Normal pericardium with no significant pericardial effusion. Aorta: Sinus of Valsalva is mildly dilated. Sinus of Valsalva 4.1 cm. AscendingAorta 4.6 cm. IVC: Normal size and normal respiratory collapse consistent with normal rightatrial pressure (<5 mmHg). CONCLUSIONS: Normal left ventricular size. Mild concentric left ventricularhypertrophy. Normal global left ventricular systolic function. Impaired diastolic relaxation Grade I.Ejection fraction is measured at 79 %. Ejection Fraction is visually estimated luis antonio >70 %. Global Longitudinal Strain is -24 %. Normal right ventricular size. Normal right ventricular systolicfunction. There is moderate enlargement of left atrium. There is mild enlargement of right atrium. Mild mitral valve regurgitation. No evidence of hemodynamically significant aortic stenosis by Doppler.Trileaflet aortic valve. Mild aortic valve regurgitation. Mild tricuspid regurgitation. Sinus of Valsalva is mildly dilated. Sinus of Valsalva 4.1 cm. AscendingAorta 4.6 cm. Electronically Signed By: Prosper Del Angel MD 04/24/2024 12:33:00 PM CDT us Gaby Best NP CV ECHO PROCEDURES Final Res ult * US Soft Tissue Neck (04/17/2024 10:39 AM VALVE FITTER) Anatomical Region Laterality Modality Head and Neck N/A Ultrasound 04/17/2024 10:5 2 AM VALVE FITTER Impressions 04/17/2024 11:09 AM VALVE FITTER 1. Hypoechoic nodule deep to the superior [...] Joann Villanueva M.D. Narrative 04/17/2024 11:09 AM VALVE FITTER EXAMINATION: US SOFT TISSUE NECK HISTORY: 74-year-old [...] by: Joann Villanueva M.D. Johann Becker MD [facility] PROCEDURES Final Result from Last 3 Months Insurance [employer] MEDICARE HMO [id number] [place] [id number] Advance Directives For more information, please contact: [phone] * Full Code (Latest Code Status on File) Date Activated Date Inactivated Comments 05/16/2024 1:22 PM 05/17/2024 9:10 PM Care Teams Splunk Architect Relationship Specialty Start Date End Date Vladimir Apple MD PCP - General Family Practice 11/27/22 Eric Mills MD [address] [address] Referring Physician Internal Medicine 03/17/24
--- OUTSIDE RECORDS SUMMARY | 2024-06-14 16:11 | XMS_ITS | Encounter Summary ---
Author Organization [facility] Address [address] [place] [address] Phone Care Team Providers Care Car Mechanic Name Role Phone Vladimir Apple MD Primary Care Provider [phone] Eric Mills MD Unavailable [phone] Encounter Details Date Type Department Care Team (Late st Contact Info) Description 06/05/2024 Telephone [facility] [address] [facility] Floor 8 [place] [address] Johann Becker MD [address] [place] [id number] Social History Tobacco Use Types Packs/Day [...] on file 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 No Reason for call?: Patient wondering if orders for her labs can be sent to [facility] instead of [facility] in [place], as [facility] is much closer to her home. Who is the caller: Freida What is the best number for them to contact for a call back: [phone] Last office visit: 05/15/2024 Date of Surgery: 05/16/2024 documented in this encounter Plan of Treatment Not on file documented as of this encounter Visit Diagnoses Not on filedocumented in this encounter Care Teams Car Mechanic Relationship Specialty Start Date End Date Vladimir Apple MD PCP - General Family Practice 11/27/22 Eric Mills MD [address] [place] [address] Referring Physician Internal Medicine 03/17/24 documented as of this encounter
--- OUTSIDE RECORDS SUMMARY | 2024-06-14 16:11 | XMS_ITS | Encounter Summary ---
Author Organization [facility] Address [address] [facility] [address] [place] [address] Care Team Providers Care Polish Maker Name Role Phone Javed Chaudhary MD Primary Care Provider [phone] Lion Crane DO Primary Care Provider [phone] Vladimir Apple MD Primary Care Provider [phone] Eric Mills MD Unavailable [phone] Encounter Details Date Type Department Care Team (Late st Contact Info) Description 05/23/2016 Orders Only [facility] ProviderCristopher MD [address] [place] [address] Social History Tobacco Use Types Packs/Day Years Used Date Smoking Tobacco: Never Alcohol Use Standard Drinks/Week Comments Yes 0 (1 standard drink = 0.6 oz pur e alcohol) Comments Unknown Sex and Gender Information Value Date Recorded Sex Assigned at Not on file 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 Gender Identity Not on file Sexual Orientation [...] on filedocumented in this encounter Care Teams Polish Maker Relationship Specialty Start Date End Date Javed Chaudhary MD [address] [place] [address] PCP - General 05/12/16 07/16/18 Lion Crane DO [address] [place] [address] PCP - General Internal Medicine 07/17/18 11/26/22 Vladimir Apple MD [address] [place] [address] PCP - General Family Practice 11/27/22 Eric Mills MD [address] [facility] [address] [place] [address] Referring Physician Internal Medicine 03/17/24 documented as of this encounter
--- OUTSIDE RECORDS SUMMARY | 2024-06-14 16:11 | XMS_ITS | Encounter Summary ---
Author Organization [facility] Address [address] [place] [address] Phone Care Team Providers Care Banking Services Advisor Name Role Phone Vladimir Apple MD Primary Care Provider [phone] Eric Mills MD Unavailable [phone] Encounter Details Date Type Department Care Team (Late st Contact Info) Description 05/22/2024 Results Follow-Up [facility] On[facility] [address] [facility] Floor 5 [place] [address] Johann Becker MD [address] [place] [address] Social History Tobacco Use Types Packs/Day Years [...] on file 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
--- OUTSIDE RECORDS SUMMARY | 2024-06-14 16:11 | XMS_ITS | Referral Summary ---
Author Organization [facility] Address [address] [place] [address] Care Team Providers Care [employer] Air[employer] Officer Name Role Phone Vladimir Apple MD Primary Care Provider [phone] Eric Mills MD Unavailable Encounters Date Type Department Care Team Description 06/11/2024 2:00 PM CDT Office Visit [facility] Cardiology [address] [facility] [address] [place] [address] Prosper Del Angel MD Aneurysm of ascending aorta without rupture (Primary Dx); Nonrheumatic aortic (valve) insufficiency; Essential hypertension; Hypercholesteremia 06/05/2024 Telephone [facility] Surgery [address] [place] [address] Floor 8 [place] [address] Johann Becker MD 06/04/2024 Telephone [facility] Surgery [address] [place] [address] Floor 5 [place] [address] Mami Ngo RN 06/04/2024 Orders Only [facility] Surgery [address] [place] [address] Floor 5 [place] [address] Mami Ngo RN Hyperparathyroidism (Primary Dx) 06/03/2024 Results Follow-Up [facility] Surgery [address] [place] [address] Floor 5 [place] [address] Johann Becker MD 06/02/2024 4:15 PM CDT Lab [facility] Cancer [place] - Lab Collection [address] [place] [address] Floor 5 [place] [address] Hyperparathyroidism 06/02/2024 3:00 PM CDT Office Visit [facility] Surgery [address] [place] [address] 5 [place] [phone] Johann Becker MD Hyperparathyroidism (Primary Dx) 05/22/2024 Results Follow-Up [facility] Oncology [address] [place] [address] 5 [place] [address] Johann Becker MD 05/16/2024 7:53 AM CDT - 05/17/2024 5:05 PM CDT Hospital Encounter [facility] 1 [place] [address] Johann Becker MD Hyperparathyroidism Discharge Disposition: Discharge to home or self care 05/16/2024 10:50 AM CDT - 05/16/2024 1:05 PM CDT Surgery [facility] Operating Room [facility] [address] [place] [address] Johann Becker MD Neck exploration, 3.5 gland parathyroidectomy 05/16/2024 10:47 AM CDT Anesthesia Event [facility] Operating Room [facility] [address] [place] [address] Shaan Roper MD DDS Gardner, Kari Elizabeth, NP 05/15/2024 Telephone [facility] Surgery [address] [place] [address] 5 [place] [address] Mami Ngo RN 05/15/2024 Telephone [facility] Surgery [address] [place] [address] Floor 8 [place] [address] Johann Becker MD Medical Question/Miscellaneous 04/24/2024 8:15 AM CDT Ancillary Procedure [facility] Cardiology [address] [facility] [address] [place] [phone] Nonrheumatic aortic (valve) insufficiency 04/17/2024 1:00 PM PULPER Office Visit [facility] Surgery [address] [place] [address] 5 [place] [address] Johann Becker MD Hyperparathyroidism 04/17/2024 10:08 AM PULPER - 04/17/2024 11:59 PM PULPER Hospital Encounter [facility] Radiology [facility] [address] [place] [address] Hyperparathyroidism Discharge Disposition: Discharge to home or self care 03/25/2024 Orders Only [facility] Surgery [address] [facility] Floor 5 [place] [address] Johann Becker MD Hyperparathyroidism (Primary Dx) from [...] tablet Take 15 mg by mouth nightly 1/2 tab daily 10/24/19 23 025 Discontinu ed(No [...] on file Legal Sex Female 6:52 PM PULPER Gender Identity Not on file Sexual Orientation [...] 06/11/2024 2:00 PM CDT Plan of Treatment Not on file Medical Devices Explanted Type Area Press Machine Operator Device Identifier Shelf Expiration Date Model / Serial / Lot Parathyroid Tissue - Rlp Explanted:Qty: 1 on 05/16/2024 by Johann Becker MD at [facility] Right: Neck Other 05/30/2024 N/A / / Parathyroid Tissue - Lup Explanted:Qty: 1 on 05/16/2024 by Johann Becker MD at [facility] Left: Neck Other 05/30/2024 N/A / / [...] Routine 05/16/2024 11:48 AM CDT Hyperparathyroidis m AR AN PROCEDURE PLACEHOLDER Routine 05/16/2024 11:46 AM CDT AR AN ELECTIVE ENDOTRACHEAL AIRWAY Routine 05/16/2024 11:46 AM CDT PARATHYROIDECTOMY 05/16/2024 10:50 AM CDT Hyperparathyroidis m Special Needs IntraOp PTH Monitoring and NIMS TRANSTHORACIC ECHO (TTE) COMPLETE W DOPPLER/CF WO CONTRAST Routine 04/24/2024 9:02 AM CDT Nonrheumatic aortic (valve) insufficiency US SOFT TISSUE NECK Schedule Routine, Read Routine (OP Routine) 04/17/2024 10:39 AM PULPER Hyperparathyroidis m from Last 3 Months Results * POCT lipid panel (06/11/2024 2:02 PM CDT) Cholesterol, POC 115 <200 MG/DL HDL, POC 56 >=40 mg/dL Triglycerides, POC 99 <=149 mg/dL LDL Cholesterol POC 40 <=129 mg/dL Chol/HDL Ratio, POC 0.7 NONE Non-HDL Cholesterol, POC 59 NONE mg/dL Cholesterol Total, POC 115 30 - 199 mg/dL Capillary blood 06/11/2024 2 :02 PM CDT [facility] Rossana Del Angel MD POINT OF CARE TEST NATALI HOWARD Final Result * (ABNORMAL) eGFR (06/02/2024 4:12 PM CDT) eGFR 39(L) >=60 mL/min/1. 73 m2 Comment: [...] BLOOD ORDERABLES Final Result Performing Organization Address City/[facility]/ZIP Co de Phone Number [facility] Department [place] [address] * PTH (06/02/2024 4:12 PM CDT) PTH 18 15 - 65 pg/mL Blood 06/02/2024 4:12 PM CDT 06/02/2024 6:11 PM CDT us Genoveva Reynaga MD LAB BLOOD ORDERABLES Final Result [facility] Department [place] [address] * (ABNORMAL) Basic metabolic panel (06/02/2024 4:12 PM CDT) [facility] Sodium 136 135 - 145 mmol/L Potassium, pl 4.6 3.3 - 4.9 mmol/L [facility] Chloride 95(L) 97 - 110 mmol/L [facility] CO2 28 22 - 32 mmol/L [facility] Anion gap 13 2 - 15 mmol/L [facility] BUN 27(H) 6 - 25 mg/dL [facility] Creatinine 1.42(H) 0.60 - 1.10 mg/dL [facility] Glucose 97 70 - 199 mg/dL [facility] Comment: Interpretive Data Fasting glucose >/= 126 [...] 2022. Calcium 11.1(H) 8.5 - 10.3 mg/dL [facility] Blood 06/02/2024 4:12 PM CDT 06/02/2024 4:32 PM CDT us Genoveva Reynaga MD LAB BLOOD ORDERABLES Final Result [facility] Department [place] [address] * Calcium, ionized (05/17/2024 3:57 AM CDT) [facility] Calcium, Ionized 4.89 4.50 - 5.10 mg/dL Blood 05/17/2024 3:57 AM CDT 05/17/2024 4:17 AM CDT Johann Becker MD LAB BLOOD ORDERABLES Fi nal Result Performing Organization Address City/[facility] Co de Phone Number [facility] [place] [address] * (ABNORMAL) PTH (05/17/2024 3:57 AM CDT) PTH 11(L) 15 - 65 pg/mL Blood 05/17/2024 3:57 AM CDT 05/17/2024 4:31 AM CDT Johann Becker MD LAB BLOOD ORDERABLES Fi nal Result Performing Organization Address [facility] [[email or web address]] de Phone Number [facility] [place] [address] * (ABNORMAL) PTH (05/16/2024 7:21 PM CDT) PTH 14(L) 15 - 65 pg/mL Blood 05/16/2024 7:21 PM CDT 05/16/2024 8:21 PM CDT Johann Becker MD LAB BLOOD ORDERABLES Fi nal Result Performing Organization Address [facility] Co de Phone Number [facility] [place] [address] * (ABNORMAL) Calcium level (05/16/2024 7:21 PM CDT) Calcium 10.9(H) 8.5 - 10.3 mg/dL Blood 05/16/2024 7:21 PM CDT 05/16/2024 8:21 PM CDT Johann Becker MD LAB BLOOD ORDERABLES Fi nal Result Performing Organization Address City/[facility] [place] [address] * (ABNORMAL) Calcium, ionized (05/16/2024 4:24 PM CDT) Calcium, Ionized 5.54(H) 4.50 - 5.10 mg/dL Blood 05/16/2024 4:24 PM CDT 05/16/2024 4:40 PM CDT Johann Becker MD LAB BLOOD [place] [address] * PTH (05/16/2024 4:24 PM CDT) Pathologist [facility] PTH 19 15 - 65 pg/mL Blood 05/16/2024 4:24 PM CDT 05/16/2024 4:44 PM CDT Johann Becker MD LAB BLOOD ORDERABLES Fi nal Result Performing Organization Address [facility] [place] [address] * (ABNORMAL) PTH (05/16/2024 12:00 PM CDT) PTH 208(H) 15 - 65 pg/mL Comment:Intra-operative spec imen. Telephone report made to Karen Del Angel RN on 05/16/2024 12:24:57 CDT by DLB. Blood 05/16/2024 12:0 0 PM CDT 05/16/2024 12:08 PM CDT Johann Becker MD LAB BLOOD ORDERABLES Fi nal Result Performing Organization Address City/[facility]/[place] [address] * (ABNORMAL) PTH (05/16/2024 11:54 AM CDT) PTH 240(H) 15 - 65 pg/mL Comment:Intra-operative spec imen. Telephone report made to Karen Del Angel RN on 05/16/2024 12:19:18 CDT by DLB. Blood 05/16/2024 11:5 4 AM CDT 05/16/2024 12:04 PM CDT us Johann Becker MD LAB BLOOD ORDERABLES Fi nal Result Performing Organization Address [facility] Co de Phone Number [facility] Department [place] [address] * (ABNORMAL) PTH (05/16/2024 11:51 AM CDT) PTH 329(H) 15 - 65 pg/mL Comment:Intra-operative spec imen. Telephone report made to Karen Del Angel RN on 05/16/2024 12:19:18 CDT by DLB. Blood 05/16/2024 11:5 1 AM CDT 05/16/2024 12:04 PM CDT us Johann Becker MD LAB BLOOD ORDERABLES Fi nal Result Performing Organization Address [facility] Co de Phone Number [facility] Department [place] [address] * Surgical pathology (05/16/2024 11:48 AM CDT) Tissue (Parathyroid Gland) 05/16/2024 11:48 AM CDT Tissue specimen (specimen) (Parathyroid Gland) 05/16/2024 12:09 PM CDT Tissue specimen (specimen) (Parathyroid Gland) 05/16/2024 12:23 PM CDT Tissue specimen (specimen) (Parathyroid Gland) 05/16/2024 12:27 PM CDT Narrative PATHOLOGY [facility] - 05/22/2024 4:34 PM CDT EPIC results best viewed via link to PDF [facility] [place] [address] Note to Patients: This report may contain [...] Gender: F : 1950 (Age: 74) Address: [address] [place], [place] [address] Hospital #: [id number] Taken:05/16/2024 Received:05/16/2024 Reported: 05/22/2024 Patient Type: [facility] OP In Bed Service: Surgery Location: [place] [address] Physician(s): Salina Mcpherson M.D. Diagnosis: A. Parathyroid, [...] Gonzalez M.D., Ph.D., Damion Diaz MS, PA ([facility]) BFR1: Left upper parathyroid - Parathyroid tissue present By Salomon Small M.D., Matt Gonzalez M.D., Ph.D., Damion Diaz MS, PA ([facility]) CFR1: Right upper parathyroid - Parathyroid tissue present By Salomon Small M.D., Matt Gonzalez M.D., Ph.D., Damion Diaz MS, PA ([facility]) DFR1: Right lower parathyroid - Parathyroid tissue present By Salomon Small M.D., Matt Gonzalez M.D., Ph.D., Damion Diaz MS, PA ([facility]) Gross Consultation A: Left lower parathyroid Received fresh is a piece of ruiz-pink tissue measuring 1.0 x 0.5 x 0.5 and 0.21 g, submitted in toto and labeled AFR1. By Salomon Small M.D., Matt Gonzalez M.D., Ph.D., Damion Diaz MS, PA ([facility]) B: Left upper parathyroid Received fresh is a piece of ruiz-pink tissue measuring 0.9 x 0.8 x 0.3 and 0.18 g, submitted in toto and labeled BFR1. By Salomon Small M.D., Matt Gonzalez M.D., Ph.D., Damion Diaz MS, PA ([facility]) C: Right upper parathyroid Received fresh is a piece of ruiz-pink tissue measuring 0.2 x 0.2 x 0.1 and less than 0.1 g, submitted in toto and labeled CFR1. By Salomon Small M.D., Matt Gonzalez M.D., Ph.D., Damion Diaz MS PA ([facility]) D: Right lower parathyroid Received fresh is a piece of ruiz-pink tissue measuring 0.3 x 0.2 x 0.1 and less than 0.1 g, submitted in toto and labeled DFR1. By Salomon Small M.D., Matt Gonzalez M.D., Ph.D., Damion Diaz MS, PA ([facility])CM I personally examined the relevant preparation(s) or [...] frozen section remnant. Labeled DFR1. Jar 0. /05/19/2024 11:24 PA(s): Mallorie Burns, MS, PA ([facility])CM By this signature, I attest that the above diagnosis is based upon my personal examination of the slides(and/or other material). Addenda/Procedures The performance characteristics of some immunohistochemical stains, fluorescence in-situ hybridization tests and immunophenotyping by flow cytometry cited in this report (if any) were determined by the Surgical Pathology and Flow Cytometry Departments at [facility] as part of an ongoing air quality specialist program and in compliance with federally mandated [...] Surgical Pathology and Flow Cytometry Departments of [facility]. It has not been cleared or approved by the U. S. Food and Drug Administration. IMAGES AND SCANNED DOCUMENTS, IF INCLUDED, ONLY VIEWABLE IN PDF VERSION OF REPORT us Johann Becker MD LAB PATHOLOGY ORDERABLE S Final Result PATHOLOGY [facility] 3rd Floor [place], [place] [phone] * AR AN ELECTIVE ENDOTRACHEAL AIRWAY, AR AN PROCEDURE PLACEHOLDER (05/16/2024 11:46 AM CDT) Narrative Shaan Roper MD DDS - 05/16/2024 11:46 AM CDT Shaan Roper MD DDS 05/16/2024 11:59 AM Airway Patient location: OR Urgency: elective Date/time: 05/16/2024 11:00 AM Indications for airway management: anesthesia Difficult airway: no Staff: Placed by: PV INSTALLER TECH: Michelle Falk CRNA Emergent airway documentation: Risks and benefits [...] between attempts: none Planned trial extubation: yes us Shaan Roper MD, DDS ANESTHESIA ORDERABLES Nola l Result * TRANSTHORACIC ECHO (TTE) COMPLETE W DOPPLER/CF WO CONTRAST (04/24/2024 9:02 AM CDT) LV EF >70 % CONS SCIMAGE Anatomical Region Laterality Modality Ultrasound 04/24/2024 8:16 AM CDT Narrative 04/24/2024 12:34 PM CDT [facility] Cardiology [address], [place] [address] [address], [place] [address] P:[phone] P:[phone] Echocardiographic Report Patient Name: FREIDA FERNANDO K : 1950 Study Date: 04/24/2024 8:16:15 AM Gender: F Tech: [facility] Location: [facility] Provider: GABY BEST Height(Cm): 163 BSA: [...] FINDINGS: Interpretation Site: Exam was interpreted at [facility]. Left Ventricle: Normal left ventricular size. [...] Note Prosper Del Angel MD - 04/24/2024 [facility] Medical [facility] Cardiology [address] [facility] [address], [place] [address] [address] [facility] [address], [place], [place] [address] P:[phone] P:[phone] Echocardiographic Report Patient Name: FREIDA FERNANDO K : 1950 Study Date: 04/24/2024 8:16:15 AM Gender: F Tech: [facility] Location: [facility] Provider: GABY BEST Height(Cm): 163 BSA: [...] FINDINGS: Interpretation Site: Exam was interpreted at [facility]. Left Ventricle: Normal left ventricular size. [...] Del Angel MD 04/24/2024 12:33:00 PM CDT Gaby Best NP CV ECHO PROCEDURES Final Res ult * US Soft Tissue Neck (04/17/2024 10:39 AM PULPER) Anatomical Region Laterality Modality Head and Neck N/A Ultrasound 04/17/2024 10:5 2 AM PULPER Impressions 04/17/2024 11:09 AM PULPER 1. Hypoechoic nodule deep to the superior [...] Joann Villanueva M.D. Narrative 04/17/2024 11:09 AM PULPER EXAMINATION: US SOFT TISSUE NECK HISTORY: 74-year-old [...] it. Electronically signed by: Joann Villanueva M.D. us Johann Becker MD [facility] [place] PROCEDURES Final Result from Last 3 Months Insurance [employer] MEDICARE HMO Advance Directives For more information, please contact: [phone] * Full Code (Latest Code Status on File) Date Activated Date Inactivated Comments 05/16/2024 1:22 PM 05/17/2024 9:10 PM Care Teams Navy Airspace Officer Relationship Specialty Start Date End Date Vladimir Apple MD PCP - General Family Practice 11/27/22 Eric Mills MD [address] [address] Referring Physician Internal Medicine 03/17/24
--- OUTSIDE RECORDS SUMMARY | 2024-06-14 16:11 | XMS_ITS | Clinical Summary ---
Author Organization [facility] Address [address] [facility] [place] [address] Care Team Providers Care Sustainability Project Manager Name Role Phone Vladimir Apple MD Primary Care Provider [phone] Source Comments [facility],non-owned Affiliates and Associated Physician Practices is amultiple site organization consisting of ambulatory clinics and hospital sitesin [place], [place], [place] and [place]. This disclosure is being madepursuant to the Care Everywhere program and may not contain all information available regarding this patient. Last updated 17.[facility] Allergies No known active allergies Medications * Be aware that medications may not be up to date on this document. Alwaysverify current medications with the patient. lisinopril (Prinivil; Zestril) 40 MG tablet Take 1 (one) tablet by mouth 2 times daily Active amLODIPine (Norvasc) 10 MG tablet Take 1 (one) tablet by mouth once daily Active levothyroxine (Synthroid) 100 MCG tablet Take 1 (one) tablet by mouth every morning 3 Active metoprolol succinate XL 24hr (Toprol XL) 50 MG tablet Take 1 (one) tablet by mouth once daily Active spironolactone -hydroCHLOROth iazide (Aldactazide 25) 25-25 MG tablet Take 1 (one) tablet by mouth once daily 3 Active atorvastatin (Lipitor) 40 MG tablet Take 1 (one) tablet by mouth once daily Active latanoprost (Xalatan) 0.005 % ophthalmic solution Instill 1 (one) drop into both eyes at bedtime 4 Active Riboflavin 400 MG Take 1 tablet by mouth once daily Active multivitamin daily tablet Take 1 (one) tablet by mouth once daily Active Ford-3 Fatty Acids (fish oil) 500 MG capsule Take 1,200 (one thousand two hundred) mg by mouth once daily Active vitamin D3 (Cholecalcifer ol) 25 MCG (1000 UNITS) tablet Take 2 [...] Date Diagnosed Date Primary hyperparathyroidism 07/26/2023 Immunizations Immunization Administration Dates Next Due FLU VACCINE TRI [...] oz pur e alcohol) 2 a month Comments Unknown Sex and Gender Information Value Date Recorded Sex Assigned at Not on file Legal Sex Female 5:05 AM CDT Gender Identity Not on file Sexual Orientation [...] 2023 11/28/2022, 05/23/2022, 12/15/2020, Additional history exists DEPRESSION SCREENING 02/13/2024 MEDICARE AWV CALENDAR YEAR 2024 INFLUENZA VACCINE (Season Ended) 2024 10/10/2022, 10/05/2021, 10/22/2020, Additional history exists COLOGUARD (AGES 45-75) - COLON CA SCREENING 12/22/2024 12/22/2021 Colorectal Cancer Screening 12/22/2024 Respiratory Syncytial Virus (RSV) Vaccine Pt: or over 60 yrs (1 - 1-dose 75+ series) 2025 DTAP/TDAP/TD VACCINES (2 - Td or Tdap) 10/11/2032 10/11/2022 PNEUMOCOCCAL VACCINE 50+ Completed 022, 10/18/2019, 12/23/2015 HEPATITIS B VACCINE Aged Out No longe r eligible based on patient's age to complete this topic HIB VACCINE Aged Out No longer eligi ble based on patient's age to complete this topic HPV VACCINE Aged Out No longer eligi ble based on patient's age to complete this topic MENINGOCOCCAL (Group B) VACCINE SHARED DECISION-MAKING Aged Out No longer eligible based on patient's age to complete this topic MENINGOCOCCAL GROUPS A/C/Y/W VACCINE Aged Out No longer eligible based on patient's age to complete this topic Insurance [facility] MANAGED MEDICARE ADV Care Teams Sustainability Project Manager Relationship Specialty Start Date End Date Vladimir Apple MD [address] [place] [phone] PCP - General Family Medicine 07/25/23
--- OUTSIDE RECORDS SUMMARY | 2024-06-14 16:11 | XMS_ITS | Encounter Summary ---
Author Organization [facility] Address [address] [place] [address] Phone Care Team Providers Care Online Advertising Director Name Role Phone Vladimir Apple MD Primary Care Provider [phone] Eric Mills MD Unavailable [phone] Reason for Visit * Reason Onset Date Comments Medical Question/Miscellaneous 05/15/2024 Encounter Details Date Type Department Care Team (Late st Contact Info) Description 05/15/2024 Telephone [facility] Surgery [address] [facility] Floor [address] [place] [address] Johann Becker MD [address] [place] [address] Medical Question/Miscellaneous Social History Tobacco Use Types Packs/Day Years [...] on file 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 Monthly or less 05/16/2024 8:32 AM CDT Sandi Vides ra, RN Q2: How many drinks containing alcohol do you have on a typical day when you are drinking? 1 or 2 05/16/2024 8:32 AM MARINAT Sandi Vides ra, RN Q3: How often do you have six or more drinks on one occasion? Never 05/16/2024 8:32 AM CDT Sandi Vides ra, RN documented as of this encounter Miscellaneous Notes * Telephone Encounter - Zandra Meek - 05/15/2024 2:44 PM CDT Patient Query: Was an attempt to transfer to the assigned clinical staff or backline? No - Pt checking surgery details Reason for call?: Pt Freida is requesting a call today regarding her surgery details and not just a MyChart message as she may miss it, and may have questions. She would like a call back on her home phone number. Who is the caller: PtFreida What is the best number for them to contact for a call back: [phone] Last office visit: Visit date not found Date of Surgery: No surgery found documented in this encounter Plan of Treatment Not on file documented as of this encounter Visit Diagnoses Not on filedocumented in this encounter Care Teams Online Advertising Director Relationship Specialty Start Date End Date Vladimir Apple MD PCP - General Family Practice 11/27/22 Eric Mills MD [address] [place] [address] Referring Physician Internal Medicine 03/17/24 documented as of this encounter
== END 2024-06-14 09:46 | disposition home or self-care (01) ==
LOC: ANHLAB 09:48
PROVIDERS: PCP Family Medicine; Visit Provider Internal Medicine
DX: E03.9 Hypothyroidism, unspecified (principal); E78.2 Mixed hyperlipidemia; E83.52 Hypercalcemia; I10 Essential (primary) hypertension; M81.0 Age-related osteoporosis without current pathological fracture
CPT/HCPCS: 36415; 80053; 82306; 83735; 83970; 84100; 84439; 84443

== ENCOUNTER 2024-07-25 12:07 | Outpatient (CLI) | payer MEDICARE, SELFPAY ==
--- OUTSIDE RECORDS SUMMARY | 2024-07-25 12:10 | XMS_ITS | Encounter Summary ---
Author Organization [facility] Address [address] [place] [address] Care Team Providers Care Legal Librarian Name Role Phone Javed Chaudhary MD Primary Care Provider [phone] Lion Crane DO Primary Care Provider [phone] Vladimir Apple MD Primary Care Provider [phone] Eric Mills MD Unavailable [phone] Encounter Details Date Type Department Care Team (Late st Contact Info) Description 05/23/2016 Orders Only [facility] ProviderCristopher MD [address] [place] [address] Social History Tobacco Use Types Packs/Day Years Used Date Smoking Tobacco: Never Alcohol Use Standard Drinks/Week Comments Yes 0 (1 standard drink = 0.6 oz pur e alcohol) Comments Unknown Sex and Gender Information Value Date Recorded Sex Assigned at Not on file 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 Gender Identity Not on file Sexual Orientation [...] on filedocumented in this encounter Care Teams Legal Librarian Relationship Specialty Start Date End Date Javed Chaudhary MD [address] [place] [address] PCP - General 05/12/16 07/16/18 Lion Crane DO [address] [place] [address] PCP - General Internal Medicine 07/17/18 11/26/22 Vladimir Apple MD [address] [place] [address] PCP - General Family Practice 11/27/22 Eric Mills MD [address] [facility] [address] [place] [address] Referring Physician Internal Medicine 03/17/24 documented as of this encounter
--- OUTSIDE RECORDS SUMMARY | 2024-07-25 12:10 | XMS_ITS | Clinical Summary ---
Author Organization [facility] Address [address] [place] [address] Care Team Providers Care City Marshal Name Role Phone Vladimir Apple MD Primary Care Provider [phone] Eric Mills MD Unavailable [phone] Allergies No known active allergies Medications cholecalciferol [...] route every day 90 3 4 Active levothyroxine (SYNTHROID) 100 mcg tablet Take 1 tablet (100 mcg total) by mouth every morning Except none on Sundays 3 Active atorvastatin (LIPITOR) 40 mg tablet [...] EVERY DAY 90 tablet 3 4 Active multivitamin tablet Take 1 tablet by mouth every morning Active acetaminophen (TYLENOL) 500 mg tablet Take 1 tablet (500 mg total) by mouth every 4 (four) hours as needed for pain Active docosahexaenoic acid/epa (FISH OIL ORAL) Take by mouth every morning Active calcium carbonate (OS-LEN) 1,250 mg (500 mg elemental) tabletIndications :hypocalcemia Take 1 tablet (1,250 mg total) by mouth every 8 (eight) hours 90 tablet 1 5 Active oxyCODONE (ROXICODONE) 5 mg immediate release tabletIndications :Pain Take 1 tablet (5 mg total) by mouth every 4 (four) hours as needed for pain for up to 6 doses 6 tablet 5 Active Active Problems Problem Noted Date Diagnosed Date HPTH (hyperparathyroidism) 05/16/2024 Hyperparathyroidism 04/17/2024 Nonrheumatic aortic (valve) insufficiency 2017 Aneurysm, ascending aorta 07/23/2017 Essential hypertension 07/23/2017 Hypercholesteremia 07/23/2017 Myalgia 07/23/2017 Encounters Date Type Department Care Team Description 06/18/2024 9:00 AM CDT Lab [facility] Lab [address] [place] [address] Hyperparathyroidism 06/18/2024 Telephone [facility] Surgery [address] [place] [address] Floor 5 [place] [address] Mami Ngo RN 06/18/2024 Results Follow-Up [facility] Surgery [address] [place] [address] Floor 5 [place] [address] Johann Becker MD Basic metabolic panel, PTH, eGFR 06/11/2024 2:00 PM CDT Office Visit [facility] Cardiology [address] [place] [address] Prosper Del Angel MD Aneurysm of ascending aorta without rupture (Primary Dx); Nonrheumatic aortic (valve) insufficiency; Essential hypertension; Hypercholesteremia 06/05/2024 Telephone [facility] Surgery [address] [place] [address] Floor 8 [place] [address] Johann Becker MD 06/04/2024 Telephone [facility] Surgery [address] [place] [address] 5 [place] [phone] Mami Ngo RN 06/04/2024 Orders Only [facility] Surgery [address] [place] [address] 5 [place] [phone] Mami Ngo RN Hyperparathyroidism (Primary Dx) 06/03/2024 Results Follow-Up [facility] Surgery [address] [place] [phone] Johann Becker MD Basic metabolic panel, PTH, eGFR 06/02/2024 4:15 PM CDT Lab [facility] [address] [place] [address] Hyperparathyroidism 06/02/2024 3:00 PM CDT Office Visit [facility] Surgery [address] [place] [phone] Johann Becker MD Hyperparathyroidism (Primary Dx) 05/22/2024 Results Follow-Up [facility] Oncology [address] [place] [phone] Johann Becker MD Surgical pathology 05/16/2024 10:50 AM CDT - 05/16/2024 1:05 PM CDT Surgery [facility] Operating [facility] [address] [place] [address] Johann Becker MD Neck exploration, 3.5 gland parathyroidectomy 05/16/2024 10:47 AM CDT Anesthesia Event [facility] Operating [facility] [address] [place] [address] Shaan Roper MD DDS Gardner, Kari Elizabeth, NP 05/16/2024 7:53 AM CDT - 05/17/2024 5:05 PM CDT Hospital Encounter [address] [address] Johann Becker MD Hyperparathyroidism Discharge Disposition: Discharge to home or self care 05/15/2024 Telephone [facility] Surgery [address] [facility] [address] 5 [place] [address] Mami Ngo RN 05/15/2024 Telephone [facility] Surgery 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 Gender Identity Not on file Sexual Orientation [...] 2:00 PM CDT Height 170.2 cm (5' 7) 06/11/2024 2:00 PM CDT Body Mass Index [...] 10/18/2019, 12/13 Medical Devices Explanted Type Area Agent Telegrapher Device Identifier Shelf Expiration Date Model / Serial / Lot Parathyroid Tissue - Rlp Explanted:Qty: 1 on 05/16/2024 by Johann Becker MD at [facility] Right: Neck Other 05/30/2024 N/A / / Parathyroid Tissue - Lup Explanted:Qty: 1 on 05/16/2024 by Johann Becker MD at [facility] Left: Neck Other 05/30/2024 N/A / / Procedures Procedure Name Priority Date/Time Associated Diagnosis Comments EGFR Routine 06/18/2024 9:12 AM CDT Hyperparathyroidis m PTH Routine 06/18/2024 9:12 AM CDT Hyperparathyroidis m BASIC METABOLIC PANEL Routine 06/18/2024 9:12 AM CDT Hyperparathyroidis m POCT LIPID PANEL Routine 06/11/2024 2:02 PM [...] Routine 05/16/2024 11:48 AM CDT Hyperparathyroidis m SD AN PROCEDURE PLACEHOLDER Routine 05/16/2024 11:46 AM CDT SD AN ELECTIVE ENDOTRACHEAL AIRWAY Routine 05/16/2024 11:46 AM CDT PARATHYROIDECTOMY 05/16/2024 10:50 AM CDT Hyperparathyroidis m Special Needs IntraOp PTH Monitoring and NIMS TRANSTHORACIC ECHO (TTE) COMPLETE W DOPPLER/CF WO CONTRAST Routine 04/24/2024 9:02 AM CDT Nonrheumatic aortic (valve) insufficiency from Last 3 Months Results * (ABNORMAL) eGFR (06/18/2024 9:12 AM CDT) eGFR 42(L) >=60 mL/min/1. 73 m2 Comment: Interpretive Data [...] interpretive data was last reviewed 2020. Blood 06/18/2024 9:12 AM CDT 06/18/2024 9:26 AM CDT us Johann Becker MD LAB BLOOD ORDERABLES Fi nal Result [facility] [address] [facility] [place] [address] * PTH (06/18/2024 9:12 AM CDT) Pathologist [facility] PTH 27 15 - 65 pg/mL Blood 06/18/2024 9:12 AM CDT 06/18/2024 9:26 AM CDT Johann Becker MD LAB BLOOD ORDERABLES Fi nal Result [facility] [address] [facility] [place] [address] * (ABNORMAL) Basic metabolic panel (06/18/2024 9:12 AM CDT) [facility] Sodium 133(L) 135 - 145 mmol/L Potassium, pl 4.5 3.3 - 4.9 mmol/L [facility] Chloride 97 97 - 110 mmol/L [facility] CO2 25 22 - 32 mmol/L [facility] Anion gap 11 2 - 15 mmol/L [facility] BUN 22 6 - 25 mg/dL [facility] Creatinine 1.32(H) 0.60 - 1.10 mg/dL [facility] Glucose 97 70 - 199 mg/dL [facility] Comment: Interpretive Data Fasting glucose >/= 126 [...] classification and Diagnosis of Diabetes Diabetes Care 202; 46: S19-S40. Current interpretive data was last revised 2022. Calcium 9.5 8.5 - 10.3 mg/dL [facility] Blood 06/18/2024 9:12 AM CDT 06/18/2024 9:26 AM CDT Johann Becker MD LAB BLOOD ORDERABLES Fi nal Result [facility] [address] [facility] [place] [address] * POCT lipid panel (06/11/2024 2:02 PM CDT) Cholesterol, POC 115 <200 MG/DL HDL, POC 56 >=40 mg/dL Triglycerides, POC 99 <=149 mg/dL LDL Cholesterol POC 40 <=129 mg/dL Chol/HDL Ratio, POC 0.7 NONE Non-HDL Cholesterol, POC 59 NONE mg/dL Cholesterol Total, POC 115 30 - 199 mg/dL Capillary blood 06/11/2024 2 :02 PM CDT us Prosper Del Angel MD POINT OF CARE TEST ORDE ANITA Final Result * (ABNORMAL) eGFR (06/02/2024 4:12 [...] 4:12 PM CDT 06/02/2024 4:40 PM CDT us Genoveva Reynaga MD LAB BLOOD ORDERABLES Final Result [facility] [address] [facility] Department [place] [address] * PTH (06/02/2024 4:12 PM CDT) PTH 18 15 - 65 pg/mL Blood 06/02/2024 4:12 PM CDT 06/02/2024 6:11 PM CDT us Genoveva Reynaga MD LAB BLOOD ORDERABLES Final Result Performing Organization Address [facility] Co de Phone Number [facility] [place] [address] * (ABNORMAL) Basic metabolic panel (06/02/2024 4:12 PM CDT) Pathologist [facility] Sodium 136 135 - 145 mmol/L Potassium, pl 4.6 3.3 - 4.9 mmol/L [facility] Chloride 95(L) 97 - 110 mmol/L [facility] CO2 28 22 - 32 mmol/L [facility] Anion gap 13 2 - 15 mmol/L [facility] BUN 27(H) 6 - 25 mg/dL [facility] Creatinine 1.42(H) 0.60 - 1.10 mg/dL [facility] Glucose 97 70 - 199 mg/dL [facility] Comment: Interpretive Data Fasting glucose >/= 126 [...] 2022. Calcium 11.1(H) 8.5 - 10.3 mg/dL [facility] Blood 06/02/2024 4:12 PM CDT 06/02/2024 4:32 PM CDT us Genoveva Reynaga MD LAB BLOOD ORDERABLES Final Result Performing Organization Address [facility] de Phone Number [facility] [place] [address] * Calcium, ionized (05/17/2024 3:57 AM CDT) Calcium, Ionized 4.89 4.50 - 5.10 mg/dL Blood 05/17/2024 3:57 AM CDT 05/17/2024 4:17 AM CDT Johann Becker MD LAB BLOOD ORDERABLES Fi nal Result Performing Organization Address [facility] Phone Number [facility] [place] [address] * (ABNORMAL) PTH (05/17/2024 3:57 AM CDT) PTH 11(L) 15 - 65 pg/mL Blood 05/17/2024 3:57 AM CDT 05/17/2024 4:31 AM CDT Johann Becker MD LAB BLOOD ORDERABLES Fi nal Result Performing Organization Address [facility] Phone Number [facility] [place] [address] * (ABNORMAL) PTH (05/16/2024 7:21 PM CDT) PTH 14(L) 15 - 65 pg/mL Blood 05/16/2024 7:21 PM CDT 05/16/2024 8:21 PM CDT Johann Becker MD LAB BLOOD ORDERABLES Fi nal Result Performing Organization Address [facility]/ZIP Co de Phone Number [facility] [place] [address] * (ABNORMAL) Calcium level (05/16/2024 7:21 PM CDT) Calcium 10.9(H) 8.5 - 10.3 mg/dL Blood 05/16/2024 7:21 PM CDT 05/16/2024 8:21 PM CDT Johann Becker MD LAB BLOOD ORDERABLES Fi nal Result Performing Organization Address [facility] [place] [address] * (ABNORMAL) Calcium, ionized (05/16/2024 4:24 PM CDT) Calcium, Ionized 5.54(H) 4.50 - 5.10 mg/dL Blood 05/16/2024 4:24 PM CDT 05/16/2024 4:40 PM CDT Johann Becker MD LAB BLOOD ORDERABLES Fi nal Result Performing Organization Address [facility] [place] [address] * PTH (05/16/2024 4:24 PM CDT) PTH 19 15 - 65 pg/mL Blood 05/16/2024 4:24 PM CDT 05/16/2024 4:44 PM CDT Johann Becker MD LAB BLOOD ORDERABLES Fi nal Result [facility] [place] [address] * (ABNORMAL) PTH (05/16/2024 12:00 PM CDT) PTH 208(H) 15 - 65 pg/mL Comment:Intra-operative spec imen. Telephone report made to Karen Del Angel RN on 05/16/2024 12:24:57 CDT by DLB. Blood 05/16/2024 12:0 0 PM CDT 05/16/2024 12:08 PM CDT us Johann Becker MD LAB BLOOD ORDERABLES Fi nal Result Performing Organization Address [facility] de Phone Number [facility] Department [place] [address] * (ABNORMAL) PTH (05/16/2024 11:54 AM CDT) PTH 240(H) 15 - 65 pg/mL Comment:Intra-operative spec imen. Telephone report made to Karen Del Angel RN on 05/16/2024 12:19:18 CDT by DLB. Blood 05/16/2024 11:5 4 AM CDT 05/16/2024 12:04 PM CDT us Johann Becker MD LAB BLOOD ORDERABLES Fi nal Result Performing Organization Address [facility] Co de Phone Number [facility] Department [place] [address] * (ABNORMAL) PTH (05/16/2024 11:51 AM CDT) PTH 329(H) 15 - 65 pg/mL Comment:Intra-operative spec imen. Telephone report made to Karen Del Angel RN on 05/16/2024 12:19:18 CDT by DLB. Blood 05/16/2024 11:5 1 AM CDT 05/16/2024 12:04 PM CDT us Johann Becker MD LAB BLOOD ORDERABLES Fi nal Result Performing Organization Address City/[facility] Co de Phone Number [facility] Department [place] [address] * Surgical pathology (05/16/2024 11:48 AM CDT) Tissue (Parathyroid Gland) 05/16/2024 11:48 AM CDT Tissue specimen (specimen) (Parathyroid Gland) 05/16/2024 12:09 PM CDT Tissue specimen (specimen) (Parathyroid Gland) 05/16/2024 12:23 PM CDT Tissue specimen (specimen) (Parathyroid Gland) 05/16/2024 12:27 PM CDT Narrative PATHOLOGY [facility] - 05/22/2024 4:34 PM CDT EPIC results best viewed via link to PDF [facility] [place] [address] Note to Patients: This report may contain [...] Gender: F : 1950 (Age: 74) Address: [address] [place] [id number] Hospital #: [id number] Taken:05/16/2024 Received:05/16/2024 Reported: 05/22/2024 Patient Type: [facility] OP In Bed Service: Surgery Location: [facility] 8738 Physician(s): Salina Mcpherson M.D. Diagnosis: A. Parathyroid, [...] Gonzalez M.D., Ph.D., Damion Diaz MS, PA ([facility])CM BFR1: Left upper parathyroid - Parathyroid tissue present By Salomon Small M.D., Matt Gonzalez M.D., Ph.D., Damion Diaz MS, PA ([facility])CM CFR1: Right upper parathyroid - Parathyroid tissue present By Salomon Small M.D., Matt Gonzalez M.D., Ph.D., Damion Diaz MS, PA ([facility])CM DFR1: Right lower parathyroid - Parathyroid tissue present By Salomon Small M.D., Matt Gonzalez M.D., Ph.D., Damion Diaz MS, PA ([facility])CM Gross Consultation A: Left lower parathyroid Received fresh is a piece of ruiz-pink tissue measuring 1.0 x 0.5 x 0.5 and 0.21 g, submitted in toto and labeled AFR1. By Salomon Small M.D., Matt Gonzalez M.D., Ph.D., Damion Diaz MS, PA ([facility])CM B: Left upper parathyroid Received fresh is a piece of ruiz-pink tissue measuring 0.9 x 0.8 x 0.3 and 0.18 g, submitted in toto and labeled BFR1. By Slaomon Small M.D., Matt Gonzalez M.D., Ph.D., Damion Diaz MS, PA ([facility]) C: Right upper parathyroid Received fresh is a piece of ruiz-pink tissue measuring 0.2 x 0.2 x 0.1 and less than 0.1 g, submitted in toto and labeled CFR1. By Salomon Small M.D., Matt Gonzalez M.D., Ph.D., Damion Diaz MS, PA ([facility] D: Right lower parathyroid Received fresh is a piece of ruiz-pink tissue measuring 0.3 x 0.2 x 0.1 and less than 0.1 g, submitted in toto and labeled DFR1. By Salomon Small M.D., Matt Gonzalez M.D., Ph.D., Damion Diaz MS, PA ([facility] I personally examined the relevant preparation(s) or [...] DFR1. Jar 0. /05/19/2024 11:24 PA(s): Mallorie Burns MS, PA ([facility]) By this signature, I attest that the above diagnosis is based upon my personal examination of the slides(and/or other material). Addenda/Procedures The performance characteristics of some immunohistochemical stains, fluorescence in-situ hybridization tests and immunophenotyping by flow cytometry cited in this report (if any) were determined by the Surgical Pathology and Flow Cytometry Departments at [facility] as part of an ongoing quality control associate program and in compliance with federally mandated [...] Surgical Pathology and Flow Cytometry Departments of [facility]. It has not been cleared or approved by the U. S. Food and Drug Administration. IMAGES AND SCANNED DOCUMENTS, IF INCLUDED, ONLY VIEWABLE IN PDF VERSION OF REPORT us Johann Becker MD LAB PATHOLOGY ORDERABLE S Final Result PATHOLOGY [facility] 3rd Floor [place], [place] [phone] * SD AN ELECTIVE ENDOTRACHEAL AIRWAY, SD AN PROCEDURE PLACEHOLDER (05/16/2024 11:46 AM CDT) Narrative Shaan Roper MD DDS - 05/16/2024 11:46 AM CDT Shaan Roper MD DDS 05/16/2024 11:59 AM Airway Patient location: OR Urgency: elective Date/time: 05/16/2024 11:00 AM Indications for airway management: anesthesia Difficult airway: no Staff: Placed by: ASSISTANT QUALITY MANAGER: Michelle Falk CRNA Emergent airway documentation: Risks [...] Planned trial extubation: yes us Shaan Roper MD DDS ANESTHESIA ORDERABLES Nola rayshawn Result * TRANSTHORACIC ECHO (TTE) COMPLETE W DOPPLER/CF WO CONTRAST (04/24/2024 9:02 AM CDT) LV EF >70 % CONS SCIMAGE Anatomical Region Laterality Modality Ultrasound 04/24/2024 8:16 AM CDT Narrative 04/24/2024 12:34 PM CDT [facility] Cardiology [address] [facility] [address], [place] [address] [address] [facility] [address], [place] [address] P:[phone] P:[phone] Echocardiographic Report Patient Name: FREIDA FERNANDO K : 1950 Study Date: 04/24/2024 8:16:15 AM Gender: F Tech: [facility] Location: [place] Ref Provider: GABY BEST Height(Cm): 163 BSA: 1.7 [...] FINDINGS: Interpretation Site: Exam was interpreted at [facility]. Left Ventricle: Normal left ventricular size. Mild [...] Note Prosper Del Angel MD - 04/24/2024 [facility] Cardiology [address] [facility] [address], [place] [address] [address], [place] [address] P:[phone] P:[phone] Echocardiographic Report Patient Name: FREIDA FERNANDO K : 1950 Study Date: 04/24/2024 8:16:15 AM Gender: F Tech: [facility] Location: [facility] Provider: GABY BEST Height(Cm): 163 BSA: 1.7 [...] FINDINGS: Interpretation Site: Exam was interpreted at [facility]. Left Ventricle: Normal left ventricular size. Mild [...] NP CV ECHO PROCEDURES Final Res ult from Last 3 Months Insurance [employer] MEDICARE HMO Advance Directives For more information, please contact: [phone] * Full Code (Latest Code Status on File) Date Activated Date Inactivated Comments 05/16/2024 1:22 PM 05/17/2024 9:10 PM Care Teams City Marshal Relationship Specialty Start Date End Date Vladimir Apple MD PCP - General Family Practice 11/27/22 Eric Mills MD [address] [place] [address] Referring Physician Internal Medicine 03/17/24
--- OUTSIDE RECORDS SUMMARY | 2024-07-25 12:10 | XMS_ITS | Clinical Summary ---
Author Organization 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 [email or web address],non-owned Affiliates and Associated Physician Practices is amultiple site organization consisting of ambulatory clinics and hospital sitesin [place], [place], [place] and [place]. This disclosure is being madepursuant to the Care Everywhere program and may not contain all information available regarding this patient. Last updated 17.[facility] [email or web address] Allergies No known active allergies Medications * [...] (one) tablet by mouth once daily Active Keota-3 Fatty Acids (fish oil) 500 MG capsule [...] 2:39 PM CDT Height 167.6 cm (5' 6) 07/25/2023 2:39 PM CDT Body Mass Index [...] patient's age to complete this topic Insurance [facility] MANAGED MEDICARE ADV Care Teams Post Tensioning Ironworker Helper Relationship Specialty Start Date End Date Vladimir Apple MD [address] [place] [phone] PCP - General Family Medicine 07/25/23
--- OUTSIDE RECORDS SUMMARY | 2024-07-25 12:10 | XMS_ITS | Referral Summary ---
Author Organization [facility] Address [address] [place] [address] Care Team Providers Care Addiction Social Worker Name Role Phone Vladimir Apple MD Primary Care Provider [phone] Eric Mills MD Unavailable [phone] Encounters Date Type Department Care Team Description 06/18/2024 Telephone [facility] Surgery [address] [place] [address] Floor 5 [place] [address] Mami Ngo RN 06/18/2024 Results Follow-Up [facility] Surgery [address] [place] [address] 5 [place] [address] Johann Becker MD Basic metabolic panel, PTH, eGFR 06/18/2024 9:00 AM CDT Lab [facility] Lab [address] [place] [address] Hyperparathyroidism 06/11/2024 2:00 PM CDT Office Visit [facility] Cardiology [address] [facility] [address] [place] [phone] Propser Del Angel MD Aneurysm of ascending aorta without rupture (Primary Dx); Nonrheumatic aortic (valve) insufficiency; Essential hypertension; Hypercholesteremia 06/05/2024 Telephone [facility] Surgery [address] [place] [address] Floor 8 [place] [address] Johann Becker MD 06/04/2024 Telephone [facility] Surgery [address] [place] [address] Floor 5 [place] [address] Mami Ngo RN 06/04/2024 Orders Only [facility] Surgery [address] [place] [address] 5 [place] [phone] Mami Ngo RN Hyperparathyroidism (Primary Dx) 06/03/2024 Results Follow-Up [facility] Surgery [address] [place] [address] 5 [place] [address] Johann Becker MD Basic metabolic panel, PTH, eGFR 06/02/2024 4:15 PM CDT Lab [facility] - [facility] Collection [address] [place] [address] Floor 5 [place] [address] Hyperparathyroidism 06/02/2024 3:00 PM CDT Office Visit [facility] Surgery [address] [place] [phone] Johann Becker MD Hyperparathyroidism (Primary Dx) 05/22/2024 Results Follow-Up [facility] Oncology [address] [place] [phone] Johann Becker MD Surgical pathology 05/16/2024 7:53 AM CDT - 05/17/2024 5:05 PM CDT Hospital [address] [address] Johann Becker MD Hyperparathyroidism Discharge Disposition: Discharge to home or self care 05/16/2024 10:50 AM CDT - 05/16/2024 1:05 PM CDT Surgery [facility] Operating Room [facility] [address] [place] [address] Johann Becker MD Neck exploration, 3.5 gland parathyroidectomy 05/16/2024 10:47 AM CDT Anesthesia Event [facility] Operating Room [facility] [address] [place] [address] Shaan Roper MD DDS Gardner, Kari Elizabeth, NP 05/15/2024 Telephone [facility] Surgery [address] [place] [phone] Mami Ngo RN 05/15/2024 Telephone [facility] Surgery [address] [facility] Floor 8 [place] [address] Johann Becker MD Medical Question/Miscellaneous 04/24/2024 8:15 AM CDT Ancillary Procedure [facility] Cardiology [address] [place] [address] Nonrheumatic aortic (valve) insufficiency from Last 3 Months Allergies No known [...] on file 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 Gender Identity Not on file Sexual Orientation [...] on file Medical Devices Explanted Type 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 Archivist [employer] Device Identifier Shelf Expiration Date Model / Serial / Lot Parathyroid Tissue - Rlp Explanted:Qty: 1 on 05/16/2024 by Johann Becker MD at [facility] Right: Neck Other 05/30/2024 N/A / / Parathyroid Tissue - Lup Explanted:Qty: 1 on 05/16/2024 by Johann Becker MD at [facility] Left: Neck Other 05/30/2024 N/A / [...] Routine 05/16/2024 11:48 AM CDT Hyperparathyroidis m UT AN PROCEDURE PLACEHOLDER Routine 05/16/2024 11:46 AM CDT UT AN ELECTIVE ENDOTRACHEAL AIRWAY Routine 05/16/2024 11:46 [...] ORDERABLES Fi nal Result Performing Organization Address [facility] de Phone Number [address] [address] * PTH (06/18/2024 9:12 AM CDT) [facility] PTH 27 15 - 65 pg/mL Blood 06/18/2024 9:12 AM CDT 06/18/2024 9:26 AM CDT Johann Becker MD LAB BLOOD ORDERABLES Fi nal Result Performing Organization Address [facility] de Phone Number [address] [address] * (ABNORMAL) Basic metabolic panel (06/18/2024 9:12 AM CDT) Pathologist [facility] Sodium 133(L) 135 - 145 mmol/L Potassium, pl 4.5 3.3 - 4.9 mmol/L [facility] Chloride 97 97 - 110 mmol/L [facility] CO2 25 22 - 32 mmol/L [facility] Anion gap 11 2 - 15 mmol/L [facility] BUN 22 6 - 25 mg/dL [facility] Creatinine 1.32(H) 0.60 - 1.10 mg/dL [facility] Glucose 97 70 - 199 mg/dL [facility] Comment: Interpretive Data Fasting glucose >/= 126 [...] 2022. Calcium 9.5 8.5 - 10.3 mg/dL [facility] Blood 06/18/2024 9:12 AM CDT 06/18/2024 9:26 AM CDT us Johann Becker MD LAB BLOOD ORDERABLES Fi nal Result LYNDA [address] [facility] [place] [address] * POCT lipid panel (06/11/2024 2:02 PM [...] Angel MD POINT OF CARE TEST ORDE RABLES Final Result * (ABNORMAL) eGFR (06/02/2024 4:12 [...] of Race in Diagnosing Kidney Disease, JASN 202). The CKD-EPI equation should not be used for patients with unstable renal function and has not been validated in children and those over 70. Current interpretive data was last reviewed 2020. Blood 06/02/2024 4:12 PM CDT 06/02/2024 4:40 PM CDT Genoveva Reynaga MD LAB BLOOD ORDERABLES Final Result Performing Organization Address City/[facility]/ZIP Co de Phone Number [facility] [place] [address] * PTH (06/02/2024 4:12 PM CDT) PTH 18 15 - 65 pg/mL Blood 06/02/2024 4:12 PM CDT 06/02/2024 6:11 PM CDT us Genoveva Reynaga MD LAB BLOOD ORDERABLES Final Result Performing Organization Address City/[facility] Co de Phone Number [facility] [place] [address] * (ABNORMAL) Basic metabolic panel (06/02/2024 4:12 PM CDT) Sodium 136 135 - 145 mmol/L Potassium, pl 4.6 3.3 - 4.9 mmol/L [facility] Chloride 95(L) 97 - 110 mmol/L [facility] CO2 28 22 - 32 mmol/L [facility] Anion gap 13 2 - 15 mmol/L [facility] BUN 27(H) 6 - 25 mg/dL [facility] Creatinine 1.42(H) 0.60 - 1.10 mg/dL [facility] Glucose 97 70 - 199 mg/dL [facility] Comment: Interpretive Data Fasting glucose >/= 126 [...] 2022. Calcium 11.1(H) 8.5 - 10.3 mg/dL [facility] Blood 06/02/2024 4:12 PM CDT 06/02/2024 4:32 PM CDT Genoveva Reynaga MD LAB BLOOD ORDERABLES Final Result Performing Organization Address City/[facility] Co de Phone Number [facility] [place] [address] * Calcium, ionized (05/17/2024 3:57 AM CDT) Calcium, Ionized 4.89 4.50 - 5.10 mg/dL Blood 05/17/2024 3:57 AM CDT 05/17/2024 4:17 AM CDT Johann Becker MD LAB BLOOD ORDERABLES Fi nal Result Performing Organization Address [facility] Co de Phone Number [facility] Department [place] [address] * (ABNORMAL) PTH (05/17/2024 3:57 AM CDT) PTH 11(L) 15 - 65 pg/mL Blood 05/17/2024 3:57 AM CDT 05/17/2024 4:31 AM CDT Johann Becker MD LAB BLOOD ORDERABLES Fi nal Result Performing Organization Address [facility] Co de Phone Number [facility] Department [place] [address] * (ABNORMAL) PTH (05/16/2024 7:21 PM CDT) PTH 14(L) 15 - 65 pg/mL Blood 05/16/2024 7:21 PM CDT 05/16/2024 8:21 PM CDT Johann Becker MD LAB BLOOD ORDERABLES Fi nal Result Performing Organization Address City/[facility] Co de Phone Number [facility] [place] [address] * (ABNORMAL) Calcium level (05/16/2024 7:21 PM CDT) Calcium 10.9(H) 8.5 - 10.3 mg/dL Blood 05/16/2024 7:21 PM CDT 05/16/2024 8:21 PM CDT Johann Becker MD LAB BLOOD ORDERABLES Fi nal Result Performing Organization Address [facility] Co de Phone Number [facility] [place] [address] * (ABNORMAL) Calcium, ionized (05/16/2024 4:24 PM CDT) Calcium, Ionized 5.54(H) 4.50 - 5.10 mg/dL Blood 05/16/2024 4:24 PM CDT 05/16/2024 4:40 PM CDT Johann Becker MD LAB BLOOD ORDERABLES Fi nal Result Performing Organization Address [facility] Co de Phone Number [facility] [place] [address] * PTH (05/16/2024 4:24 PM CDT) PTH 19 15 - 65 pg/mL Blood 05/16/2024 4:24 PM CDT 05/16/2024 4:44 PM CDT Johann Becker MD LAB BLOOD ORDERABLES Fi nal Result Performing Organization Address [facility] Co de Phone Number [facility] [place] [address] * (ABNORMAL) PTH (05/16/2024 12:00 PM CDT) PTH 208(H) 15 - 65 pg/mL Comment:Intra-operative spec imen. Telephone report made to Karen Del Angel RN on 05/16/2024 12:24:57 CDT by DLB. Blood 05/16/2024 12:0 0 PM CDT 05/16/2024 12:08 PM CDT us Johann Becker MD LAB BLOOD ORDERABLES Fi nal Result Performing Organization Address [facility] [place] [address] * (ABNORMAL) PTH (05/16/2024 11:54 AM CDT) PTH 240(H) 15 - 65 pg/mL Comment:Intra-operative spec imen. Telephone report made to Karen Del Angel RN on 05/16/2024 12:19:18 CDT by DLB. Blood 05/16/2024 11:5 4 AM CDT 05/16/2024 12:04 PM CDT Johann Becker MD LAB BLOOD ORDERABLES Fi nal Result Performing Organization Address City/[facility] Co de Phone Number [facility] [place] [address] * (ABNORMAL) PTH (05/16/2024 11:51 AM CDT) PTH 329(H) 15 - 65 pg/mL Comment:Intra-operative spec imen. Telephone report made to Karen Del Angel RN on 05/16/2024 12:19:18 CDT by LORENE. Blood 05/16/2024 11:5 1 AM CDT 05/16/2024 12:04 PM CDT Johann Becker MD LAB BLOOD ORDERABLES Fi nal Result [facility] Department [place] [address] * Surgical pathology (05/16/2024 11:48 AM CDT) Tissue (Parathyroid Gland) 05/16/2024 11:48 AM CDT Tissue specimen (specimen) (Parathyroid Gland) 05/16/2024 12:09 PM CDT Tissue specimen (specimen) (Parathyroid Gland) 05/16/2024 12:23 PM CDT Tissue specimen (specimen) (Parathyroid Gland) 05/16/2024 12:27 PM CDT Narrative PATHOLOGY [facility] - 05/22/2024 4:34 PM CDT EPIC results best viewed via link to PDF [facility] [place] [address] Note to Patients: This report may contain [...] Gender: F : 1950 (Age: 74) Address: [address] [place] [address] [facility] #: [id number] Taken:05/16/2024 Received:05/16/2024 Reported: 05/22/2024 Patient Type: [facility] OP In Bed Service: Surgery Location: [place] [address] Physician(s): Salina Mcpherson M.D. Diagnosis: A. Parathyroid, [...] Gonzalez M.D., Ph.D., Damion Diaz MS, PA ([facility])CM BFR1: Left upper parathyroid - Parathyroid tissue present By Salomon Small M.D., Matt Gonzalez M.D., Ph.D., Damion Diaz MS, PA ([facility])CM CFR1: Right upper parathyroid - Parathyroid tissue present By Salomon Small M.D., Matt Gonzalez M.D., Ph.D., Damion Diaz MS, PA ([facility])CM DFR1: Right lower parathyroid - Parathyroid tissue present By Salomon Small M.D., Matt Gonzalez M.D., Ph.D., Damion Diaz MS, PA ([facility])CM Gross Consultation A: Left lower parathyroid Received fresh is a piece of ruiz-pink tissue measuring 1.0 x 0.5 x 0.5 and 0.21 g, submitted in toto and labeled AFR1. By Salomon Small M.D., Matt Gonzalez M.D., Ph.D., Damion Diaz MS, PA ([facility] B: Left upper parathyroid Received fresh is a piece of ruiz-pink tissue measuring 0.9 x 0.8 x 0.3 and 0.18 g, submitted in toto and labeled BFR1. By Salomon Small M.D., Matt Gonzalez M.D., Ph.D., Damion Diaz MS, MS ([facility] C: Right upper parathyroid Received fresh is a piece of ruiz-pink tissue measuring 0.2 x 0.2 x 0.1 and less than 0.1 g, submitted in toto and labeled CFR1. By Salomon Small M.D., Matt Gonzalez M.D., Ph.D., Damion Diaz MS, MS ([facility] D: Right lower parathyroid Received fresh is a piece of ruiz-pink tissue measuring 0.3 x 0.2 x 0.1 and less than 0.1 g, submitted in toto and labeled DFR1. By Salomon Small M.D., Matt Gonzalez M.D., Ph.D., Damion Diaz MS, MS ([facility] I personally examined the relevant preparation(s) or [...] /05/19/2024 11:24 PA(s): Mallorie Burns, MS, PA ([facility])CM By this signature, I attest that the above diagnosis is based upon my personal examination of the slides(and/or other material). Addenda/Procedures The performance characteristics of some immunohistochemical stains, fluorescence in-situ hybridization tests and immunophenotyping by flow cytometry cited in this report (if any) were determined by the Surgical Pathology and Flow Cytometry Departments at [facility] as part of an ongoing food quality technician program and in compliance with federally mandated [...] Surgical Pathology and Flow Cytometry Departments of [facility]. It has not been cleared or approved by the U. S. Food and Drug Administration. IMAGES AND SCANNED DOCUMENTS, IF INCLUDED, ONLY VIEWABLE IN PDF VERSION OF REPORT us Johann Becker MD LAB PATHOLOGY ORDERABLE S Final Result PATHOLOGY [facility] 3rd Floor [place], [place] [phone] * UT AN ELECTIVE ENDOTRACHEAL AIRWAY, UT AN PROCEDURE PLACEHOLDER (05/16/2024 11:46 AM CDT) Narrative Shaan Roper MD DDS - 05/16/2024 11:46 AM CDT Shaan Roper MD DDS 05/16/2024 11:59 AM Airway Patient location: OR Urgency: elective Date/time: 05/16/2024 11:00 AM Indications for airway management: anesthesia Difficult airway: no Staff: Placed by: CABLE FERRY OPERATOR: Michelle Falk CRNA Emergent airway documentation: Risks [...] none Planned trial extubation: yes Shaan Roper MD DDS ANESTHESIA ORDERABLES Nola tabares Result * TRANSTHORACIC ECHO (TTE) COMPLETE W DOPPLER/CF WO CONTRAST (04/24/2024 9:02 AM CDT) LV EF >70 % CONS SCIMAGE Anatomical Region Laterality Modality Ultrasound 04/24/2024 8:16 AM CDT Narrative 04/24/2024 12:34 PM CDT [facility] Cardiology [address] [facility] [address] [address] [address] [facility] [address], [place] [address] P:[phone] P:[phone] Echocardiographic Report Patient Name: FREIDA FERNANDO K : 1950 Study Date: 04/24/2024 8:16:15 AM Gender: F Tech: ARNULFO Location: [place] Ref Provider: GABY BEST Height(Cm): 163 BSA: [...] FINDINGS: Interpretation Site: Exam was interpreted at [facility]. Left Ventricle: Normal left ventricular size. [...] Note Prosper Del Angel MD - 04/24/2024 [facility] Cardiology [address] [facility] [address], [place] [address] [address] [facility] [id number], [place] [address] P:[phone] P:[phone] Echocardiographic Report Patient Name: FREIDA FERNANDO K : 1950 Study Date: 04/24/2024 8:16:15 AM Gender: F Tech: [facility] Location: [facility] Provider: GABY BEST Height(Cm): 163 BSA: [...] FINDINGS: Interpretation Site: Exam was interpreted at [facility]. Left Ventricle: Normal left ventricular size. [...] ult from Last 3 Months Insurance [employer]ICE [employer]ICARE PPO [employer] MED[employer] HMO Advance Directives For more information, please contact: [phone] * Full Code (Latest Code Status on File) Date Activated Date Inactivated Comments 05/16/2024 1:22 PM 05/17/2024 9:10 PM Care Teams Addiction Social Worker Relationship Specialty Start Date End Date Vladimir Apple MD PCP - General Family Practice 11/27/22 Eric Mills MD [address] [place] [address] Referring Physician Internal Medicine 03/17/24
--- OUTSIDE RECORDS SUMMARY | 2024-07-25 12:10 | XMS_ITS | Encounter Summary ---
Author Organization [facility] Address [address] [place] [address] Phone Care Team Providers Care Scow Derrick Operator Name Role Phone Vladimir Apple MD Primary Care Provider [phone] Eric Mills MD Unavailable [phone] Encounter Details Date Type Department Care Team (Late st Contact Info) Description 06/18/2024 Results Follow-Up [facility] Surgery [address] [facility] Floor 5 [place] [address] Johann Becker MD [address] [place] [phone] Basic metabolic panel, PTH, eGFR Social History Tobacco Use Types Packs/Day Years [...] on file 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
--- OUTSIDE RECORDS SUMMARY | 2024-07-25 12:10 | XMS_ITS | Encounter Summary ---
Author Organization [facility] Address [address] [place] [address] Phone Care Team Providers Care Forklift Material Handler Name Role Phone Vladimir Apple MD Primary Care Provider [phone] Eric Mills MD Unavailable [phone] Encounter Details Date Type Department Care Team (Late st Contact Info) Description 06/03/2024 Results Follow-Up [facility] Surgery [address] [facility] Floor 5 [place] [address] Johann Becker MD [address] [place] [phone] Basic metabolic panel, PTH, eGFR Social [...] on file 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
--- OUTSIDE RECORDS SUMMARY | 2024-07-25 12:10 | XMS_ITS | Data Portability ---
Author Organization [facility] Storefront, Main Office Address [address] [place] [address] Care Team Providers Care Mud Cleaner Operator Name Role Phone RUFINOREJI Primary Care Provider Assessment No assessment recorded. Plan of Treatment Reminders Order Date Submit Date Provider Last Modified By Organization Details Last Modified Time Details Appointments None recorded. Lab vitamin D, 25-hydroxy , total, serum [address] (Lab), [address] [place] [address], [address], 3 14:31:31 CMP, serum or plasma [address] (Lab), [address] [place] [address], [address], 3 14:31:32 phosphorus , serum or plasma [address] (Lab), [address] [place] [address], [address], 3 14:31:32 PTH (parathyro id hormone), intact + calcium, serum or plasma [address] (Lab), [address] [place] [address], [address], 3 14:31:32 TSH + free T4, serum [address] (Lab), [address] [place] [address], [address], 3 14:31:31 T3, free, serum or plasma [address] (Lab), [address], [place], [address], 3 14:31:32 Referral ENT surgery referral - Needs parathyroi d surgeon; has osteoporos is of hips bilaterall y; calcium under 11 mg/dL only because we have her on cinacalcet 2022 023 [facility], [address], [address], [place], [address], 3 14:40:32 Procedures None recorded. Surgeries None recorded. Imaging SPECT-CT, parathyroi d 2022 023 [email or web address] [facility] Radiology Special Procedures Only, [address] [facility] , [place], [address], 3 14:34:24 Medication Orders None recorded. Patient [...] 02/28/2022 DEXA No observ ation record ed. [id number] [facility] [address], [place], [address], 04/12/2022 04:52:32 Result Notes None recorded. Problems Name Problem SNOMED Code Status Onset Date Resolution Date Notes Provider Name and Address Organization Details Recorded Time Hyperparathyr oidism 90180533 Active 2022 Christen Deluna MD [address], [facility] [address], [place], [address] , [facility] linked[employer] 3 14:20:41 Postmenopausa l osteoporosis 712364799 Active 2022 Christen Deluna MD [address] [facility], [facility] [address], [place], [address] , [facility] Storefront 3 14:26:33 Primary hyperparathyr oidism 17771797 Active 2021 Not Available [facility] 3 04:46:11 Impaired fasting glycemia 762077514 Active 2021 Not Available [facility] 3 04:46:11 Hypothyroidis m 59202296 Active 2021 Not Available [facility] 3 04:46:11 Problem Notes None recorded. Medical Equipment None Reported. [...] Available Not Available Not Available Fluzone High-Dose (PF) 180 mcg/0.5 mL intramuscul ar syringe TO BE ADMINISTE RED BY PHARMACIS T FOR IMMUNIZAT ION 04/26 completed Not Available Not Available Not Available Fluad Quad (6 5yr up)(PF) 60 mcg (15 mcg x 4)/0.5mL IM syringe PHARMACY ADMINISTE RED 04/26 completed Not Available Not Available Not Available Vitals Date Recorded Body height Body mass index (BMI) Body weight Body temperature Heart rate Systolic blood pressure Diastolic blood pressure Provider Name and Address Organization Details Last Updated DateTime 3 168.91 cm 21.6 kg/m2 79419.5 6 g 97.6 [degF] 63 /min 130 mm[Hg] 84 mm[Hg] Fatoumata Cortez CMA [place] [facility] [place] [employer] 3 14:05:27 Date Recorded Body mass index (BMI) Body height Oxygen saturation Oxygen saturation in Arterial blood by Pulse oximetry Heart rate Body temperature Body weight Systolic blood pressure Diastolic blood pressure Provider Name and Address Organization Details Last Updated DateTime 1 21.3 kg/m2 168.91 cm 98 % 98 % 58 /min 98.4 [degF] 98619.3 8 g 100 mm[Hg] 62 mm[Hg] Not Available [facility], [facility]–1983 3 04:44:54 Date Recorded Body mass index (BMI) Body height Oxygen saturation Oxygen saturation in Arterial blood by Pulse oximetry Heart rate Body temperature Body weight Systolic blood pressure Diastolic blood pressure Provider Name and Address Organization Details Last Updated DateTime 1 21.6 kg/m2 168.91 cm 98 % 98 % 53 /min 98.3 [degF] 02785.5 6 g 128 mm[Hg] 70 mm[Hg] Not Available [facility], [facility]–1983 3 04:44:54 Date Recorded Body mass index (BMI) Body height Oxygen saturation Oxygen saturation in Arterial blood by Pulse oximetry Heart rate Body temperature Body weight Systolic blood pressure Diastolic blood pressure Provider Name and Address Organization Details Last Updated DateTime 2 20.3 kg/m2 168.91 cm 98 % 98 % 60 /min 97.6 [degF] 83876.1 g 118 mm[Hg] 80 mm[Hg] Not Available [facility], [facility]–1983 3 04:44:54 Social History Question Answer Notes LastModified by [employer] Details LastModified Time Tobacco Smoking Status Never Smoker Not Available [facility], [facility] 04/12/2022 04:30:16 What Is Your Level Of Caffeine Consumption? Moderate [id number] Information not available 04/12/2022 How Much Tobacco Do You Chew? None [id number] Information not available 04/12/2022 In The 14 Days Before Symptom Onset, Have You Had Close Contact With A Laboratory-confirm ed COVID-19 While That Case Was Ill? No [id number] Information not available 04/12/2022 In The 14 Days Before Symptom Onset, Have You Had Close Contact With A Person Who Is Under Investigation For COVID-19 While That Person Was Ill? No [id number] Information not available 04/12/2022 Which Illicit Or Recreational Drugs Have You Used? None [id number] Information not available 04/12/2022 What Is Your Relationship Status? [id number] Information not available 04/12/2022 Sex: Unknown Functional Status Question Answer Note LastModified by [employer] Details LastModified Time What is your level of alcohol consumption? None [id number] Information not available 04/12/2022 Do you or have you ever used e-cigarettes or vape? Never used electronic cigarettes [id number] Information not available 04/12/2022 Mental Status None recorded. Family History Nothing Reported. Medical History Condition Response HYPERTHYROIDISM Y HYPERTENSION Y Gynecological HistoryNo gynecological history recorded. Obstetrics History GPAL:G 0 P 0 0 0 0 Past Encounters Encounter ID Performer Location Encounter Start Date Encounter Closed Date Diagnosis/Indication Diagnosis SNOMED-CT Code Diagnosis ICD10 Code Diagnosis Note [id number] Christen Deluna MD [facility] [place] [address] [place] [address] 05/25/2020 00:00:00 05/25/2020 15:40:32 [id number] Christen Deluna MD [facility] [place] [address] [place] [address] 11/23/2020 00:00:00 11/23/2020 16:42:54 [id number] [facility] [place] [address] [place], [place] [address] 11/25/2021 00:00:00 11/25/2021 17:16:15 [id number] Christen Deluna MD [facility] [place] [address] [place], [place] [address] 04/26/2022 13:57:01 04/26/2022 14:34:24 Hyperparathyroidism 84478575 E21.3 Last serum calcium of 11.3 mg/dL- [...] to above 11 to 11.5 mg/dL or higher(whi ch is does if not taking cinacalcet ) [...] scan for localizati on. Postmenopa usal osteoporosis 378322914 M81.0 She has finding of aggressive hyperparat hyroidism- due to this finding she should consider undergoing parathyroi dectomy-re ferral to ENT made and will discuss prolia injections following parathyroi dectomy- will need to d/c cinacalcet due to risk for hypocalcem ia in combinatio n with prolia injections . Hypothyroidism 17234454 E03.9 TSH and FT4 in ideal range- [...] she chooses to go outside of the [facility] system to obtain labwork she was [...] Recorded Advance Directives Directive None Recorded Payers Insurance Date Sequence Insurance Name Policy Number Policy Young Covered Member ID Young Member ID Guarantor Name 03/16/2023 1 [facility] (MEDICARE REPLACEMENT/A DVANTAGE - HMO) [id number] Freida [place] [id number] Freida [place] Notes Date Note Type Note [...] 64.7 ng/mLALT 47 U/L Christen Deluna MD [address] [place] [address], [facility] [address], [place], [address], [place] [employer] [facility] 04/26/2022 14:37:42 OBGyn Episode No OBEpisode recorded.
[2024-07-25 13:28] LABS: Anion Gap 10 mmol/L (4-12); Blood Urea Nitrogen 24 mg/dL (7-17); Calcium 9.9 mg/dL (8.4-10.2); Carbon Dioxide 26 mmol/L (22-30); Chloride 98 mmol/L (98-107); Estimated Glomerular Filt Rate 41; Glucose 105 mg/dL (65-110); Potassium 4.2 mmol/L (3.4-5.0); Sodium 134 mmol/L (137-145)
[2024-07-26 13:19] LABS: Ionized Calcium 5.1 mg/dL (4.7-5.5)
== END 2024-07-25 12:08 | disposition home or self-care (01) ==
PROVIDERS: PCP Family Medicine; Visit Provider Internal Medicine
DX: E78.2 Mixed hyperlipidemia (principal); E03.9 Hypothyroidism, unspecified; E21.3 Hyperparathyroidism, unspecified; M81.0 Age-related osteoporosis without current pathological fracture; I12.9 Hypertensive chronic kidney disease with stage 1 through stage 4 chronic kidney disease, or unspecified chronic kidney disease; E04.1 Nontoxic single thyroid nodule; N18.9 Chronic kidney disease, unspecified
CPT/HCPCS: 36415; 80048; 82330; 83735; 83970; 84100

== ENCOUNTER 2024-08-14 10:46 | Outpatient (CLI) | payer MEDICARE, SELFPAY ==
--- OUTSIDE RECORDS SUMMARY | 2024-08-14 10:49 | XMS_ITS | Encounter Summary ---
Author Organization [facility] Address [address] [facility] [address] [place] [address] Care Team Providers Care Encapsulator Name Role Phone Javed Chaudhary MD Primary Care Provider [phone] Lion Crane DO Primary Care Provider [phone] Vladimir Apple MD Primary Care Provider [phone] Eric Mills MD Unavailable Encounter Details Date Type Department Care Team (Late st Contact Info) Description 05/23/2016 Orders Only [facility] ProviderCristopher MD [address] [place] [address] Social History Tobacco Use Types Packs/Day Years Used Date Smoking Tobacco: Never Alcohol Use Standard Drinks/Week Comments Yes 0 (1 standard drink = 0.6 oz pur e alcohol) Comments Unknown Sex and Gender Information Value Date Recorded Sex Assigned at Not on file Legal Sex 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 Gender Identity Not on file Sexual [...] on filedocumented in this encounter Care Teams Encapsulator Relationship Specialty Start Date End Date Javed Chaudhary MD [address] [place] [address] PCP - General 05/12/16 07/16/18 Lion Crane DO [address] [place] [address] PCP - General Internal Medicine 07/17/18 11/26/22 Vladimir Apple MD [address] [place] [address] PCP - General Family Practice 11/27/22 Eric Mills MD [address] [facility] [address] [place] [address] Referring Physician Internal Medicine 03/17/24 documented as of this encounter
--- OUTSIDE RECORDS SUMMARY | 2024-08-14 10:49 | XMS_ITS | Clinical Summary ---
Author Organization [facility] Address [address] [place] [address] Care Team Providers Care Survey Interviewer Name Role Phone Vladimir Apple MD Primary Care Provider [phone] Source Comments [facility],non-owned Affiliates and Associated Physician Practices is amultiple site organization consisting of ambulatory clinics and hospital sitesin [place], [place], [place] and [place]. This disclosure is being madepursuant to the Care Everywhere program and may not contain all information available regarding this patient. Last updated 17.[facility] Allergies No known active allergies Medications * [...] (one) tablet by mouth once daily Active [employer]-3 Fatty Acids (fish oil) 500 MG capsule [...] patient's age to complete this topic Insurance [facility] MANAGED MEDICARE ADV Care Teams Survey Interviewer Relationship Specialty Start Date End Date Vladimir Apple MD [address] [place] [address] PCP - General Family Medicine 07/25/23
--- OUTSIDE RECORDS SUMMARY | 2024-08-14 10:49 | XMS_ITS | Clinical Summary ---
Author Organization [facility] Address [address] [place] [address] Care Team Providers Care Distillery Miller Name Role Phone Vladimir Apple MD Primary Care Provider [phone] Eric Mills MD Unavailable [phone] Allergies No known active allergies Medications cholecalciferol [...] daily 30 tablet 11 08/01/19 24 Active multivitamin tablet Take 1 tablet [...] (eight) hours 90 tablet 1 05/18/19 25 Active oxyCODONE (ROXICODONE) 5 mg immediate release tabletIndication s:Pain Take 1 tablet (5 mg total) by mouth every 4 (four) hours as needed for pain for up to 6 doses 6 tablet 05/18/19 25 Active spironolactone-h ydroCHLOROthiazi de (ALDACTAZIDE) 25-25 mg per tabletIndication s:Primary hypertension TAKE 1 TABLET BY MOUTH EVERY DAY 90 tablet 3 08/05/19 25 Active spironolactone-h ydroCHLOROthiazi de (ALDACTAZIDE) 25-25 mg per tabletIndication s:Primary hypertension TAKE 1 TABLET BY MOUTH EVERY DAY 90 tablet 3 08/20/19 24 025 Discontinued Active Problems Problem Noted Date Diagnosed Date HPTH (hyperparathyroidism) 05/16/2024 Hyperparathyroidism 04/17/2024 Nonrheumatic aortic (valve) insufficiency 2017 Aneurysm, ascending aorta 07/23/2017 Essential hypertension 07/23/2017 Hypercholesteremia 07/23/2017 Myalgia 07/23/2017 Encounters Date Type Department Care Team Description 06/18/2024 9:00 AM CDT Lab [facility] Lab [address] [place] [address] Hyperparathyroidism 06/18/2024 Telephone [facility] Surgery [address] [place] [address] 5 [place] [address] Mami Ngo RN 06/18/2024 Results Follow-Up [facility] Surgery [address] [place] [address] 5 [place] [address] Johann Becker MD Basic metabolic panel, PTH, eGFR 06/11/2024 2:00 PM CDT Office Visit [facility] Cardiology [address] [place] [address] [place] [phone] Prosper Del Angel MD Aneurysm of ascending aorta without rupture (Primary Dx); Nonrheumatic aortic (valve) insufficiency; Essential hypertension; Hypercholesteremia 06/05/2024 Telephone [facility] Surgery [address] [place] [address] 8 [place] [phone] Johann Becker MD 06/04/2024 Telephone [facility] Surgery [address] [place] [address] 5 [place] [address] Mami Ngo RN 06/04/2024 Orders Only [facility] Surgery [address] [place] [phone] Mami Ngo RN Hyperparathyroidism (Primary Dx) 06/03/2024 Results Follow-Up [facility] Surgery [address] [place] [phone] Johann Becker MD Basic metabolic panel, PTH, eGFR 06/02/2024 4:15 PM CDT Lab [facility] - [facility] Collection [address] [place] [address] 5 [place] [address] Hyperparathyroidism 06/02/2024 3:00 PM CDT Office Visit [facility] Surgery [address] [place] [phone] Johann Becker MD Hyperparathyroidism (Primary Dx) 05/22/2024 Results Follow-Up [facility] Oncology [address] [place] [phone] Johann Becker MD Surgical pathology 05/16/2024 10:50 AM CDT - 05/16/2024 1:05 PM CDT Surgery [facility] Operating [facility] [address] [place] [address] Johann Becker MD Neck exploration, 3.5 gland parathyroidectomy 05/16/2024 10:47 AM CDT Anesthesia Event [facility] [address] [place] [address] Shaan Roper MD DDS Gardner, Kari Elizabeth, NP 05/16/2024 7:53 AM CDT - 05/17/2024 5:05 PM CDT Hospital Encounter [facility] [address] [facility] [place] [phone] Johann Becker MD Hyperparathyroidism Discharge Disposition: Discharge to home or self care 05/15/2024 Telephone [facility] Surgery [facility] Floor 5 [place] [address] Mami Ngo RN 05/15/2024 Telephone [facility] Surgery 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 Gender Identity Not on file Sexual [...] 3) 04/10/2020 02/14/2020, 12/07 Influenza Vaccine (#1) 2024 , 11/11/2018, 11/25/2017, Additional history exists Fall Risk Assessment 05/17/2025 05/17/2024 DTaP/Tdap/Td Vaccine (2 - Td or Tdap) 10/11/2032 10/11/2022 Pneumococcal vaccine 65+ Completed 10/18/2019, 12/13 Medical Devices Explanted Type Area Director Of Publications Device Identifier Shelf Expiration Date Model / Serial / Lot Parathyroid Tissue - Rlp Explanted:Qty: 1 on 05/16/2024 by Johann Becker MD at [facility] Right: Neck Other 05/30/2024 N/A / / Parathyroid Tissue - Lup Explanted:Qty: 1 on 05/16/2024 by Johann Becker MD at [facility] Left: Neck Other 05/30/2024 N/A / / Procedures Procedure Name Priority Date/Time Associated Diagnosis Comments EGFR Routine 06/18/2024 9:12 AM CDT Hyperparathyroidi sm PTH Routine 06/18/2024 9:12 AM CDT Hyperparathyroidi sm BASIC METABOLIC PANEL Routine 06/18/2024 9:12 AM CDT Hyperparathyroidi sm POCT LIPID PANEL Routine 06/11/2024 2:02 PM CDT Hypercholesteremi a EGFR Routine 06/02/2024 4:12 PM CDT Hyperparathyroidi sm PTH Routine 06/02/2024 4:12 PM CDT Hyperparathyroidi sm BASIC METABOLIC PANEL Routine 06/02/2024 4:12 PM CDT Hyperparathyroidi sm CALCIUM, IONIZED Routine 05/17/2024 3:57 AM CDT PTH Timed 05/17/2024 3:57 AM CDT CALCIUM LEVEL Routine 05/16/2024 7:21 PM CDT PTH Timed 05/16/2024 7:21 PM CDT CALCIUM, IONIZED Timed 05/16/2024 4:24 PM CDT PTH Timed 05/16/2024 4:24 PM CDT PTH Routine 05/16/2024 12:00 PM CDT PTH Routine 05/16/2024 11:54 AM CDT PTH Routine 05/16/2024 11:51 AM CDT SURGICAL PATHOLOGY Routine 05/16/2024 11 :48 AM CDT Hyperparathyroidi sm TX AN PROCEDURE PLACEHOLDER Routine 05/16/2024 11:46 AM CDT TX AN ELECTIVE ENDOTRACHEAL AIRWAY Routine 05/16/2024 11:46 AM CDT PARATHYROIDECTOMY. 05/16/2024 10 :50 AM CDT Hyperparathyroidi sm Special Needs IntraOp PTH Monitoring and NIMS from Last 3 Months Results * (ABNORMAL) [...] LAB BLOOD ORDERABLES Fi nal Result [facility] [address] [place] [address] * PTH (06/18/2024 9:12 AM CDT) PTH 27 15 - 65 pg/mL Blood 06/18/2024 9:12 AM CDT 06/18/2024 9:26 AM CDT Johann Beckre MD LAB BLOOD ORDERABLES Fi nal Result [facility] [address] [place] [address] * (ABNORMAL) Basic metabolic panel (06/18/2024 9:12 AM CDT) [facility] Sodium 133(L) 135 - 145 mmol/L Potassium, pl 4.5 3.3 - 4.9 mmol/L [facility] Chloride 97 97 - 110 mmol/L [facility] CO2 25 22 - 32 mmol/L [facility] Anion gap 11 2 - 15 mmol/L [facility] BUN 22 6 - 25 mg/dL [facility] Creatinine 1.32(H) 0.60 - 1.10 mg/dL [facility] Glucose 97 70 - 199 mg/dL [facility] Comment: Interpretive Data Fasting glucose [...] 2022. Calcium 9.5 8.5 - 10.3 mg/dL [facility] Blood 06/18/2024 9:12 AM CDT 06/18/2024 9:26 AM CDT us Johann Becker MD LAB BLOOD ORDERABLES Fi nal Result [place] [address] [place] [address] * POCT lipid panel (06/11/2024 2:02 PM [...] Del Angel MD POINT OF CARE TEST ORDMarta HOWARD Final Result * (ABNORMAL) eGFR (06/02/2024 [...] Reynaga MD LAB BLOOD ORDERABLES Final Result [facility] Department [place] [address] * PTH (06/02/2024 4:12 PM CDT) PTH 18 15 - 65 pg/mL Blood 06/02/2024 4:12 PM CDT 06/02/2024 6:11 PM CDT Genoveva Reynaga MD LAB BLOOD ORDERABLES Final Result [facility] Department [place] [address] * (ABNORMAL) Basic metabolic panel (06/02/2024 4:12 PM CDT) Pathologist [facility] Sodium 136 135 - 145 mmol/L Potassium, pl 4.6 3.3 - 4.9 mmol/L [facility] Chloride 95(L) 97 - 110 mmol/L [facility] CO2 28 22 - 32 mmol/L [facility] Anion gap 13 2 - 15 mmol/L [facility] BUN 27(H) 6 - 25 mg/dL [facility] Creatinine 1.42(H) 0.60 - 1.10 mg/dL [facility] Glucose 97 70 - 199 mg/dL [facility] Comment: Interpretive Data Fasting glucose >/= [...] 11.1(H) 8.5 - 10.3 mg/dL [facility] Blood 06/02/2024 4:12 PM CDT 06/02/2024 4:32 PM CDT Genoveva Reynaga MD LAB BLOOD ORDERABLES Final Result Performing Organization Address [facility] [place] [address] * Calcium, ionized (05/17/2024 3:57 AM CDT) Calcium, Ionized 4.89 4.50 - 5.10 mg/dL Blood 05/17/2024 3:57 AM CDT 05/17/2024 4:17 AM CDT Johann Becker MD LAB BLOOD ORDERABLES Fi nal Result Performing Organization Address [facility] [place] [address] * (ABNORMAL) PTH (05/17/2024 3:57 AM CDT) PTH 11(L) 15 - 65 pg/mL Blood 05/17/2024 3:57 AM CDT 05/17/2024 4:31 AM CDT us Johann Becker MD LAB BLOOD ORDERABLES Fi nal Result Performing Organization Address [facility] de Phone Number [facility] [place] [address] * (ABNORMAL) PTH (05/16/2024 7:21 PM CDT) PTH 14(L) 15 - 65 pg/mL Blood 05/16/2024 7:21 PM CDT 05/16/2024 8:21 PM CDT Johann Becker MD LAB BLOOD ORDERABLES Fi nal Result Performing Organization Address [facility] Co de Phone Number [facility] [place] [address] * (ABNORMAL) Calcium level (05/16/2024 7:21 PM CDT) Calcium 10.9(H) 8.5 - 10.3 mg/dL Blood 05/16/2024 7:21 PM CDT 05/16/2024 8:21 PM CDT Johann Becker MD LAB BLOOD ORDERABLES Fi nal Result Performing Organization Address City/[facility] Co de Phone Number [facility] [place] [address] * (ABNORMAL) Calcium, ionized (05/16/2024 4:24 PM CDT) Calcium, Ionized 5.54(H) 4.50 - 5.10 mg/dL Blood 05/16/2024 4:24 PM CDT 05/16/2024 4:40 PM CDT Johann Becker MD LAB BLOOD ORDERABLES Fi nal Result Performing Organization Address [facility] Co de Phone Number [facility] [place] [address] * PTH (05/16/2024 4:24 PM CDT) PTH 19 15 - 65 pg/mL Blood 05/16/2024 4:24 PM CDT 05/16/2024 4:44 PM CDT Johann Becker MD LAB BLOOD ORDERABLES Fi nal Result Performing Organization Address City/[facility] Co de Phone Number [facility] [place] [address] * (ABNORMAL) PTH (05/16/2024 12:00 PM CDT) PTH 208(H) 15 - 65 pg/mL Comment:Intra-operative spec imen. Telephone report made to Karen Del Angel RN on 05/16/2024 12:24:57 CDT by DLB. Blood 05/16/2024 12:0 0 PM CDT 05/16/2024 12:08 PM CDT us Johann Becker MD LAB BLOOD ORDERABLES Fi nal Result Performing Organization Address City/[facility]/ZIP Co de Phone Number [facility] [place] [address] * (ABNORMAL) PTH (05/16/2024 11:54 AM CDT) PTH 240(H) 15 - 65 pg/mL Comment:Intra-operative spec imen. Telephone report made to Karen Del Angel RN on 05/16/2024 12:19:18 CDT by DLB. Blood 05/16/2024 11:5 4 AM CDT 05/16/2024 12:04 PM CDT us Johann Becker MD LAB BLOOD ORDERABLES Fi nal Result Performing Organization Address City/[facility] Co de Phone Number [facility] Department [place] [address] * (ABNORMAL) PTH (05/16/2024 11:51 AM CDT) PTH 329(H) 15 - 65 pg/mL Comment:Intra-operative spec imen. Telephone report made to Karen Del Angel RN on 05/16/2024 12:19:18 CDT by DLB. Blood 05/16/2024 11:5 1 AM CDT 05/16/2024 12:04 PM CDT Johann Becker MD LAB BLOOD ORDERABLES Fi nal Result [facility] [place] [address] * Surgical pathology (05/16/2024 11:48 AM CDT) Tissue (Parathyroid Gland) 05/16/2024 11:48 AM CDT Tissue specimen (specimen) (Parathyroid Gland) 05/16/2024 12:09 PM CDT Tissue specimen (specimen) (Parathyroid Gland) 05/16/2024 12:23 PM CDT Tissue specimen (specimen) (Parathyroid Gland) 05/16/2024 12:27 PM CDT Narrative PATHOLOGY [facility] - 05/22/2024 4:34 PM CDT EPIC results best viewed via link to PDF [facility] [place] [address] Note to Patients: This report may contain [...] Gender: F : 1950 (Age: 74) Address: [address] [place], [place] [id number] Hospital #: [id number] Taken:05/16/2024 Received:05/16/2024 Reported: 05/22/2024 Patient Type: [facility] OP In Bed Service: Surgery Location: [place] [address] Physician(s): Salina Mcpherson M.D. Diagnosis: A. Parathyroid, [...] Gonzalez M.D., Ph.D., Damion Diaz MS, PA ([facility]) BFR1: Left upper parathyroid - Parathyroid tissue present By Salomon Small M.D., Matt Gonzalez M.D., Ph.D., Damion Diaz MS, PA ([facility]) CFR1: Right upper parathyroid - Parathyroid tissue present By Salomon Small M.D., Matt Gonzalez M.D., Ph.D., Damion Diaz MS, PA ([facility]) DFR1: Right lower parathyroid - Parathyroid tissue present By Salomon Small M.D., Matt Gonzalez M.D., Ph.D., Damion Diaz MS, PA ([facility]) Gross Consultation A: Left lower parathyroid Received fresh is a piece of ruiz-pink tissue measuring 1.0 x 0.5 x 0.5 and 0.21 g, submitted in toto and labeled AFR1. By Salomon Small M.D., Matt Gonzalez M.D., Ph.D., Damion Diaz MS, PA ([facility]) B: Left upper parathyroid Received fresh is a piece of ruiz-pink tissue measuring 0.9 x 0.8 x 0.3 and 0.18 g, submitted in toto and labeled BFR1. By Salomon Small M.D., Matt Gonzalez M.D., Ph.D., Damion Diaz MS, PA ([facility]) C: Right upper parathyroid Received fresh is a piece of ruiz-pink tissue measuring 0.2 x 0.2 x 0.1 and less than 0.1 g, submitted in toto and labeled CFR1. By Salomon Small M.D., Matt Gonzalez M.D., Ph.D., Damion Diaz MS, PA ([facility]) D: Right lower parathyroid Received fresh is a piece of ruiz-pink tissue measuring 0.3 x 0.2 x 0.1 and less than 0.1 g, submitted in toto and labeled DFR1. By Salomon Small M.D., Matt Gonzalez M.D., Ph.D., Damion Diaz MS, FARAZ ([facility]) I personally examined the relevant preparation(s) or [...] DFR1. Jar 0. 05/19/2024 11:24 PA(s): Mallorie Burns, MS, PA ([facility]) By this signature, I attest that the above diagnosis is based upon my personal examination of the slides(and/or other material). Addenda/Procedures The performance characteristics of some immunohistochemical stains, fluorescence in-situ hybridization tests and immunophenotyping by flow cytometry cited in this report (if any) were determined by the Surgical Pathology and Flow Cytometry Departments at [facility] as part of an ongoing cloth tester quality program and in compliance with federally mandated [...] Surgical Pathology and Flow Cytometry Departments of [facility]. It has not been cleared or approved by the U. S. Food and Drug Administration. IMAGES AND SCANNED DOCUMENTS, IF INCLUDED, ONLY VIEWABLE IN PDF VERSION OF REPORT Johann Becker MD LAB PATHOLOGY ORDERABLE S Final Result PATHOLOGY [facility] 3rd Floor [place], [place] [phone] * TX AN ELECTIVE ENDOTRACHEAL AIRWAY, TX AN PROCEDURE PLACEHOLDER (05/16/2024 11:46 AM CDT) Narrative Shaan Roper MD DDS - 05/16/2024 11:46 AM CDT Shaan Roper MD DDS 05/16/2024 11:59 AM Airway Patient location: OR Urgency: elective Date/time: 05/16/2024 11:00 AM Indications for airway management: anesthesia Difficult airway: no Staff: Placed by: FEEDER WORKER POWER UNIT OPERATOR: Michelle Falk CRNA Emergent airway documentation: [...] Shaan Roper MD DDS ANESTHESIA ORDERABLES Nola l Result from Last 3 Months Insurance [facility] [employer] [place] [id number] [employer] MEDICARE O Advance Directives For more information, please contact: [phone] * Full Code (Latest Code Status on File) Date Activated Date Inactivated Comments 05/16/2024 1:22 PM 05/17/2024 9:10 PM Care Teams Distillery Miller Relationship Specialty Start Date End Date Vladimir Apple MD PCP - General Family Practice 11/27/22 Eric [place] MD [address] [place] [address] Referring Physician Internal Medicine 03/17/24
--- OUTSIDE RECORDS SUMMARY | 2024-08-14 10:49 | XMS_ITS | Encounter Summary ---
Author Organization [facility] Address [address] [place] [address] Phone Care Team Providers Care Casino Runner Name Role Phone Vladimir Apple MD Primary Care Provider [phone] Eric [place] MD Unavailable [phone] Encounter Details Date Type Department Care Team (Late st Contact Info) Description 06/18/2024 Results Follow-Up [facility] Surgery [address] [facility] Floor [address] [place] [address] Johann Becker MD [address] [place] [id number] Basic metabolic panel, PTH, eGFR Social [...] on file 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
--- OUTSIDE RECORDS SUMMARY | 2024-08-14 10:49 | XMS_ITS | Referral Summary ---
Author Organization [facility] Address [address] [place] [address] Care Team Providers Care E Tailer Name Role Phone Vladimir Apple MD Primary Care Provider [phone] Eric Mills MD Unavailable [phone] Encounters Date Type Department Care Team Description 06/18/2024 Telephone [facility] Surgery [address] [place] [address] Floor 5 [place] [address] Mami Ngo RN 06/18/2024 Results Follow-Up [facility] Surgery [address] [place] [address] 5 [place] [address] Johann Becker MD Basic metabolic panel, PTH, eGFR 06/18/2024 9:00 AM CDT Lab [facility] [address] [place] [address] Hyperparathyroidism 06/11/2024 2:00 PM CDT Office Visit [facility] Cardiology [address] [facility] [address] [place] [phone] Prosper Del Angel MD Aneurysm of ascending aorta without rupture (Primary Dx); Nonrheumatic aortic (valve) insufficiency; Essential hypertension; Hypercholesteremia 06/05/2024 Telephone [facility] Surgery [address] [place] [address] Floor 8 [place] [address] Johann Becker MD 06/04/2024 Telephone [facility] Surgery [address] [place] [address] Floor 5 [place] [address] Mami Ngo RN 06/04/2024 Orders Only [facility] Surgery [address] [place] [address] 5 [place] [phone] Mami Ngo RN Hyperparathyroidism (Primary Dx) 06/03/2024 Results Follow-Up [facility] Surgery [address] [place] [address] 5 [place] [address] Johann Becker MD Basic metabolic panel, PTH, eGFR 06/02/2024 4:15 PM CDT Lab [facility] - Lab Collection [address] [place] [address] Floor 5 [place] [address] Hyperparathyroidism 06/02/2024 3:00 PM CDT Office Visit [facility] Surgery [address] [place] [phone] Johann Becker MD Hyperparathyroidism (Primary Dx) 05/22/2024 Results Follow-Up [facility] Oncology [address] [place] [phone] Johann Becker MD Surgical pathology 05/16/2024 7:53 AM CDT - 05/17/2024 5:05 PM CDT Hospital [address] [address] Johann Becker MD Hyperparathyroidism Discharge Disposition: Discharge to home or self care 05/16/2024 10:50 AM CDT - 05/16/2024 1:05 PM CDT Surgery [facility] [address] [place] [address] Johann Becker MD Neck exploration, 3.5 gland parathyroidectomy 05/16/2024 10:47 AM CDT Anesthesia Event [facility] [address] [place] [address] Shaan Roper MD DDS Gardner, Kari Elizabeth, NP 05/15/2024 Telephone [facility] Surgery [address] [place] [phone] Mami Ngo RN 05/15/2024 Telephone [facility] Surgery [address] [facility] Floor 8 [place] [address] Johann Becker MD Medical Question/Miscellaneous from Last 3 Months Allergies No known [...] on file 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 Gender Identity Not on file Sexual [...] on file Medical Devices Explanted Type Area Animal Pathology Teacher Device Identifier Shelf Expiration Date Model / Serial / Lot Parathyroid Tissue - Rlp Explanted:Qty: 1 on 05/16/2024 by Johann Becker MD at [facility] Right: Neck Other 05/30/2024 N/A / / Parathyroid Tissue - Lup Explanted:Qty: 1 on 05/16/2024 by Johann Becker MD at [facility] Left: Neck Other 05/30/2024 N/A [...] 05/16/2024 11 :48 AM CDT Hyperparathyroidi sm NC AN PROCEDURE PLACEHOLDER Routine 05/16/2024 11:46 AM CDT NC AN ELECTIVE ENDOTRACHEAL AIRWAY Routine 05/16/2024 11:46 [...] nal Result Performing Organization Address [facility] Co de Phone Number [address] [address] * PTH (06/18/2024 9:12 AM CDT) Pathologist [facility] PTH 27 15 - 65 pg/mL Blood 06/18/2024 9:12 AM CDT 06/18/2024 9:26 AM CDT Johann Becker MD LAB BLOOD ORDERABLES Fi nal Result Performing Organization Address [facility] Phone Number [address] [address] * (ABNORMAL) Basic metabolic panel (06/18/2024 9:12 AM CDT) [facility] Sodium 133(L) 135 - 145 mmol/L Potassium, pl 4.5 3.3 - 4.9 mmol/L [facility] Chloride 97 97 - 110 mmol/L [facility] CO2 25 22 - 32 mmol/L [facility] Anion gap 11 2 - 15 mmol/L [facility] BUN 22 6 - 25 mg/dL [facility] Creatinine 1.32(H) 0.60 - 1.10 mg/dL [facility] Glucose 97 70 - 199 mg/dL [facility] Comment: Interpretive Data Fasting glucose >/= [...] LAB BLOOD ORDERABLES Fi nal Result LYNDA [address] [facility] Department of Laboratories [place], [place] [id number] * POCT lipid panel (06/11/2024 2:02 PM [...] Angel MD POINT OF CARE TEST NATALI RABDELANEY Final Result * (ABNORMAL) eGFR (06/02/2024 4:12 [...] BLOOD ORDERABLES Final Result Performing Organization Address City/[facility]/ZIP Co de Phone Number [facility] [place] [address] * PTH (06/02/2024 4:12 PM CDT) Pathologist [facility] PTH 18 15 - 65 pg/mL Blood 06/02/2024 4:12 PM CDT 06/02/2024 6:11 PM CDT Genoveva Reynaga MD LAB BLOOD ORDERABLES Final Result Performing Organization Address [facility] de Phone Number [facility] [place] [address] * (ABNORMAL) Basic metabolic panel (06/02/2024 4:12 PM CDT) Pathologist [facility] Sodium 136 135 - 145 mmol/L Potassium, pl 4.6 3.3 - 4.9 mmol/L [facility] Chloride 95(L) 97 - 110 mmol/L [facility] CO2 28 22 - 32 mmol/L [facility] Anion gap 13 2 - 15 mmol/L [facility] BUN 27(H) 6 - 25 mg/dL [facility] Creatinine 1.42(H) 0.60 - 1.10 mg/dL [facility] Glucose 97 70 - 199 mg/dL [facility] Comment: Interpretive Data Fasting glucose [...] 2022. Calcium 11.1(H) 8.5 - 10.3 mg/dL [facility] Blood 06/02/2024 4:12 PM CDT 06/02/2024 4:32 PM CDT us Genoveva Reynaga MD LAB BLOOD ORDERABLES Final Result [facility] [place] [address] * Calcium, ionized (05/17/2024 3:57 AM CDT) Calcium, Ionized 4.89 4.50 - 5.10 mg/dL Blood 05/17/2024 3:57 AM CDT 05/17/2024 4:17 AM CDT us Johann Becker MD LAB BLOOD ORDERABLES Fi nal Result Performing Organization Address City/[facility] Co de Phone Number [facility] [place] [address] * (ABNORMAL) PTH (05/17/2024 3:57 AM CDT) PTH 11(L) 15 - 65 pg/mL Blood 05/17/2024 3:57 AM CDT 05/17/2024 4:31 AM CDT Johann Becker MD LAB BLOOD ORDERABLES Fi nal Result Performing Organization Address City/[facility] Co de Phone Number [facility] [place] [address] * (ABNORMAL) PTH (05/16/2024 7:21 PM CDT) PTH 14(L) 15 - 65 pg/mL Blood 05/16/2024 7:21 PM CDT 05/16/2024 8:21 PM CDT Johann Becker MD LAB BLOOD ORDERABLES Fi nal Result Performing Organization Address [facility] de Phone Number [facility] [place] [address] * (ABNORMAL) Calcium level (05/16/2024 7:21 PM CDT) Calcium 10.9(H) 8.5 - 10.3 mg/dL Blood 05/16/2024 7:21 PM CDT 05/16/2024 8:21 PM CDT Johann Becker MD LAB BLOOD ORDERABLES Fi nal Result Performing Organization Address [facility] de Phone Number [facility] [place] [employer] [place] [address] * (ABNORMAL) Calcium, ionized (05/16/2024 4:24 PM CDT) Calcium, Ionized 5.54(H) 4.50 - 5.10 mg/dL Blood 05/16/2024 4:24 PM CDT 05/16/2024 4:40 PM CDT Johann Becker MD LAB BLOOD ORDERABLES Fi nal Result Performing Organization Address [facility] [place] [address] * PTH (05/16/2024 4:24 PM CDT) PTH 19 15 - 65 pg/mL Blood 05/16/2024 4:24 PM CDT 05/16/2024 4:44 PM CDT Johann Becker MD LAB BLOOD ORDERABLES Fi nal Result Performing Organization Address [facility] Co de Phone Number [facility] [employer] [address] * (ABNORMAL) PTH (05/16/2024 12:00 PM CDT) PTH 208(H) 15 - 65 pg/mL Comment:Intra-operative spec imen. Telephone report made to Karen Del Angel RN on 05/16/2024 12:24:57 CDT by DLB. Blood 05/16/2024 12:0 0 PM CDT 05/16/2024 12:08 PM CDT us Johann Becker MD LAB BLOOD ORDERABLES Fi nal Result Performing Organization Address [facility] Co de Phone Number [facility] [place] [address] * (ABNORMAL) PTH (05/16/2024 11:54 AM CDT) PTH 240(H) 15 - 65 pg/mL Comment:Intra-operative spec imen. Telephone report made to Karen Del Angel RN on 05/16/2024 12:19:18 CDT by DLB. Blood 05/16/2024 11:5 4 AM CDT 05/16/2024 12:04 PM CDT Johann Becker MD LAB BLOOD ORDERABLES Fi nal Result Performing Organization Address [facility] Co de Phone Number [facility] [employer] [place], [place] [id number] * (ABNORMAL) PTH (05/16/2024 11:51 AM CDT) PTH 329(H) 15 - 65 pg/mL Comment:Intra-operative spec imen. Telephone report made to Karen Del Angel RN on 05/16/2024 12:19:18 CDT by LORENE. Blood 05/16/2024 11:5 1 AM CDT 05/16/2024 12:04 PM CDT us Johann Becker MD LAB BLOOD ORDERABLES Fi nal Result LYNDA [facility] Department [place] [address] * Surgical pathology (05/16/2024 11:48 AM CDT) Tissue (Parathyroid Gland) 05/16/2024 11:48 AM CDT Tissue specimen (specimen) (Parathyroid Gland) 05/16/2024 12:09 PM CDT Tissue specimen (specimen) (Parathyroid Gland) 05/16/2024 12:23 PM CDT Tissue specimen (specimen) (Parathyroid Gland) 05/16/2024 12:27 PM CDT Narrative PATHOLOGY [facility] - 05/22/2024 4:34 PM CDT EPIC results best viewed via link to PDF [facility] [place] [address] Note to Patients: This report may contain [...] Gender: F : 1950 (Age: 74) Address: [address] [place] [id number] Hospital #: [id number] Taken:05/16/2024 Received:05/16/2024 Reported: 05/22/2024 Patient Type: [facility] OP In Bed Service: Surgery Location: [place] [address] Physician(s): Johann Becker M.D. Vladimir Apple M.D. Diagnosis: A. Parathyroid, left lower, parathyroidectomy [...] Gonzalez M.D., Ph.D., Damion Diaz MS, PA ([facility]) BFR1: Left upper parathyroid - Parathyroid tissue present By Salomon Small M.D., Matt Gonzalez M.D., Ph.D., Damion Diaz MS, PA ([facility])CM CFR1: Right upper parathyroid - Parathyroid tissue present By Salomon Small M.D., Matt Gonzalez M.D., Ph.D., Damion Diaz MS, PA ([facility])CM DFR1: Right lower parathyroid - Parathyroid tissue present By Salomon Small M.D., Matt Gonzalez M.D., Ph.D., Damion Diaz MS, PA ([facility])CM Gross Consultation A: Left lower parathyroid Received fresh is a piece of ruiz-pink tissue measuring 1.0 x 0.5 x 0.5 and 0.21 g, submitted in toto and labeled AFR1. By Salomon Small M.D., Matt Gonzalez M.D., Ph.D., Damion Diaz MS, PA ([facility] B: Left upper parathyroid Received fresh is a piece of ruiz-pink tissue measuring 0.9 x 0.8 x 0.3 and 0.18 g, submitted in toto and labeled BFR1. By Saolmon Small M.D., Matt Gonzalez M.D., Ph.D., Damion Diaz MS, PA ([facility] C: Right upper parathyroid Received fresh is a piece of ruiz-pink tissue measuring 0.2 x 0.2 x 0.1 and less than 0.1 g, submitted in toto and labeled CFR1. By Salomon Small M.D., Matt Gonzalez M.D., Ph.D., Damion Diaz MS, PA ([facility] D: Right lower parathyroid Received fresh is a piece of ruiz-pink tissue measuring 0.3 x 0.2 x 0.1 and less than 0.1 g, submitted in toto and labeled DFR1. By Salomon Small M.D., Matt Gonzalez M.D., Ph.D., Damion Diaz MS, PA ([facility] I personally examined the relevant preparation(s) [...] 05/19/2024 11:24 PA(s): Mallorie Burns, MS, PA ([facility])CM By this signature, I attest that the above diagnosis is based upon my personal examination of the slides(and/or other material). Addenda/Procedures The performance characteristics of some immunohistochemical stains, fluorescence in-situ hybridization tests and immunophenotyping by flow cytometry cited in this report (if any) were determined by the Surgical Pathology and Flow Cytometry Departments at [facility] as part of an ongoing water quality control engineer program and in compliance with federally mandated [...] Surgical Pathology and Flow Cytometry Departments of [facility]. It has not been cleared or approved by the U. S. Food and Drug Administration. IMAGES AND SCANNED DOCUMENTS, IF INCLUDED, ONLY VIEWABLE IN PDF VERSION OF REPORT Johann Becker MD LAB PATHOLOGY ORDERABLE S Final Result PATHOLOGY [facility] 3rd Floor [place], [place] [phone] * NC AN ELECTIVE ENDOTRACHEAL AIRWAY, NC AN PROCEDURE PLACEHOLDER (05/16/2024 11:46 AM CDT) Narrative Shaan Roper MD DDS - 05/16/2024 11:46 AM CDT Shaan Roper MD DDS 05/16/2024 11:59 AM Airway Patient location: OR Urgency: elective Date/time: 05/16/2024 11:00 AM Indications for airway management: anesthesia Difficult airway: no Staff: Placed by: SUPERVISOR BLAST FURNACE AUXILIARIES: Michelle Falk CRNA Emergent airway documentation: Risks [...] MD DDS ANESTHESIA ORDERABLES Nola rayshawn Result from Last 3 Months Insurance [employer] MEDICARE O [employer] MEDICARE HMO Advance Directives For more information, please contact: [phone] * Full Code (Latest Code Status on File) Date Activated Date Inactivated Comments 05/16/2024 1:22 PM 05/17/2024 9:10 PM Care Teams E Tailer Relationship Specialty Start Date End Date Vladimir Apple MD PCP - General Family Practice 11/27/22 Eric Mills MD [address] [place] [address] Referring Physician Internal Medicine 03/17/24
[2024-08-14 11:48] LABS: Albumin Level 4.6 g/dL (3.5-5.1); Anion Gap 10 mmol/L (4-12); Blood Urea Nitrogen 24 mg/dL (7-17); Calcium 9.9 mg/dL (8.4-10.2); Carbon Dioxide 26 mmol/L (22-30); Chloride 95 mmol/L (98-107); Estimated Glomerular Filt Rate 49; Glucose 89 mg/dL (65-110); Potassium 4.3 mmol/L (3.4-5.0); Sodium 131 mmol/L (137-145)
[2024-08-14 14:45] LABS: Total Protein Urine Random < 5 mg/dL; Ur Ttl Prot Creatinine Ratio < 0.05 mg/mg (0-0.20)
== END 2024-08-14 10:47 | disposition home or self-care (01) ==
LOC: ANHLAB 10:47
PROVIDERS: PCP Family Medicine; Visit Provider Internal Medicine Nephrology
DX: I12.9 Hypertensive chronic kidney disease with stage 1 through stage 4 chronic kidney disease, or unspecified chronic kidney disease (principal); N18.32 Chronic kidney disease, stage 3b
CPT/HCPCS: 36415; 80069; 82570; 84156

== ENCOUNTER 2024-08-20 12:33 | Outpatient (CLI) | payer MEDICARE, SELFPAY ==
--- NOTE | ~2024-08-20 | CT_ITS ---
CLINICAL INDICATION: Aneurysm of the ascending aorta COMPARISON: 08/17/2023. TECHNIQUE: Multiple contiguous axial images of the chest was performed without the administration of intravenous contrast. This CT examination was performed utilizing dose reduction techniques. DLP: 177 mGy-cm FINDINGS/OBSERVATIONS: LUNG: The lungs are clear. HEART: The heart is of normal size, without pericardial effusion. MEDIASTINUM: No pathologically enlarged or morphologically suspicious lymph nodes are identified within the medias tinum, bilateral axilla, within the soft tissues of the anterior chest wall. Unable to adequately assess the thoracic aorta without intravenous contrast. No dedicated evaluation of mural thrombus or characterization of aneurysmal dilatation is possible wi thout the administration of intravenous contrast. The unopacified thoracic aorta is estimated to measure approximately: 4.3cm at the sinuses of Valsalva, 4.3cm at the sinotubular junction, 4.7cm in the mid ascending aorta, 3.0cm at the aortic isthmus, 2.7cm in the mid descending thoracic aorta, 2.3cm at the diaphragmatic hiatus. Of note, these are only approximate measurements as no intravenous contrast was given. SOFT TISSUES OF THE CHEST: Unremarkable. BONES OF THE CHEST: No acute fracture. No lytic or blastic lesions are identified. IMPRESSION: Noncontrast enhanced CT examination of the chest was performed to evaluate a pre-existing, known asce nding aortic aneurysm. Note, only approximately measurements of the proctor sites of the thoracic aorta were performed as adequa te evaluation of the thoracic aorta without intravenous contrast is limited, as detailed above. These measurements are roughly similar to prior studies, as these prior studies were also performed w ithout intravenous contrast, rendering the results markedly limited. In the future, CTA of the chest is suggested for adequate evaluation and to manage future follow-up. Reviewed, dictated and finalized at location A. IMPRESSION: Noncontrast enhanced CT examination of the chest was performed to evaluate a pr e-existing, known ascending aortic aneurysm. Note, only approximately measurements of the proctor sites of the thoracic aorta we re performed as adequate evaluation of the thoracic aorta without intravenous c ontrast is limited, as detailed above. These measurements are roughly similar to prior studies, as these prior studies were also performed without intravenous contrast, rendering the results marked ly limited. In the future, CTA of the chest is suggested for adequate evaluation and to man age future follow-up.
--- OUTSIDE RECORDS SUMMARY | 2024-08-20 12:38 | XMS_ITS | Encounter Summary ---
Author Organization [facility] Address [address] [facility] [address] [place] [address] Care Team Providers Care Assistant Auditor Name Role Phone Javed Chaudhary MD Primary Care Provider [phone] Lion Crane DO Primary Care Provider [phone] Vladimir Apple MD Primary Care Provider [phone] Eric Mills MD Unavailable [phone] Encounter Details Date Type Department Care Team (Late st Contact Info) Description 05/23/2016 Orders Only [facility] ProviderCristopher MD [address] [place] [address] Social History Tobacco Use Types Packs/Day Years Used Date Smoking Tobacco: Never Alcohol Use Standard Drinks/Week Comments Yes 0 (1 standard drink = 0.6 oz pur e alcohol) Comments Unknown Sex and Gender Information Value Date Recorded Sex Assigned at Not on file 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 Gender Identity Not on file Sexual [...] on filedocumented in this encounter Care Teams Assistant Auditor Relationship Specialty Start Date End Date Javed Chaudhary MD [address] [place] [address] PCP - General 05/12/16 07/16/18 Lion Crane DO [address] [place] [address] PCP - General Internal Medicine 07/17/18 11/26/22 Vladimir Apple MD [address] [place] [address] PCP - General Family Practice 11/27/22 Eric Mills MD [address] [facility] [address] [place] [address] Referring Physician Internal Medicine 03/17/24 documented as of this encounter
--- OUTSIDE RECORDS SUMMARY | 2024-08-20 12:38 | XMS_ITS | Encounter Summary ---
Author Organization [facility] Address [address] [place] [address] Phone Care Team Providers Care Digital Forensics Examiner Name Role Phone Vladimir Apple MD Primary Care Provider [phone] Eric Mills MD Unavailable [phone] Encounter Details Date Type Department Care Team (Late st Contact Info) Description 06/18/2024 Results Follow-Up [facility] Surgery [address] [facility] Floor 5 [place] [address] Johann Becker MD [address] [place] [address] Basic metabolic panel, PTH, eGFR Social [...] on file 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
--- OUTSIDE RECORDS SUMMARY | 2024-08-20 12:38 | XMS_ITS | Clinical Summary ---
Author Organization [facility] [employer] Address [address] [place] [address] Care Team Providers Care All Around Presser Name Role Phone Vladimir Apple MD Primary Care Provider [phone] Source Comments [facility] [employer],non-owned Affiliates and Associated Physician Practices is amultiple site organization consisting of ambulatory clinics and hospital sitesin [place], [place], [place] and [place]. This disclosure is being madepursuant to the Care Everywhere program and may not contain all information available regarding this patient. Last updated 17.[facility] [employer] Allergies No known active allergies Medications * [...] (one) tablet by mouth once daily Active New [place]-3 Fatty Acids (fish oil) 500 MG capsule [...] MEDICARE AWV CALENDAR YEAR 2024 INFLUENZA VACCINE (#1) 2024 , 10/05/2021, 10/22/2020, Additional history exists COLOGUARD (AGES [...] patient's age to complete this topic Insurance [facility] MANAGED MEDICARE ADV Care Teams All Around Presser Relationship Specialty Start Date End Date Vladimir Apple MD [address] [place] [id number] PCP - General Family Medicine 07/25/23
--- OUTSIDE RECORDS SUMMARY | 2024-08-20 12:38 | XMS_ITS | Clinical Summary ---
Author Organization [facility] Address [address] [place] [address] Care Team Providers Care Senior Applications Developer Name Role Phone Vladimir Apple MD Primary Care Provider [phone] Eric Mills MD Unavailable [phone] Allergies No known active allergies Medications cholecalciferol [...] Team Description 06/18/2024 9:00 AM CDT Lab [facility] Lab [address] [place] [address] Hyperparathyroidism 06/18/2024 Telephone [facility] [address] [place] [address] 5 [place] [address] Mami Ngo RN 06/18/2024 Results Follow-Up [facility] Surgery [address] [place] [address] 5 [place] [address] Johann Becker MD Basic metabolic panel, PTH, eGFR 06/11/2024 2:00 PM CDT Office Visit [facility] Cardiology [address] [place] [phone] Prosper Del Angel MD Aneurysm of ascending aorta without rupture (Primary Dx); Nonrheumatic aortic (valve) insufficiency; Essential hypertension; Hypercholesteremia 06/05/2024 Telephone [facility] [address] [place] [address] Floor 8 [place] [address] Johann Becker MD 06/04/2024 Telephone [facility] [address] [place] [address] 5 [place] [address] Mami Ngo RN 06/04/2024 Orders Only [facility] [address] [place] [address] 5 [place] [address] Mami Ngo RN Hyperparathyroidism (Primary Dx) 06/03/2024 Results Follow-Up [facility] [address] [place] [address] Johann Becker MD Basic metabolic panel, PTH, eGFR 06/02/2024 4:15 PM CDT Lab [facility] - Lab Collection [address] [place] [address] 5 [place] [address] Hyperparathyroidism 06/02/2024 3:00 PM CDT Office Visit [facility] [address] [place] [address] Johann Becker MD Hyperparathyroidism (Primary Dx) 05/22/2024 Results Follow-Up [facility] Oncology [address] [place] [phone] Johann Becker MD Surgical pathology from Last 3 Months Surgical History Surgery [...] Hypertension Father Carlos Pfeiffer Arthritis Mother Becka Stone Rheum arthritis Mother Becka Stone Heart disease Sister Meagan briggs Anesthesia problems Neg Hx Relation Name Status Comments Father Carlos Stone Exp age 90 intr acranial bleed.after a [...] on file 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 Right: Neck Other 05/30/2024 N/A / / Parathyroid Tissue - Lup Explanted:Qty: 1 on 05/16/2024 by Johann Becker MD at [facility] Left: Neck Other 05/30/2024 N/A / / Procedures Procedure Name Priority Date/Time Associated Diagnosis Comments EGFR Routine 06/18/2024 9:12 AM CDT Hyperparathyroidism PTH Routine 06/18/2024 9:12 AM CDT Hyperparathyroidism BASIC METABOLIC PANEL Routine 06/18/2024 9:12 AM CDT Hyperparathyroidism POCT LIPID PANEL Routine 06/11/2024 2:02 PM CDT Hypercholesteremia EGFR Routine 06/02/2024 4:12 PM CDT Hyperparathyroidism PTH Routine 06/02/2024 4:12 PM CDT Hyperparathyroidism BASIC METABOLIC PANEL Routine 06/02/2024 4:12 PM CDT Hyperparathyroidism from Last 3 Months Results * (ABNORMAL) [...] ORDERABLES Fi nal Result Performing Organization Address [facility] Co de Phone Number [address] [place] [address] * PTH (06/18/2024 9:12 AM CDT) Pathologist [facility] PTH 27 15 - 65 pg/mL Blood 06/18/2024 9:12 AM CDT 06/18/2024 9:26 AM CDT Johann Becker MD LAB BLOOD ORDERABLES Fi nal Result Performing Organization Address [facility] Co de Phone Number [address] [employer] [address] * (ABNORMAL) Basic metabolic panel (06/18/2024 9:12 AM CDT) Sodium 133(L) 135 - 145 mmol/L Potassium, pl 4.5 3.3 - 4.9 mmol/L [facility] Chloride 97 97 - 110 mmol/L [facility] CO2 25 22 - 32 mmol/L [facility] Anion gap 11 2 - 15 mmol/L [facility] BUN 22 6 - 25 mg/dL [facility] Creatinine 1.32(H) 0.60 - 1.10 mg/dL [facility] Glucose 97 70 - 199 mg/dL [facility] Comment: Interpretive Data Fasting glucose >/= [...] 2022. Calcium 9.5 8.5 - 10.3 mg/dL [facility] Blood 06/18/2024 9:12 AM CDT 06/18/2024 9:26 AM CDT us Johann Becker MD LAB BLOOD ORDERABLES nal Result [id number] [facility] Department [place] [address] * POCT lipid panel (06/11/2024 2:02 PM CDT) [facility] Cholesterol, POC 115 <200 MG/DL HDL, POC [...] BLOOD ORDERABLES Final Result Performing Organization Address City/[facility] Co de Phone Number [facility] [place] [address] * PTH (06/02/2024 4:12 PM CDT) PTH 18 15 - 65 pg/mL Blood 06/02/2024 4:12 PM CDT 06/02/2024 6:11 PM CDT Genoveva Reynaga MD LAB BLOOD ORDERABLES Final Result [facility] [place] [address] * (ABNORMAL) Basic metabolic panel (06/02/2024 4:12 PM CDT) Sodium 136 135 - 145 mmol/L Potassium, pl 4.6 3.3 - 4.9 mmol/L [facility] Chloride 95(L) 97 - 110 mmol/L [facility] CO2 28 22 - 32 mmol/L [facility] Anion gap 13 2 - 15 mmol/L [facility] BUN 27(H) 6 - 25 mg/dL [facility] Creatinine 1.42(H) 0.60 - 1.10 mg/dL [facility] Glucose 97 70 - 199 mg/dL [facility] Comment: Interpretive Data Fasting glucose >/= 126 [...] 2022. Calcium 11.1(H) 8.5 - 10.3 mg/dL [facility] Blood 06/02/2024 4:12 PM CDT 06/02/2024 4:32 PM CDT us Genoveva Reynaga MD LAB BLOOD ORDERABLES Final Result [facility] [place] [address] from Last 3 Months Insurance HU[employer] CHOICE MEDICARE PPO HU[employer] MEDICARE HMO Advance Directives For more information, please contact: [phone] * Full Code (Latest Code Status on File) Date Activated Date Inactivated Comments 05/16/2024 1:22 PM 05/17/2024 9:10 PM Care Teams Senior Applications Developer Relationship Specialty Start Date End Date Vladimir Apple MD PCP - General Family Practice 11/27/22 Eric Mills MD [address] [place] [address] Referring Physician Internal Medicine 03/17/24
--- OUTSIDE RECORDS SUMMARY | 2024-08-20 12:38 | XMS_ITS | Data Portability ---
Author Organization [place] [facility], Main Office Address [address] [place] [address] Care Team Providers Care Residential Building Inspector Name Role Phone REJI JOY Primary Care Provider Assessment No assessment recorded. Plan of Treatment Reminders Order Date Submit Date Provider Last Modified By Organization Details Last Modified Time Details Appointments None recorded. Lab vitamin D, 25-hydroxy , total, serum [address] (Lab), [address] [place] [address], [address], 3 14:31:31 CMP, serum or plasma [address] (Lab), [address] [place] [address], [address], 3 14:31:32 phosphorus , serum or plasma [address] (Lab), [address] [place] [address], [address], 3 14:31:32 PTH (parathyro id hormone), intact + calcium, serum or plasma [address] (Lab), [address] [place] [address], [address], 3 14:31:32 TSH + free T4, serum [address] (Lab), [address] [place] [address], [address], 3 14:31:31 T3, free, serum or plasma [address] (Lab), [address], [place], [address], 3 14:31:32 Referral ENT surgery referral - Needs parathyroi d surgeon; has osteoporos is of hips bilaterall y; calcium under 11 mg/dL only because we have her on cinacalcet 2022 023 [facility], [address], [address], [place], [address], 3 14:40:32 Procedures None recorded. Surgeries None recorded. Imaging SPECT-CT, parathyroi d 2022 023 [email or web address] [facility] Radiology Special Procedures Only, [address] [facility] , [place], [address], 3 14:34:24 Medication Orders None recorded. Patient [...] 02/28/2022 DEXA No observ ation record ed. [id number] [facility] [address], [place], [address], 04/12/2022 04:52:32 Result Notes None recorded. Problems Name Problem SNOMED Code Status Onset Date Resolution Date Notes Provider Name and Address Organization Details Recorded Time Hyperparathyr oidism 44806887 Active 2022 Christen Deluna MD [address], [address], [place], [address] , [facility] [employer] 3 14:20:41 Postmenopausa l osteoporosis 461555841 Active 2022 Christen Deluna MD [address] [facility] [address], [place], [address] , [facility] [employer] [facility] 3 14:26:33 Primary hyperparathyr oidism 14913182 Active 2021 Not Available [facility] 3 04:46:11 Impaired fasting glycemia 288680329 Active 2021 Not Available [facility] 3 04:46:11 Hypothyroidis m 01697670 Active 2021 Not Available [facility] 3 04:46:11 Problem Notes None recorded. Medical [...] Body weight Body temperature Heart rate Systolic And Diastolic Provider Name and Address Organization Details Last Updated DateTime 3 168.91 cm 21.6 kg/m2 82188.5 6 g 97.6 [degF] 63 /min 130/84 mm[Hg] Fatoumata Cortez CMA [place] [facility] 3 14:05:27 Date Recorded Body mass index (BMI) Body height Oxygen saturation Oxygen saturation in Arterial blood by Pulse oximetry Heart rate Body temperature Body weight Systolic And Diastolic Provider Name and Address Organization Details Last Updated DateTime 1 21.3 kg/m2 168.91 cm 98 % 98 % 58 /min 98.4 [degF] 99160.3 8 g 100/62 mm[Hg] Not Available [facility] 3 04:44:54 Date Recorded Body mass index (BMI) Body height Oxygen saturation Oxygen saturation in Arterial blood by Pulse oximetry Heart rate Body temperature Body weight Systolic And Diastolic Provider Name and Address Organization Details Last Updated DateTime 1 21.6 kg/m2 168.91 cm 98 % 98 % 53 /min 98.3 [degF] 08710.5 6 g 128/70 mm[Hg] Not Available [facility] 3 04:44:54 Date Recorded Body mass index (BMI) Body height Oxygen saturation Oxygen saturation in Arterial blood by Pulse oximetry Heart rate Body temperature Body weight Systolic And Diastolic Provider Name and Address Organization Details Last Updated DateTime 2 20.3 kg/m2 168.91 cm 98 % 98 % 60 /min 97.6 [degF] 93919.1 g 118/80 mm[Hg] Not Available [facility] 3 04:44:54 Social History Question Answer Notes LastModified by Gevo Details LastModified Time Tobacco Smoking Status Never Smoker Not Available [facility] 04/12/2022 04:30:16 What Is Your Level Of Caffeine Consumption? Moderate [id number] Information not available 04/12/2022 How Much Tobacco Do You Chew? None [id number] Information not available 04/12/2022 In The 14 Days Before Symptom Onset, Have You Had Close Contact With A Laboratory-confirm ed COVID-19 While That Case Was Ill? No [id number] Information not available 04/12/2022 In The 14 Days Before Symptom Onset, Have You Had Close Contact With A Person Who Is Under Investigation For COVID-19 While That Person Was Ill? No [id number] Information not available 04/12/2022 Which Illicit Or Recreational Drugs Have You Used? None [id number] Information not available 04/12/2022 What Is Your Relationship Status? [id number] Information not available 04/12/2022 Sex: Unknown Functional Status Question Answer Note LastModified by [employer] Details LastModified Time What is your level of alcohol consumption? None [id number] Information not available 04/12/2022 Do you or have you ever used e-cigarettes or vape? Never used electronic cigarettes [id number] Information not available 04/12/2022 Mental Status None recorded. Family History Nothing Reported. Medical History Condition Response HYPERTENSION Y HYPERTHYROIDISM Y Gynecological HistoryNo gynecological history recorded. Obstetrics History GPAL:G 0 P 0 0 0 0 Past Encounters Encounter ID Performer Location Encounter Start Date Encounter Closed Date Diagnosis/Indication Diagnosis SNOMED-CT Code Diagnosis ICD10 Code Diagnosis Note [id number] MD MARIE Whiting [facility] [place] [address] [place] [address] 05/25/2020 00:00:00 05/25/2020 15:40:32 [id number] MD MARIE Whiting[place] [address] [place] [address] 11/23/2020 00:00:00 11/23/2020 16:42:54 [id number] [facility]_Histor ic_[facility] Kenyatta Oseguera [address] [place] [address] 11/25/2021 00:00:00 11/25/2021 17:16:15 [id number] Christen Deluna MD [facility] Kenyatta Oseguera [address] [place] [address] 04/26/2022 13:57:01 04/26/2022 14:34:24 Hyperparathyroidism 72697318 E21.3 Last serum calcium of 11.3 mg/dL- [...] scan for localizati on. Postmenopa usal osteoporosis 498044235 M81.0 She has finding of aggressive hyperparat hyroidism- due to this finding she should consider undergoing parathyroi dectomy-re ferral to ENT made and will discuss prolia injections following parathyroi dectomy- will need to d/c cinacalcet due to risk for hypocalcem ia in combinatio n with prolia injections . Hypothyroidism 67521571 E03.9 TSH and FT4 in ideal range- [...] n in the electronic health record, independen kandiy interpreti ng results and communicat ing results to the patient. RTC in 3-4 months. Patient was provided a handwritte n lab order which contains our fax number. If she chooses to go outside of the [facility] system to obtain labwork she was [...] Young Member ID Guarantor Name 03/16/2023 1 [facility] (MEDICARE REPLACEMENT/A DVANTAGE - HMO) [id number] Freida [place] [id number] Freida [place] Notes Date Note Type Note [...] Christen Deluna MD [address] [facility], [address] [address], [place], [address], [place] [facility] 04/26/2022 14:37:42 OBGyn Episode No OBEpisode recorded.
--- OUTSIDE RECORDS SUMMARY | 2024-08-20 12:38 | XMS_ITS | Referral Summary ---
Author Organization [facility] Address [address] [place] [address] Care Team Providers Care Integrity Consultant Name Role Phone Vladimir Apple MD Primary Care Provider [phone] Eric Mills MD Unavailable Encounters Date Type Department Care Team Description 06/18/2024 Telephone [facility] Surgery [address] [place] [address] Floor 5 [place] [address] Mami Ngo RN 06/18/2024 Results Follow-Up [facility] Surgery [address] [place] [address] 5 [place] [address] Johann Becker MD Basic metabolic panel, PTH, eGFR 06/18/2024 9:00 AM CDT Lab [facility] Lab [address] [place] [address] Hyperparathyroidism 06/11/2024 2:00 PM CDT Office Visit [facility] Cardiology [address] [facility] [address] [place] [phone] Prosper Del Angel MD Aneurysm of ascending aorta without rupture (Primary Dx); Nonrheumatic aortic (valve) insufficiency; Essential hypertension; Hypercholesteremia 06/05/2024 Telephone [facility] Surgery [address] [place] [address] Floor 8 [place] [address] Johann Becker MD 06/04/2024 Telephone [facility] Surgery [address] [place] [address] Floor 5 [place] [address] Mami Ngo RN 06/04/2024 Orders Only [facility] Floor 5 [place] [phone] Mami Ngo RN Hyperparathyroidism (Primary Dx) 06/03/2024 Results Follow-Up [facility] Surgery [address] [place] [address] 5 [place] [address] Johann Becker MD Basic metabolic panel, PTH, eGFR 06/02/2024 4:15 PM CDT Lab [facility] [place] - [facility] Floor 5 [place] [address] Hyperparathyroidism 06/02/2024 3:00 PM CDT Office Visit [facility] Surgery [address] [place] [address] 5 [place] [address] Johann Becker MD Hyperparathyroidism (Primary Dx) 05/22/2024 Results Follow-Up [facility] Oncology [address] [place] [address] 5 [place] [phone] Johann Becker MD Surgical pathology from Last 3 Months Allergies No known [...] Active Problems Problem Noted Date Diagnosed Date HPT (hyperparathyroidism) 05/16/2024 Hyperparathyroidism 04/17/2024 Nonrheumatic aortic (valve) [...] on file 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 Right: Neck Other 05/30/2024 N/A / / Parathyroid Tissue - Lup Explanted:Qty: 1 on 05/16/2024 by Johann Becker MD at [facility] Left: Neck Other 05/30/2024 N/A [...] MD LAB BLOOD ORDERABLES Fi nal Result [facility] [address] [facility] Department [place] [address] * PTH (06/18/2024 9:12 AM CDT) PTH 27 15 - 65 pg/mL Blood 06/18/2024 9:12 AM CDT 06/18/2024 9:26 AM CDT Johann Becker MD LAB BLOOD ORDERABLES Fi nal Result Performing Organization Address [facility]/ZIP Co de Phone Number LYNDA [address] [place] [address] * (ABNORMAL) Basic metabolic panel (06/18/2024 9:12 AM CDT) [facility] Sodium 133(L) 135 - 145 mmol/L Potassium, pl 4.5 3.3 - 4.9 mmol/L [facility] Chloride 97 97 - 110 mmol/L [facility] CO2 25 22 - 32 mmol/L [facility] Anion gap 11 2 - 15 mmol/L [facility] BUN 22 6 - 25 mg/dL [facility] Creatinine 1.32(H) 0.60 - 1.10 mg/dL [facility] Glucose 97 70 - 199 mg/dL [facility] Comment: Interpretive Data Fasting glucose [...] 2022. Calcium 9.5 8.5 - 10.3 mg/dL [facility] Blood 06/18/2024 9:12 AM CDT 06/18/2024 9:26 AM CDT Johann Becker MD LAB BLOOD ORDERABLES Fi nal Result Performing Organization Address [facility] Co de Phone Number LYNDA [address] [place] [address] * POCT lipid panel (06/11/2024 2:02 PM CDT) [facility] Cholesterol, POC 115 <200 MG/DL HDL, POC [...] Reynaga MD LAB BLOOD ORDERABLES Final Result [facility] Department [place] [address] * PTH (06/02/2024 4:12 PM CDT) PTH 18 15 - 65 pg/mL Blood 06/02/2024 4:12 PM CDT 06/02/2024 6:11 PM CDT us Genoveva Reynaga MD LAB BLOOD ORDERABLES Final Result [facility] Department [place] [address] * (ABNORMAL) Basic metabolic panel (06/02/2024 4:12 PM CDT) Pathologist [facility] Sodium 136 135 - 145 mmol/L Potassium, pl 4.6 3.3 - 4.9 mmol/L [facility] Chloride 95(L) 97 - 110 mmol/L [facility] CO2 28 22 - 32 mmol/L [facility] Anion gap 13 2 - 15 mmol/L [facility] BUN 27(H) 6 - 25 mg/dL [facility] Creatinine 1.42(H) 0.60 - 1.10 mg/dL [facility] Glucose 97 70 - 199 mg/dL [facility] Comment: Interpretive Data Fasting glucose >/= 126 [...] 2022. Calcium 11.1(H) 8.5 - 10.3 mg/dL [facility] Blood 06/02/2024 4:12 PM CDT 06/02/2024 4:32 PM CDT us Genoveva Reynaga MD LAB BLOOD ORDERABLES Final Result [facility] Department [place] [address] from Last 3 Months Insurance [employer] CHOICE MEDICARE PPO [facility] [address] [id number] [facility] [address] [id number] Advance Directives For more information, please contact: [phone] * Full Code (Latest Code Status on File) Date Activated Date Inactivated Comments 05/16/2024 1:22 PM 05/17/2024 9:10 PM Care Teams Integrity Consultant Relationship Specialty Start Date End Date Vladimir Apple MD PCP - General Family Practice 11/27/22 Eric Mills MD [address] [address] Referring Physician Internal Medicine 03/17/24
== END 2024-08-20 12:34 | disposition home or self-care (01) ==
PROVIDERS: PCP Family Medicine; Visit Provider Internal Medicine
DX: I71.21 Aneurysm of the ascending aorta, without rupture (principal)
CPT/HCPCS: 71250

== ENCOUNTER 2024-09-30 09:29 | Outpatient (CLI) | payer MEDICARE, SELFPAY ==
--- OUTSIDE RECORDS SUMMARY | 2024-09-30 09:49 | XMS_ITS | Encounter Summary ---
Author Organization [facility] Address [address] [place] [address] Care Team Providers Care Munitions Handler Name Role Phone Javed Chaudhary MD Primary Care Provider [phone] Lion Crane DO Primary Care Provider [phone] Vladimir Apple MD Primary Care Provider [phone] Eric Mills MD Unavailable [phone] Encounter Details Date Type Department Care Team (Late st Contact Info) Description 05/23/2016 Orders Only [facility] ProviderCristopher MD [address] [place] [address] Social History Tobacco Use Types Packs/Day Years Used Date Smoking Tobacco: Never Alcohol Use Standard Drinks/Week Comments Yes 0 (1 standard drink = 0.6 oz pur e alcohol) Comments Unknown Sex and Gender Information Value Date Recorded Sex Assigned at Not on file 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 Gender Identity Not on file Sexual [...] on filedocumented in this encounter Care Teams Munitions Handler Relationship Specialty Start Date End Date Javed Chaudhary MD [address] [place] [address] PCP - General 05/12/16 07/16/18 Lion Crane DO [address] [place] [address] PCP - General Internal Medicine 07/17/18 11/26/22 Vladimir Apple MD [address] [place] [address] PCP - General Family Practice 11/27/22 Eric Mills MD [address] [facility] [address] [place] [address] Referring Physician Internal Medicine 03/17/24 documented as of this encounter
--- OUTSIDE RECORDS SUMMARY | 2024-09-30 09:49 | XMS_ITS | Encounter Summary ---
Author Organization [facility] Address [address] [place] [address] Care Team Providers Care El Teacher Name Role Phone Vladimir Apple MD Primary Care Provider [phone] Eric Mills MD Unavailable [phone] Encounter Details Date Type Department Care Team (Late st Contact Info) Description 08/25/2024 Results Follow-Up [facility] Cardiology [address] [place] [address] Prosper Del Angel MD [address] [place] [address] [address] [place] [address] SCAN - RADIOLOGY/IMAGING Social History Tobacco Use Types Packs/Day Years [...] on file 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
--- OUTSIDE RECORDS SUMMARY | 2024-09-30 09:49 | XMS_ITS | Clinical Summary ---
Author Organization [facility] Address [address] [place] [address] Care Team Providers Care Pearl Restorer Name Role Phone Vladimir Apple MD Primary Care Provider [phone] Eric Mills MD Unavailable [phone] Allergies No known active allergies Medications cholecalciferol [...] mouth daily 30 tablet 11 4 Active multivitamin tablet Take 1 tablet [...] to 6 doses 6 tablet 5 Active spironolactone-hy droCHLOROthiazide (ALDACTAZIDE) 25-25 mg per tabletIndications :Primary hypertension TAKE 1 TABLET BY MOUTH EVERY DAY 90 tablet 3 5 Active Active Problems Problem Noted Date Diagnosed Date HPTH (hyperparathyroidism) 05/16/2024 Hyperparathyroidism 04/17/2024 Nonrheumatic aortic (valve) insufficiency 2017 Aneurysm, ascending aorta 07/23/2017 Essential hypertension 07/23/2017 Hypercholesteremia 07/23/2017 Myalgia 07/23/2017 Encounters Date Type Department Care Team Description 08/25/2024 Results Follow-Up 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 Gender Identity Not on file Sexual Orientation [...] 10/18/2019, 12/13 Medical Devices Explanted Type Area Passenger Car Conductor Device Identifier Shelf Expiration Date Model / Serial / Lot Parathyroid Tissue - Rlp Explanted:Qty: 1 on 05/16/2024 by Johann Becker MD at [facility] Right: Neck Other 05/30/2024 N/A / / Parathyroid Tissue - Lup Explanted:Qty: 1 on 05/16/2024 by Johann Becker MD at [facility] Left: Neck Other 05/30/2024 N/A / / Procedures Procedure Name Priority Date/Time Associated Diagnosis Comments SCAN - RADIOLOGY/IMAGING 08/20/2024 from Last 3 Months Results * SCAN - RADIOLOGY/IMAGING (08/20/2024) Anatomical Region Laterality Modality Other us Ripa Rossana Del Angel MD Final R esult from Last 3 Months Insurance HUMANA CHOICE MEDICARE PPO [facility] [address] [place] [id number] [facility] MEDICARE HMO [facility] [address] [place] [id number] Advance Directives For more information, please contact: [phone] * Full Code (Latest Code Status on File) Date Activated Date Inactivated Comments 05/16/2024 1:22 PM 05/17/2024 9:10 PM Care Teams Pearl Restorer Relationship Specialty Start Date End Date Vladimir Apple MD PCP - General Family Practice 11/27/22 Eric Mills MD [address] [place] [address] Referring Physician Internal Medicine 03/17/24
--- OUTSIDE RECORDS SUMMARY | 2024-09-30 09:49 | XMS_ITS | Clinical Summary ---
Author Organization [facility] Address [address] [place] [address] Care Team Providers Care Control Valve Mechanic Name Role Phone Vladimir Apple MD Primary Care Provider [phone] Source Comments [facility],non-owned Affiliates and Associated Physician Practices is amultiple site organization consisting of ambulatory clinics and hospital sitesin [place], [place], [place] and [place]. This disclosure is being madepursuant to the Care Everywhere program and may not contain all information available regarding this patient. Last updated 17.[facility] Allergies No known active allergies Medications * [...] (one) tablet by mouth once daily Active [place]-3 Fatty Acids (fish oil) 500 MG capsule [...] patient's age to complete this topic Insurance [facility] MANAGED MEDICARE ADV Care Teams Control Valve Mechanic Relationship Specialty Start Date End Date Vladimir Apple MD [address] [place] [phone] PCP - General Family Medicine 07/25/23
[2024-09-30 10:48] LABS: Alanine Aminotransferase 38 U/L (6-35); Albumin Level 4.9 g/dL (3.5-5.1); Alkaline Phosphatase 53 U/L (38-126); Anion Gap 9 mmol/L (4-12); Aspartate Amino Transferase 36 U/L (14-36); Bilirubin,Total 0.6 mg/dL (0.2-1.3); Blood Urea Nitrogen 28 mg/dL (7-17); Calcium 9.9 mg/dL (8.4-10.2); Carbon Dioxide 25 mmol/L (22-30); Chloride 97 mmol/L (98-107); Estimated Glomerular Filt Rate 40; Glucose 102 mg/dL (65-110); Potassium 4.3 mmol/L (3.4-5.0); Sodium 131 mmol/L (137-145); Total Protein 7.7 g/dL (6.3-8.2)
[2024-09-30 11:18] LABS: Thyroid Stimulating Hormone 0.561 uIU/mL (0.465-4.680)
[2024-09-30 17:34] LABS: Parathyroid Intact 28.6 pg/mL (14.5-75.2)
[2024-09-30 17:35] LABS: Free T4 Free Thyroxine 1.52 ng/dL (0.78-2.19)
[2024-10-01 18:08] LABS: Calcium, Ionized 5.2 mg/dL (4.5-5.6)
== END 2024-09-30 09:30 | disposition home or self-care (01) ==
PROVIDERS: PCP Family Medicine; Visit Provider Internal Medicine
DX: E03.9 Hypothyroidism, unspecified (principal); E21.3 Hyperparathyroidism, unspecified; E78.2 Mixed hyperlipidemia; I10 Essential (primary) hypertension; M81.0 Age-related osteoporosis without current pathological fracture; E04.1 Nontoxic single thyroid nodule
CPT/HCPCS: 36415; 80053; 82306; 82330; 83970; 84439; 84443

== ENCOUNTER 2024-10-27 08:31 | Outpatient (CLI) | payer MEDICARE, SELFPAY ==
--- OUTSIDE RECORDS SUMMARY | 2024-10-27 09:03 | XMS_ITS | Clinical Summary ---
Author Organization [facility] Address [address] [place] [address] Care Team Providers Care Electrical Maintenance Technician Name Role Phone Vladimir Apple MD Primary Care Provider [phone] Source Comments [facility],non-owned Affiliates and Associated Physician Practices is amultiple site organization consisting of ambulatory clinics and hospital sitesin [place], [place], [place] and [place]. This disclosure is being madepursuant to the Care Everywhere program and may not contain all information available regarding this patient. Last updated 17.[facility] Allergies No known active allergies Medications * [...] (one) tablet by mouth once daily Active [place]-3 Fatty Acids (fish oil) 500 MG capsule [...] VACCINE (3 of 3) 04/10/2020 02/14/2020, 12/07 DEPRESSION SCREENING 02/13/2024 MEDICARE AWV CALENDAR YEAR 2024 COVID-19 VACCINE (2024- season) 2024 11/28/2022, 05/23/2022, 12/15/2020, Additional history exists INFLUENZA VACCINE (#1) 2024 , 10/05/2021, 10/22/2020, [...] patient's age to complete this topic Insurance [facility] MANAGED MEDICARE ADV Care Teams Electrical Maintenance Technician Relationship Specialty Start Date End Date Vladimir Apple MD [address] [place] [phone] PCP - General Family Medicine 07/25/23
--- OUTSIDE RECORDS SUMMARY | 2024-10-27 09:03 | XMS_ITS | Encounter Summary ---
Author Organization [facility] Address [address] [place] [address] Care Team Providers Care Sewing Line Baler Name Role Phone Javed Chaudhary MD Primary Care Provider [phone] Lion Crane DO Primary Care Provider [phone] Vladimir Apple MD Primary Care Provider [phone] Eric Mills MD Unavailable [phone] Encounter Details Date Type Department Care Team (Late st Contact Info) Description 05/23/2016 Orders Only [facility] ProviderCristopher MD [address] [place] [address] Social History Tobacco Use Types Packs/Day Years Used Date Smoking Tobacco: Never Alcohol Use Standard Drinks/Week Comments Yes 0 (1 standard drink = 0.6 oz pur e alcohol) Comments Unknown Sex and Gender Information Value Date Recorded Sex Assigned at Not on file 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 Gender Identity Not on file Sexual Orientation [...] on filedocumented in this encounter Care Teams Sewing Line Baler Relationship Specialty Start Date End Date Javed Chaudhary MD [address] [place] [address] PCP - General 05/12/16 07/16/18 Lion Crane DO [address] [place] [address] PCP - General Internal Medicine 07/17/18 11/26/22 Vladimir Apple MD [address] [place] [address] PCP - General Family Practice 11/27/22 Eric Mills MD [address] [facility] 1 [place] [address] Referring Physician Internal Medicine 03/17/24 documented as of this encounter
--- OUTSIDE RECORDS SUMMARY | 2024-10-27 09:03 | XMS_ITS | Encounter Summary ---
Author Organization [facility] Healthcare Address [address] [place] [address] Care Team Providers Care Staff Midwife/Apprenticeship Director Name Role Phone Vladimir Apple MD Primary Care Provider [phone] Eric Mills MD Unavailable [phone] Encounter Details Date Type Department Care Team (Late st Contact Info) Description 08/25/2024 Results Follow-Up [facility] Cardiology [address] [place] [address] Prosper Del Angel MD [address] [place] [address] [address] [place] [address] SCAN - RADIOLOGY/IMAGING Social History [...] on file 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
--- OUTSIDE RECORDS SUMMARY | 2024-10-27 09:03 | XMS_ITS | Clinical Summary ---
Author Organization [facility] Address [address] [place] [address] Care Team Providers Care Storage Battery Inspector And Tester Name Role Phone Vladimir Apple MD Primary Care Provider [phone] Eric Mills MD Unavailable [phone] Allergies No known active allergies Medications cholecalciferol [...] Department Care Team Description 08/25/2024 Results Follow-Up [facility] Cardiology [address] [place] [address] Prosper Del Angel MD SCAN - RADIOLOGY/IMAGING 08/20/2024 Orders Only [facility] Health Information Management [address] [place] [address] Prosper Del Angel MD from Last 3 [...] on file 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 Gender Identity Not on file Sexual Orientation [...] 10/18/2019, 12/13 Medical Devices Explanted Type Area Automobile Tester Device Identifier Shelf Expiration Date Model / Serial / Lot Parathyroid Tissue - Rlp Explanted:Qty: 1 on 05/16/2024 by Johann Becker MD at [facility] Right: Neck Other 05/30/2024 N/A / / Parathyroid Tissue - Lup Explanted:Qty: 1 on 05/16/2024 by Johann Becker MD at [facility] Left: Neck Other 05/30/2024 N/A / / Procedures Procedure Name Priority Date/Time Associated Diagnosis Comments SCAN - RADIOLOGY/IMAGING 08/20/2024 from Last 3 Months Results * SCAN - RADIOLOGY/IMAGING (08/20/2024) Anatomical Region Laterality Modality Other us Ripa Rossana Del Angel MD Final R esult from Last 3 Months Insurance HUMANA CHOICE MEDICARE PPO [facility] [address] [place] [id number] [facility] MEDICARE HMO [facility] [address] [place] [id number] Advance Directives For more information, please contact: [phone] * Full Code (Latest Code Status on File) Date Activated Date Inactivated Comments 05/16/2024 1:22 PM 05/17/2024 9:10 PM Care Teams Storage Battery Inspector And Tester Relationship Specialty Start Date End Date Vladimir Apple MD PCP - General Family Practice 11/27/22 Eric Mills MD [address] [place] [address] Referring Physician Internal Medicine 03/17/24
[2024-10-27 09:36] LABS: Hematocrit 35.7 % (37.0-47.0); Hemoglobin 12.2 g/dL (12.0-15.0); Immature Granulocyte Percent A 0.2 % (0-0.5); Lymphocytes Absolute Auto 0.96 K/mm3 (0.9-3.2); Mean Corpuscular HGB Conc 34.2 g/dl (32-36); Mean Corpuscular Hemoglobin 30.8 pg (26-34); Mean Corpuscular Volume 90.2 fl (80-100); Nucleated Red Blood Cells Absolute Auto 0.000 K/mm3 (0.0-0.012); Nucleated Red Blood Cells Perc 0.0 % (0.0-0.2); Platelet Count Result 272 k/mm3 (150-375); Red Blood Count 3.96 M/mm3 (4.2-5.4); White Blood Count 4.4 K/mm3 (4.5-10.0)
[2024-10-27 09:58] LABS: Cholesterol 136 mg/dL (0-200); HDL Direct 70 mg/dL; Triglycerides 100 mg/dL (<150)
== END 2024-10-27 08:32 | disposition home or self-care (01) ==
PROVIDERS: PCP Family Medicine; Visit Provider Family Medicine
DX: Z79.899 Other long term (current) drug therapy (principal)
CPT/HCPCS: 36415; 80061; 85025

== ENCOUNTER 2025-01-21 14:58 | Outpatient (CLI) | payer MEDICARE, SELFPAY ==
--- NOTE | ~2025-01-21 | XR_ITS ---
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 Findings: No acute fracture or malalignment. No significant degenerative changes. Soft tissues unremarkable. Impression: No acute fracture or malalignment. Reviewed, dictated and finalized at location P. RAL STORES ATTENDANT Impression: No acute fracture or malalignment.
--- NOTE | ~2025-01-21 | CT_ITS ---
EXAMINATION:CT diagnostic chest wo con DATE: 01/21/2025 15:32 INDICATION: Aneurysm TECHNIQUE: Computed tomography (CT) of the chest was performed without intravenous contrast. The dose-length product (DLP) was 147.58 mGy-cm. COMPARISON: August 20, 2024 FINDINGS: 4.8 cm fusiform ascending thoracic aortic aneurysm as measured at the level the right pulmonary artery unchanged compared to the August 20 exam. The aorta tapers to normal size in the distal arch and descending portion. Heart size normal. No significant pericardial effusion or bulky lymphadenopathy. Lungs are clear. Bones intact. No acute process seen in the visualized portions of the upper abdomen. IMPRESSION: No gross interval change on noncontrast exam in 4.8 cm ascending thoracic aortic aneurysm. Reviewed, dictated and finalized at location A. PAPER CARRIERS SUPERVISOR IMPRESSION: No gross interval change on noncontrast exam in 4.8 cm ascending th oracic aortic aneurysm.
--- OUTSIDE RECORDS SUMMARY | 2025-01-21 19:54 | XMS_ITS | Data Portability ---
Author Organization [place] [facility], Main Office Address [address] [place] [address] Care Team Providers Care Platform Mill Supervisor Name Role Phone REJI JOY Primary Care Provider Assessment No assessment recorded. Plan of Treatment Reminders Order Date Submit Date Provider Last Modified By Organization Details Last Modified Time Details Appointments None recorded. Lab vitamin D, 25-hydroxy , total, serum [address] (Lab), [address] [place] [address], [address], 3 14:31:31 CMP, serum or plasma [address] (Lab), [address] [place] [address], [address], 3 14:31:32 phosphorus , serum or plasma [address] (Lab), [address] [place] [address], [address], 3 14:31:32 PTH (parathyro id hormone), intact + calcium, serum or plasma [address] (Lab), [address] [place] [address], [address], 3 14:31:32 TSH + free T4, serum [address] (Lab), [address] [place] [address], [address], 3 14:31:31 T3, free, serum or plasma [address] (Lab), [address], [place], [address], 3 14:31:32 Referral ENT surgery referral - Needs parathyroi d surgeon; has osteoporos is of hips bilaterall y; calcium under 11 mg/dL only because we have her on cinacalcet 2022 023 [facility] [address], [address], [place], [address], 3 14:40:32 Procedures None recorded. Surgeries None recorded. Imaging SPECT-CT, parathyroi d 2022 023 [email or web address] [facility]iology Special Procedures Only, [address] , [place], [address], 3 14:34:24 Medication Orders None recorded. Patient [...] 02/28/2022 DEXA No observ ation record ed. [id number] [facility] [address], [place], [address], 04/12/2022 04:52:32 Result Notes None recorded. Problems Name Problem SNOMED Code Status Onset Date Resolution Date Notes Provider Name and Address Organization Details Recorded Time Primary hyperparathyr oidism 01256894 Active 2021 Not Available [facility] 3 04:46:11 Impaired fasting glycemia 031896668 Active 2021 Not Available [facility] 3 04:46:11 Hypothyroidis m 88343612 Active 2021 Not Available Counts include 234 beds at the [facility] 3 04:46:11 Hyperparathyr oidism 75362941 Active 2022 Christen Deluna MD [address] [facility], [address], [place], [address] , [employer] 3 14:20:41 Postmenopausa l osteoporosis 824488375 Active 2022 Christen Deluna MD [address] [facility], [address], [place], [address] , [employer] 3 14:26:33 Problem Notes None recorded. Medical Equipment None [...] Updated DateTime 3 168.91 cm 21.6 kg/m2 32747.5 6 g 97.6 [degF] 63 /min 130/84 mm[Hg] Fatoumata Cortez CMA [place] [facility] 3 14:05:27 Date Recorded Body mass index (BMI) Body height Oxygen saturation Heart rate Body temperature Body weight Systolic And Diastolic Provider Name and Address Organization Details Last Updated DateTime 1 21.3 kg/m2 168.91 cm 98 % 58 /min 98.4 [degF] 82552.3 8 g 100/62 mm[Hg] Not Available Counts include 234 beds at the [facility] 3 04:44:54 Date Recorded Body mass index (BMI) Body height Oxygen saturation Heart rate Body temperature Body weight Systolic And Diastolic Provider Name and Address Organization Details Last Updated DateTime 1 21.6 kg/m2 168.91 cm 98 % 53 /min 98.3 [degF] 97941.5 6 g 128/70 mm[Hg] Not Available Counts include 234 beds at the [facility] 3 04:44:54 Date Recorded Body mass index (BMI) Body height Oxygen saturation Heart rate Body temperature Body weight Systolic And Diastolic Provider Name and Address Organization Details Last Updated DateTime 2 20.3 kg/m2 168.91 cm 98 % 60 /min 97.6 [degF] 23433.1 g 118/80 mm[Hg] Not Available Counts include 234 beds at the [facility] 04:44:54 Social History Question Answer Notes LastModified by Organizat ion Details LastModified Time Tobacco Smoking Status Never Smoker Not Available Counts include 234 beds at the [facility] 04/12/2022 04:30:16 What Is Your Level Of Caffeine Consumption? Moderate [id number] Information not available 04/12/2022 How Much Tobacco Do You Chew? None [id number] Information not available 04/12/2022 In The 14 Days Before Symptom Onset, Have You Had Close Contact With A Laboratory-confirm ed COVID-19 While That Case Was Ill? No [id number] Information not available 04/12/2022 In The 14 Days Before Symptom Onset, Have You Had Close Contact With A Person Who Is Under Investigation For COVID-19 While That Person Was Ill? No [id number] Information not available 04/12/2022 Which Illicit Or Recreational Drugs Have You Used? None [id number] Information not available 04/12/2022 What Is Your Relationship Status? [id number] Information not available 04/12/2022 Sex: Unknown Functional Status Question Answer Note LastModified by Organizat ion Details LastModified Time What is your level of alcohol consumption? None [id number] Information not available 04/12/2022 Do you or have you ever used e-cigarettes or vape? Never used electronic cigarettes [id number] Information not available 04/12/2022 Mental Status None recorded. Family History Nothing Reported. Medical History Condition Response HYPERTHYROIDISM Y HYPERTENSION Y Gynecological HistoryNo gynecological history recorded. Obstetrics History GPAL:G 0 P 0 0 0 0 Past Encounters Encounter ID Performer Location Encounter Start Date Encounter Closed Date Diagnosis/Indication Diagnosis SNOMED-CT Code Diagnosis ICD10 Code Diagnosis IMO Codes Diagnosis Note [id number] Christen Deluna MD [facility] [employer] [address] [place] [address] 05/25/2020 00:00:00 05/25/2020 15:40:32 [id number] Christen Deluna MD [facility] [employer] [address] [place] [address] 11/23/2020 00:00:00 11/23/2020 16:42:54 [id number] [facility] [address] [place] [address] 11/25/2021 00:00:00 11/25/2021 17:16:15 [id number] Christen Deluna MD [facility] [address] [place] [address] 04/26/2022 13:57:01 04/26/2022 14:34:24 Hyperparathyroidism 50007575 E21.3 Last serum calcium of 11.3 mg/dL- [...] above 11 to 11.5 mg/dL or higher(i ch is does if not taking cinacalcet [...] scan for localizati on. Postmenopa usal osteoporosis 177975125 M81.0 She has finding of aggressive hyperparat hyroidism- due to this finding she should consider undergoing parathyroi dectomy-re ferral to ENT made and will discuss prolia injections following parathyroi dectomy- will need to d/c cinacalcet due to risk for hypocalcem ia in combinatio n with prolia injections . Hypothyroidism 75412174 E03.9 TSH and FT4 in ideal range- [...] she chooses to go outside of the [facility] system to obtain labwork she was [...] Young Member ID Guarantor Name 03/16/2023 [facility] (MEDICARE REPLACEMENT/A DVANTAGE - HMO) [id number] Freida [place] [id number] Freida [place] Notes Date Note Type Note Provider Name and Address Organization Details Recorded Time 3 text/html ROS as noted in the HPI 72 yo female comes in for follow [...] ng/mLALT 47 U/L Christen Deluna MD [address] [facility], [facility] [address], [place], [address], [place] [facility] 04/26/2022 14:37:42 OBGyn Episode No OBEpisode recorded.
--- OUTSIDE RECORDS SUMMARY | 2025-01-21 19:54 | XMS_ITS | Clinical Summary ---
Author Organization [facility] Address [address] [place] [address] Care Team Providers Care Events Assistant Name Role Phone Vladimir Apple MD Primary Care Provider [phone] Source Comments [facility],non-owned Affiliates and Associated Physician Practices is amultiple site organization consisting of ambulatory clinics and hospital sitesin [place], [place], [place] and [place]. This disclosure is being madepursuant to the Care Everywhere program and may not contain all information available regarding this patient. Last updated 17.[facility] Allergies No known active allergies Medications * [...] (one) tablet by mouth once daily Active Orchard-3 Fatty Acids (fish oil) 500 MG capsule [...] patient's age to complete this topic Insurance [facility] MANAGED MEDICARE ADV Care Teams Events Assistant Relationship Specialty Start Date End Date Vladimir Apple MD [address] [place] [address] PCP - General Family Medicine 07/25/23
--- OUTSIDE RECORDS SUMMARY | 2025-01-21 19:54 | XMS_ITS | Encounter Summary ---
Author Organization [facility] Address [address] [place] [address] Care Team Providers Care Sheet Rocker Name Role Phone Javed Chaudhary MD Primary Care Provider [phone] Lion Crane DO Primary Care Provider [phone] Vladimir Apple MD Primary Care Provider [phone] Eric Mills MD Unavailable [phone] Encounter Details Date Type Department Care Team (Late st Contact Info) Description 05/23/2016 Orders Only [facility] ProviderCristopher MD [address] [place] [id number] Social History Tobacco Use Types Packs/Day Years Used Date Smoking Tobacco: Never Alcohol Use Standard Drinks/Week Comments Yes 0 (1 standard drink = 0.6 oz pur e alcohol) Comments Unknown Sex and Gender Information Value Date Recorded Sex Assigned at Not on file 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
--- OUTSIDE RECORDS SUMMARY | 2025-01-21 19:54 | XMS_ITS | Clinical Summary ---
Author Organization [facility] Address [address] [place] [address] Care Team Providers Care Respiratory Therapist Name Role Phone Vladimir Apple MD Primary Care Provider [phone] Eric Mills MD Unavailable [phone] Allergies No known active allergies Medications cholecalciferol [...] (eight) hours 90 tablet 1 5 Active spironolactone-hy droCHLOROthiazide (ALDACTAZIDE) 25-25 mg per tabletIndications :Primary hypertension TAKE 1 TABLET BY MOUTH EVERY DAY 90 tablet 3 5 Active alendronate (FOSAMAX) 70 mg tablet Take 1 tablet (70 mg total) by mouth every 7 days 5 Active Active Problems Problem Noted Date Diagnosed Date HPTH (hyperparathyroidism) 05/16/2024 Hyperparathyroidism 04/17/2024 Nonrheumatic aortic (valve) insufficiency 2017 Aneurysm, ascending aorta 07/23/2017 Essential hypertension 07/23/2017 Hypercholesteremia 07/23/2017 Myalgia 07/23/2017 Encounters Date Type Department Care Team Description 12/17/2024 1:00 PM [employer] OFFICER Office Visit [facility] Card[facility] [address] [place] [address] Gaby Best NP Heart valve disorder (Primary Dx); Heart murmur; Abdominal aortic aneurysm (AAA) without rupture, unspecified part; Essential hypertension; Hypercholesteremia from Last 3 Months Surgical History Surgery Date Site/Laterality Comments CATARACT EXTRACTION Bilateral unsure when BIOPSY 02/12/2023 - 02/12/2024 parathyroid gland TONSILLECTOMY 02/13/1956 - 02/11/1957 Medical History Medical History Date Comments Hx Other Medical htn, glaucoma, hypothyroid, cataracts, hld, AI, ro; Comments: [facility] 09/30/2013 - Osteoporosis 2023 Glaucoma Hypertension Leaky heart valve Thyroid nodule Hyperparathyroidism Arthritis 11/18/2024 Family History Medical History Relation Name Comments Heart disease Father Carlos Pfeiffer took some type of heart med Hypertension Father Carlos Pfeiffer Arthritis Mother Becka Stone Rheum arthritis Mother Becka Pfeiffer Heart disease [...] on file Legal Sex Female 6:52 PM [employer] Gender Identity Not on file Sexual Orientation Not on file Last Filed Vital Signs Vital Sign Reading Time Taken Comments Blood Pressure 114/70 12/17/2024 12:57 PM [employer] Pulse 56 12/17/2024 12:57 PM [employer] Temperature 36.3 C (97.3 F) 06/02/2024 3:32 PM CDT Respiratory Rate 18 06/02/2024 3:32 PM CDT Oxygen Saturation 91% 12/17/2024 12:57 PM [employer] Inhaled Oxygen Concentration - - Weight 63.5 kg (140 lb) 12/17/2024 12:57 PM [employer] Height 170.2 cm (5' 7) 12/17/2024 12:57 PM [employer]IC[employer] Body Mass Index 21.93 12/17/2024 12:57 PM [employer]IC[employer] Plan of Treatment Health Maintenance Due Date Last Done Comments Breast Cancer Screening-Mammogram 1950 Colon Cancer Screening-Colonoscopy 1950 Depression Screening 1950 Hepatitis C Screening 1950 Osteoporosis Screening-Bone Density Scan 1950 Hepatitis B Screening 1968 Well Visit 65+ 2015 Zoster Vaccine (3 of 3) 04/10/2020 02/14/2020, 12/07 Influenza Vaccine (#1) 2024 0, 11/11/2018, 11/25/2017, Additional history exists Fall Risk Assessment 05/17/2025 05/17/2024 DTaP/Tdap/Td Vaccine (2 - Td or Tdap) 10/11/2032 10/11/2022 Pneumococcal vaccine 65+ Completed 10/18/2019, 12/13 Medical Devices Explanted Type Area Drying Machine Receiver Device Identifier Shelf Expiration Date Model / Serial / Lot Parathyroid Tissue - Rlp Explanted:Qty: 1 on 05/16/2024 by Johann Becker MD at [facility] Right: Neck Other 05/30/2024 N/A / / Parathyroid Tissue - Lup Explanted:Qty: 1 on 05/16/2024 by Johann Becker MD at [place] [facility] Left: Neck Other 05/30/2024 N/A / / Insurance [employer] MEDICARE O [employer] MEDICARE HMO Advance Directives For more information, please contact: [phone] * Full Code (Latest Code Status on File) Date Activated Date Inactivated Comments 05/16/2024 1:22 PM 05/17/2024 9:10 PM Care Teams Respiratory Therapist Relationship Specialty Start Date End Date Vladimir Apple MD PCP - General Family Practice 11/27/22 Eric Mills MD [address] [place] [address] Referring Physician Internal Medicine 03/17/24
== END 2025-01-21 14:59 | disposition home or self-care (01) ==
PROVIDERS: PCP Family Medicine; Visit Provider Nurse Practitioner
DX: I71.40 Abdominal aortic aneurysm, without rupture, unspecified (principal); E78.2 Mixed hyperlipidemia; E03.9 Hypothyroidism, unspecified; E83.52 Hypercalcemia; M81.0 Age-related osteoporosis without current pathological fracture; E04.1 Nontoxic single thyroid nodule; I12.9 Hypertensive chronic kidney disease with stage 1 through stage 4 chronic kidney disease, or unspecified chronic kidney disease; Z98.890 Other specified postprocedural states; Z90.89 Acquired absence of other organs; N18.9 Chronic kidney disease, unspecified
CPT/HCPCS: 71250; 73502